=== PATIENT | male | born 1945 | race Caucasian/White ===

== ENCOUNTER 2020-01-04 10:19 | Outpatient (CLI) | payer MEDICARE, SELFPAY ==
--- NOTE | ~2020-01-04 | XR_ITS ---
EXAMINATION: XR lumbar spine 2-3V EXAM DATE: 01/04/2020 10:38 INDICATION: Fall one month ago. Low back pain. TECHNIQUE: Lumber spine frontal, lateral, lateral L5-S1 projections for interpretation. There is no prior study for comparison. FINDINGS: There is moderate disc disease at L4-5 with 2-3 mm retrolisthesis. Mild to moderate disc d isease L3-4. Small endplate osteophytes at these 2 levels. There is moderate lumbar facet arthropathy . No spondylolysis. No endplate erosive change. There is moderate aortoiliac arteriosclerotic disease . Paraspinal soft tissue otherwise unremarkable. Vertebral body heights are maintained. There are no acute fractures identified. IMPRESSION: Moderate lumbar spondylosis. Reviewed, dictated and finalized at location B.
== END 2020-01-04 10:20 | disposition home or self-care (01) ==
PROVIDERS: PCP Emergency Medicine; Visit Provider Emergency Medicine
DX: G89.29 Other chronic pain (principal); M54.9 Dorsalgia, unspecified; M47.896 Other spondylosis, lumbar region
CPT/HCPCS: 72100

== ENCOUNTER 2020-02-02 12:29 | Outpatient (CLI) | payer MEDICARE, SELFPAY ==
--- NOTE | ~2020-02-02 | CT_ITS ---
EXAMINATION: CT lung screening DATE: 02/02/2020 13:19 INDICATION: Personal history of tobacco dependence, current smoker with 260 pack year history TECHNIQUE: Computed tomography (CT) of the chest was performed without intravenous contrast. The dose -length product (DLP) was 195.96 mGy-cm. 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 COMPARISON: None FINDINGS: There is moderate emphysema. No suspicious pulmonary nodules are identified. Mild dependent atelectasis is noted. There is no pleural effusion or pneumothorax. There are changes of prior cardi ac surgery. Mild bilateral gynecomastia is noted. No pathologically enlarged thoracic lymph nodes are identified. The heart size is normal. There is mild thoracic spondylosis. IMPRESSION: 1. Lung-RADS category 1: Negative. Continue annual screening with noncontrast low-dose chest CT in 12 months. Reviewed, dictated and finalized at location A. IMPRESSION: 1. Lung-RADS category 1: Negative. Continue annual screening with noncontrast l ow-dose chest CT in 12 months.
== END 2020-02-02 12:30 | disposition home or self-care (01) ==
PROVIDERS: PCP Emergency Medicine; Visit Provider Internal Medicine Critical Care Medicine
DX: Z12.2 Encounter for screening for malignant neoplasm of respiratory organs (principal); Z87.891 Personal history of nicotine dependence
CPT/HCPCS: G0297

== ENCOUNTER 2020-05-14 08:42 | Outpatient (CLI) | payer MEDICARE, SELFPAY ==
--- NOTE | ~2020-05-14 | CT_ITS ---
EXAMINATION: CT soft tissue neck chest wo EXAM DATE: 05/14/2020 09:14 INDICATION: Shortness of breath, cough. Emphysema. Generalized swelling of neck. Skin cancer. TECHNIQUE: Spiral CT of the neck and chest was performed without contrast. Axial, coronal and sagit cheng images of the neck were reviewed. Axial, coronal and sagittal images of the chest were reviewed. Coronal maximum intensity pixel images of chest reviewed. The dose-length product (DLP) for this e xamination was 1150.36 mGy-cm. The exposure was tailored according to patient size (auto mA exposure control), and iterative reconstruction (ASIR) was used as additional dose reduction technique. Rivera rison is made to prior examination from chest CT 02/02/2020. FINDINGS: NECK: Bilateral internal jugular chain region surgical clips probably endarterectomies but correlate with prior history. The thyroid gland is unremarkable. The submandibular and parotid glands are sy mmetric. There is no cervical lymphadenopathy. There are no masses identified. The airway is un remarkable. Parapharyngeal and pre-glottic fat planes are preserved. Limited evaluation of cervic al vessels on this noncontrast study. Patient has had bilateral ocular lens surgery. There is sma ll to moderate-sized left maxillary sinus retention cyst. There is cervical spondylosis. Sternotomy wires. CHEST: There is mild to moderate emphysema. Some linear right middle lobe scarring unchanged. There are no pleural or pericardial effusions. Tracheobronchial tree is patent. There is no mediastinal , hilar or axillary lymphadenopathy. There is no pneumothorax. Heart normal in size. There are sternotomy wires, and cardiac/coronary surgical changes. Correlate with prior history. Upper abdomen is unremarkable. There is thoracic spondylosis without osteoblastic or osteolytic lesions identifi ed. IMPRESSION: 1. Surgical changes. 2. Left maxillary sinus retention cyst. 3. Mild to moderate emphysema. 4. Linear right middle lobe scarring. Reviewed, dictated and finalized at location B. DENTIAL TECH
== END 2020-05-14 08:43 | disposition home or self-care (01) ==
PROVIDERS: PCP Emergency Medicine; Visit Provider Emergency Medicine
DX: M79.89 Other specified soft tissue disorders (principal); J32.0 Chronic maxillary sinusitis; J43.9 Emphysema, unspecified
CPT/HCPCS: 70490; 71250

== ENCOUNTER 2021-04-04 09:17 | Outpatient (CLI) | payer MEDICARE, SELFPAY ==
[2021-04-04 10:44] LABS: Alanine Aminotransferase 27 U/L (4-50); Albumin Level 4.8 g/dL (3.5-5.1); Alkaline Phosphatase 44 U/L (38-126); Anion Gap 10 mmol/L (8-16); Aspartate Amino Transferase 30 U/L (17-59); Bilirubin,Total 0.6 mg/dL (0.2-1.3); Blood Urea Nitrogen 19 mg/dL (9-20); Calcium 9.8 mg/dL (8.4-10.2); Carbon Dioxide 28 mmol/L (22-30); Chloride 105 mmol/L (98-107); Cholesterol 184 mg/dL (0-200); Creatine Kinase 98 U/L (55-170); Estimated Glomerular Filt Rate > 60; Glucose 147 mg/dL (65-110); HDL Direct 47 mg/dL; Potassium 4.8 mmol/L (3.4-5.0); Sodium 143 mmol/L (137-145); Triglycerides 262 mg/dL (<150)
[2021-04-04 10:55] LABS: LDL Cholesterol Direct 104 mg/dL
== END 2021-04-04 09:18 | disposition home or self-care (01) ==
PROVIDERS: PCP Emergency Medicine; Referring Provider Emergency Medicine
DX: E78.5 Hyperlipidemia, unspecified (principal); E11.9 Type 2 diabetes mellitus without complications
CPT/HCPCS: 36415; 80053; 80061; 82550; 83036

== ENCOUNTER 2021-07-31 09:34 | Outpatient (CLI) | payer MEDICARE, SELFPAY ==
[2021-07-31 10:15] LABS: Hemoglobin A1C 8.4 % (<5.7)
[2021-07-31 10:19] LABS: Alanine Aminotransferase 27 U/L (4-50); Albumin Level 4.3 g/dL (3.5-5.1); Alkaline Phosphatase 41 U/L (38-126); Anion Gap 6 mmol/L (8-16); Aspartate Amino Transferase 28 U/L (17-59); Bilirubin,Total 0.6 mg/dL (0.2-1.3); Blood Urea Nitrogen 18 mg/dL (9-20); Calcium 9.5 mg/dL (8.4-10.2); Carbon Dioxide 29 mmol/L (22-30); Chloride 106 mmol/L (98-107); Cholesterol 163 mg/dL (0-200); Estimated Glomerular Filt Rate > 60; Glucose 143 mg/dL (65-110); HDL Direct 44 mg/dL; Potassium 4.3 mmol/L (3.4-5.0); Sodium 141 mmol/L (137-145); Triglycerides 225 mg/dL (<150)
[2021-07-31 10:30] LABS: LDL Cholesterol Direct 82 mg/dL
[2021-07-31 11:10] LABS: Creatinine Urine 137.7 mg/dL
[2021-07-31 11:15] LABS: MALB Creatinine Ratio 47.7 mg/g (0-30); Microalbumin Urine Random 65.7 mg/L (0-16.7)
== END 2021-07-31 09:35 | disposition home or self-care (01) ==
LOC: ANHLAB 09:39
PROVIDERS: PCP Emergency Medicine; Visit Provider Emergency Medicine
DX: E11.9 Type 2 diabetes mellitus without complications (principal); E78.5 Hyperlipidemia, unspecified
CPT/HCPCS: 36415; 80053; 80061; 82043; 83036

== ENCOUNTER 2021-11-07 07:10 | Outpatient (CLI) | payer MEDICARE, SELFPAY ==
[2021-11-07 07:48] LABS: Albumin Level 4.1 g/dL (3.5-5.1); Anion Gap 7 mmol/L (8-16); Blood Urea Nitrogen 31 mg/dL (9-20); Calcium 8.8 mg/dL (8.4-10.2); Carbon Dioxide 27 mmol/L (22-30); Chloride 106 mmol/L (98-107); Estimated Glomerular Filt Rate 54; Glucose 162 mg/dL (65-110); Phosphorus 3.6 mg/dL (2.5-4.5); Sodium 140 mmol/L (137-145)
[2021-11-07 08:04] LABS: Creatinine Urine 131.1 mg/dL
[2021-11-07 08:07] LABS: Microalbumin Urine Random 52.4 mg/L (0-16.7)
[2021-11-07 08:18] LABS: Creatinine Urine 130.8 mg/dL; Total Protein Urine Random 9 mg/dL; Ur Ttl Prot Creatinine Ratio 0.07 mg/mg (0-0.20)
[2021-11-07 08:28] LABS: Alanine Aminotransferase 21 U/L (4-50); Albumin Level 4.2 g/dL (3.5-5.1); Alkaline Phosphatase 37 U/L (38-126); Anion Gap 6 mmol/L (8-16); Aspartate Amino Transferase 26 U/L (17-59); Bilirubin,Total 0.4 mg/dL (0.2-1.3); Blood Urea Nitrogen 31 mg/dL (9-20); Calcium 8.8 mg/dL (8.4-10.2); Carbon Dioxide 28 mmol/L (22-30); Chloride 106 mmol/L (98-107); Cholesterol 167 mg/dL (0-200); Estimated Glomerular Filt Rate 49; Glucose 164 mg/dL (65-110); HDL Direct 38 mg/dL; Sodium 140 mmol/L (137-145); Triglycerides 250 mg/dL (<150)
[2021-11-07 08:43] LABS: LDL Cholesterol Direct 83 mg/dL
[2021-11-07 08:58] LABS: Hemoglobin A1C 7.7 % (<5.7)
[2021-11-07 09:01] LABS: Prostate Specific Antigen 1.5 ng/mL (< OR = 4.0)
== END 2021-11-07 07:11 | disposition home or self-care (01) ==
PROVIDERS: PCP Emergency Medicine; Visit Provider Emergency Medicine
DX: E11.9 Type 2 diabetes mellitus without complications (principal); E78.5 Hyperlipidemia, unspecified; Z12.5 Encounter for screening for malignant neoplasm of prostate; I12.9 Hypertensive chronic kidney disease with stage 1 through stage 4 chronic kidney disease, or unspecified chronic kidney disease; N18.2 Chronic kidney disease, stage 2 (mild)
CPT/HCPCS: 36415; 80053; 80061; 80069; 82043; 82570; 83036; 84153; 84156; G0103

== ENCOUNTER 2021-12-15 11:43 | Outpatient (CLI) | payer MEDICARE, SELFPAY ==
--- NOTE | ~2021-12-15 | CT_ITS ---
EXAMINATION: CT cervical spine wo con DATE: 12/15/2021 12:14 INDICATION: Neck pain. Head injury. TECHNIQUE: Computed tomography (CT) of the cervical spine was performed without intravenous contrast. Automated exposure control and iterative reconstruction technique were employed. The dose-length pro duct was 488.85 mGy-cm. COMPARISON: None FINDINGS: There is mild emphysema. There are surgical clips in the neck bilaterally. There is 4 degre es dextrocurvature of cervical spine. There is 2 mm anterolisthesis of C7 on T1. Vertebral body heigh ts are normal. There is mildly decreased disc height at C4-C5, severely decreased disc height at C5-C 6 and C6-C7, and mildly decreased disc height at C7-T1. Osseous central spinal canal is developmental ly small from C3 to C7. The following disc levels are specifically discussed: C2-C3: There is mild right and severe left uncovertebral joint osteoarthritis. There is severe bilate ral facet joint osteoarthritis. There is moderate left neural foraminal stenosis. There is no central canal stenosis. C3-C4: There is mild bilateral uncovertebral joint osteoarthritis. There is severe bilateral facet fermin int osteoarthritis. There is mild bilateral neural foraminal stenosis. There is no central canal sten osis. C4-C5: There is severe bilateral uncovertebral joint osteoarthritis. There is severe right and modera te left facet joint osteoarthritis. There is mild bilateral neural foraminal stenosis. There is mild central canal stenosis. C5-C6: There is severe right and mild left uncovertebral joint osteoarthritis. There is mild bilatera l facet joint osteoarthritis. There is mild bilateral neural foraminal stenosis. There is mild centra l canal stenosis. C6-C7: There is severe bilateral uncovertebral joint osteoarthritis. There is moderate bilateral face t joint osteoarthritis. There is moderate bilateral neural foraminal stenosis. There is moderate cent ral canal stenosis. C7-T1: There is no uncovertebral joint osteoarthritis. There is severe bilateral facet joint osteoart hritis. There is moderate bilateral neural foraminal stenosis. There is no central canal stenosis. IMPRESSION: 1. No fracture. 2. Severe cervical spondylosis. Reviewed, dictated and finalized at location A.
--- NOTE | ~2021-12-15 | CT_ITS ---
EXAMINATION: CT brain wo con DATE: 12/15/2021 12:14 INDICATION: Head injury. TECHNIQUE: Computed tomography (CT) of the head was performed without intravenous contrast. The mA wa s adjusted according to patient size. Iterative reconstruction technique was employed. The dose-lengt h product was 605.33 mGy-cm. COMPARISON: None FINDINGS: There is a 15 mm calcified extra-axial mass overlying right frontoparietal region. There is no acute ischemic infarct or intracranial hemorrhage. There are scattered areas of low attenuation i n the cerebral white matter, which is within normal limits for the patient's age. The ventricles are normal in size. There is mild mucosal thickening in the paranasal sinuses. There are likely changes o f ocular lens replacement surgeries. The mastoid air cells are normal. IMPRESSION: 1. 15 mm calcified extra-axial mass overlying right frontoparietal region, consistent with a meningio ma. Reviewed, dictated and finalized at location A. IMPRESSION: 1. 15 mm calcified extra-axial mass overlying right frontoparietal region, cons istent with a meningioma.
== END 2021-12-15 11:44 | disposition home or self-care (01) ==
PROVIDERS: PCP Emergency Medicine; Visit Provider Emergency Medicine
DX: S09.90XA Unspecified injury of head, initial encounter (principal); X58.XXXA Exposure to other specified factors, initial encounter; M47.892 Other spondylosis, cervical region
CPT/HCPCS: 70450; 72125

== ENCOUNTER 2021-12-31 08:04 | Outpatient (CLI) | payer MEDICARE, SELFPAY ==
--- NOTE | ~2021-12-31 | MR_ITS ---
EXAMINATION: MR brain/brain stem wo con DATE: 12/31/2021 08:45 INDICATION: Extra-axial brain tumor. TECHNIQUE: Magnetic resonance imaging (MRI) of the brain and brainstem was performed without intraven ous contrast. COMPARISON: Head CT 12/15/21 FINDINGS: There are diffuse scattered foci of old microhemorrhage in the brain. There are scattered a reas of nonspecific increased T2-weighted signal intensity in the cerebral white matter and sharonda, whi ch is within normal limits for the patient's age. There is a 15 mm calcified extra-axial mass overlyi ng right frontoparietal region. The ventricles are normal in size. There is a mucous retention cyst i n left maxillary sinus. The mastoid air cells are normal. IMPRESSION: 1. 15 mm calcified extra-axial mass overlying right frontoparietal region, consistent with a meningio ma. 2. Foci of old microhemorrhage in the brain, which may be seen with chronic hypertensive encephalopat hy or amyloid angiopathy. Reviewed, dictated and finalized at location A. IMPRESSION: 1. 15 mm calcified extra-axial mass overlying right frontoparietal region, cons istent with a meningioma. 2. Foci of old microhemorrhage in the brain, which may be seen with chronic hyp ertensive encephalopathy or amyloid angiopathy.
== END 2021-12-31 08:05 | disposition home or self-care (01) ==
PROVIDERS: PCP Emergency Medicine; Visit Provider Emergency Medicine
DX: D49.6 Neoplasm of unspecified behavior of brain (principal); R93.0 Abnormal findings on diagnostic imaging of skull and head, not elsewhere classified
CPT/HCPCS: 70551

== ENCOUNTER 2022-04-07 06:50 | Outpatient (CLI) | payer MEDICARE, SELFPAY ==
--- NOTE | ~2022-04-07 | MR_ITS ---
EXAMINATION: MR abdomen wo/w con INDICATION: Indeterminate liver lesion identified on outside hospital CT from October 2021, history of alcohol and tobacco use TECHNIQUE: Coronal SSFSE ARC, WATER:coronal LAVA-FLEX, Coronal 2D FIESTA FatSat, Axial SSFSE BH ARC, Axial 3D DualEcho BH, Axial SSFSE-IR, Axial DWI b=500, Axial 2D FIESTA FatSat, pre and dynamic postco ntrast Axial LAVA ARC, postcontrast Coronal In and Opposed phase LAVA FLEX COMPARISON: None available CONTRAST: Multihance, 20 cc FINDINGS: There is an approximately 5.9 x 5.0 cm mass in liver segment V/ (previously measuring 4.3 x 4.1 cm based on description an oncologist note). The mass demonstrates heterogeneous T2 signal int ensity with some isointense areas and other hyperintense regions. The T2 isointense regions are mildl y hypointense on T1-weighted images. The dilated T2 hyperintense areas are moderately T1 hypointense. There is progressive, heterogeneous enhancement of the mass on postcontrast imaging. There is mild a ssociated capsular retraction. No additional liver mass is identified. The spleen, gallbladder, and a drenal glands are normal. There is a 4 mm round cystic lesion in the body of the pancreas without com munication with the main pancreatic duct. A similar appearing 3 mm lesion is seen in the head of the pancreas. There are no pathologically enlarged abdominal lymph nodes. The kidneys are unremarkable. T here are no dilated loops of bowel. IMPRESSION: 1. Mass of the right hepatic lobe with interval enlargement (based on prior report) which may reflect primary malignancy such as hepatocellular carcinoma or cholangiocarcinoma or metastatic disease. Bio psy is recommended. Reviewed, dictated and finalized at location A. IMPRESSION: 1. Mass of the right hepatic lobe with interval enlargement (based on prior rep ort) which may reflect primary malignancy such as hepatocellular carcinoma or c holangiocarcinoma or metastatic disease. Biopsy is recommended.
[2022-04-07 10:06] LABS: Alanine Aminotransferase 35 U/L (6-50); Albumin Level 4.4 g/dL (3.5-5.1); Alkaline Phosphatase 43 U/L (38-126); Anion Gap 10 mmol/L (8-16); Aspartate Amino Transferase 35 U/L (17-59); Bilirubin,Total 0.6 mg/dL (0.2-1.3); Blood Urea Nitrogen 24 mg/dL (9-20); Calcium 9.6 mg/dL (8.4-10.2); Carbon Dioxide 26 mmol/L (22-30); Chloride 103 mmol/L (98-107); Cholesterol 156 mg/dL (0-200); Estimated Glomerular Filt Rate 46; Glucose 140 mg/dL (65-110); HDL Direct 45 mg/dL; Potassium 4.4 mmol/L (3.4-5.0); Sodium 139 mmol/L (137-145); Triglycerides 149 mg/dL (<150)
[2022-04-07 10:14] LABS: Hemoglobin A1C 7.5 % (<5.7)
[2022-04-07 10:17] LABS: LDL Cholesterol Direct 95 mg/dL
[2022-04-07 10:45] LABS: Microalbumin Urine Random 13.2 mg/L (0-16.7)
[2022-04-07 10:47] LABS: Creatinine Urine 13.6 mg/dL; MALB Creatinine Ratio 97.1 mg/g (0-30)
== END 2022-04-07 06:51 | disposition home or self-care (01) ==
PROVIDERS: PCP Emergency Medicine; Visit Provider Internal Medicine Hematology & Oncology
DX: E78.5 Hyperlipidemia, unspecified (principal); E11.9 Type 2 diabetes mellitus without complications; K76.9 Liver disease, unspecified
CPT/HCPCS: 36415; 74183; 80053; 80061; 82043; 82105; 83036; 85025; A9577

== ENCOUNTER 2022-04-07 08:26 | Outpatient (CLI) | payer MEDICARE, SELFPAY ==
[2022-04-07 09:54] LABS: Basophils Percent Auto 0.2 % (0.2-1.2); Eosinophils Absolute Auto 0.1 K/mm3 (0-0.3); Eosinophils Percent Auto 1.2 % (0-4.4); Hematocrit 46.1 % (42.0-52.0); Hemoglobin 14.9 g/dL (14.0-18.0); Immature Granulocyte Absolute 0.07 K/mm3 (0.00-0.031); Immature Granulocyte Percent A 0.8 % (0-0.5); Lymphocytes Absolute Auto 1.45 K/mm3 (0.9-3.2); Lymphocytes Percent Auto 16.4 % (18.3-44.2); Mean Corpuscular HGB Conc 32.3 g/dl (32-36); Mean Corpuscular Hemoglobin 32.5 pg (26-34); Mean Corpuscular Volume 100.7 fl (80-100); Mean Platelet Volume 10.9 fl (7.4-10.4); Monocytes Absolute Auto 0.9 K/mm3 (0.1-0.6); Monocytes Percent Auto 9.8 % (2.6-8.5); Neutrophils Absolute Auto 6.3 K/mm3 (1.3-6.7); Neutrophils Percent Auto 71.6 % (45.5-73.1); Platelet Count Result 207 k/mm3 (150-375); Red Blood Count 4.58 M/mm3 (4.6-6.20); Red Cell Distribution Width 13.2 % (11.5-14.5); White Blood Count 8.9 K/mm3 (4.5-10.0)
[2022-04-07 10:07] LABS: Alanine Aminotransferase 35 U/L (6-50); Albumin Level 4.4 g/dL (3.5-5.1); Alkaline Phosphatase 42 U/L (38-126); Anion Gap 11 mmol/L (8-16); Aspartate Amino Transferase 36 U/L (17-59); Bilirubin,Total 0.6 mg/dL (0.2-1.3); Blood Urea Nitrogen 24 mg/dL (9-20); Calcium 9.4 mg/dL (8.4-10.2); Carbon Dioxide 25 mmol/L (22-30); Chloride 103 mmol/L (98-107); Estimated Glomerular Filt Rate 49; Glucose 140 mg/dL (65-110); Potassium 4.4 mmol/L (3.4-5.0); Sodium 139 mmol/L (137-145)
[2022-04-12 17:59] LABS: Alpha Fetoprotein Tumor Marker 1394.5 ng/mL (<6.1)
== END 2022-04-07 08:27 | disposition home or self-care (01) ==
PROVIDERS: PCP Emergency Medicine; Visit Provider Internal Medicine Hematology & Oncology
DX: K76.9 Liver disease, unspecified (principal)
CPT/HCPCS: 36415; 80053; 82105; 85025

== ENCOUNTER 2022-04-27 03:09 | Outpatient (CLI) | payer MEDICARE, SELFPAY ==
--- NOTE | 2022-04-16 11:38 | PC.NURSE ---
Pre Radiology instructions Report to the Outpatient Waiting Room, entrance under the green pavilion located off [facility], at time __729 on date . Procedure Time: . YOU MAY BE MONITORED AT HOSPITAL FOR UP TO 4 HOURS AFTER YOUR PROCEDURE. One visitor will be allowed to accompany the patient into the hospital. The visitor will be instructed to remain with patient at all times or leave the building due to restrictions. We will allow the visitor to come back to the postoperative area when patient is ready. NO children visitors allowed at this time. You and your visitor will be asked to self-screen and do not enter if you have any COVID symptoms. A mask is required within the hospital. Patients are to have no food or drink 6 hours prior to procedure time Driving will be restricted after the procedure, you must have a person to drive you home. Labs will be drawn in preop area and once reviewed, you will be taken to radiology area for procedure. When the procedure is completed, you will be taken to outpatient where you will be monitored for several hours. You may have one visitor in this area. Other than holding anti-coagulants, patient may take other medication(s) as scheduled. Prior to your appointment date patients are instructed to hold anti-coagulants after discussing with ordering provider to stop. If unable to discontinue anti-coagulants please notify radiologist. No aspirin or warfarin (Coumadin) for 7 days prior to the procedure. No clopidogrel (Plavix), ticagrelor (Brilinta), prasugrel (Effient) or dabigatran (Pradaxa) for 5 days prior to the procedure. No rivaroxaban (Xarelto), apixaban (Eliquis), dipyridamole (Aggrenox or Persantine) or cilostazol (Pletal) for 2 days prior to the procedure. Medications to discontinue per physician: _PLAVIX__ Date to take last dose: ___04/21/22____ Please leave all valuables, including medications, at home the day of procedure. The hospital will not accept responsibility for valuables. Wear comfortable, loose fitting clothing. Follow any additional instructions given to you from ordering provider. Telephone instructions given to ___PT and asked if any additional questions and then verbalized understanding. Patient advised to call scheduling provider office or registration scheduling [phone] if any additional questions.
[2022-04-16 11:40] VITALS: BMI 27.6
[2022-04-27] VITALS (12 sets, daily range): BP systolic 120–148; BP diastolic 50–71; PULSE 54–84; RESP 16–18; TEMP 36.1; O2SAT 92–96
--- NOTE | ~2022-04-27 | US_ITS ---
EXAMINATION: US biopsy liver DATE: 04/27/2022 09:52 INDICATION: Liver lesion TECHNIQUE: The procedure including the risks and benefits was discussed with the patient. Risks discu ssed included bleeding and infection. The patient understood the risks and agreed to proceed. The sk in overlying the liver was prepped and draped in usual sterile fashion. Anesthetic was administered with 1% lidocaine subcutaneously. An 18 gauge core biopsy needle was advanced under continuous ultra sound observation to the lesion of interest. 3 core biopsy specimens were obtained. The needle was removed and the entry site was cleaned and dressed. Post procedure ultrasound demonstrated no hemorr silviano. FINDINGS: Ultrasound images demonstrate a 6.1 x 5.3 x 4.7 cm heterogeneous the hypoechoic mass in the right hepatic lobe. Subsequent images demonstrate biopsy needle advanced into the mass. IMPRESSION: 1. Successful Ultrasound-guided biopsy of a 6.1 cm right hepatic lobe mass. Reviewed, dictated and finalized at location A.
[2022-04-27] MEDS: SODIUM CHLORIDE 0.9% IV 1,000 ML 30 ML IV CONT (08:00)
[2022-04-27 08:03] LABS: Glucose Point of Care 119 mg/dl (65-105)
--- NOTE | 2022-04-27 08:03 | SUR.PREOP ---
Notified US staff that patient is ready and blood is in the lab.
[2022-04-27 08:07] LABS: INR 1.1; Prothrombin Time 13.7 Seconds (11.1-14.7)
[2022-04-27 10:20] LABS: Glucose Point of Care 95 mg/dl (65-105)
== END 2022-04-27 13:58 | disposition home or self-care (01) ==
PROVIDERS: Radiology Diagnostic Radiology; PCP Emergency Medicine; Referring Provider Internal Medicine Hematology & Oncology; Visit Provider Radiology Diagnostic Radiology
PROC: BF45ZZZ Ultrasonography of Liver (ICD-10-PCS; CPT 47000; principal; 2022-04-27 09:30)
DX: C22.8 Malignant neoplasm of liver, primary, unspecified as to type (principal)
CPT/HCPCS: 36415; 47000; 76942; 82948; 85610; 88307; 88312; 88342; J7030

== ENCOUNTER 2022-05-14 11:35 | Outpatient (CLI) | payer MEDICARE, SELFPAY ==
[2022-05-14 12:40] LABS: INR 1.1; Prothrombin Time 13.3 Seconds (11.1-14.7)
[2022-05-14 12:42] LABS: Alanine Aminotransferase 25 U/L (6-50); Albumin Level 4.8 g/dL (3.5-5.1); Alkaline Phosphatase 43 U/L (38-126); Anion Gap 13 mmol/L (8-16); Aspartate Amino Transferase 31 U/L (17-59); Bilirubin,Total 0.7 mg/dL (0.2-1.3); Blood Urea Nitrogen 33 mg/dL (9-20); Calcium 9.6 mg/dL (8.4-10.2); Carbon Dioxide 25 mmol/L (22-30); Chloride 103 mmol/L (98-107); Estimated Glomerular Filt Rate 42; Glucose 121 mg/dL (65-110); Sodium 141 mmol/L (137-145)
[2022-05-14 13:48] LABS: Carcinoembryonic Antigen 1.7 ng/mL (0.0-3.0)
== END 2022-05-14 11:36 | disposition home or self-care (01) ==
LOC: ANHLAB 11:51
DX: C22.0 Liver cell carcinoma (principal); R16.0 Hepatomegaly, not elsewhere classified; R97.8 Other abnormal tumor markers
CPT/HCPCS: 36415; 80053; 82378; 85610

== ENCOUNTER 2022-10-14 07:55 | Outpatient (CLI) | payer MEDICARE, SELFPAY ==
[2022-10-14 08:31] LABS: Alanine Aminotransferase 25 U/L (6-50); Alkaline Phosphatase 69 U/L (38-126); Anion Gap 6 mmol/L (8-16); Aspartate Amino Transferase 29 U/L (17-59); Bilirubin,Total 0.8 mg/dL (0.2-1.3); Blood Urea Nitrogen 27 mg/dL (9-20); Carbon Dioxide 27 mmol/L (22-30); Chloride 106 mmol/L (98-107); Cholesterol 168 mg/dL (0-200); Estimated Glomerular Filt Rate 49; Glucose 234 mg/dL (65-110); HDL Direct 45 mg/dL; Potassium 3.4 mmol/L (3.4-5.0); Sodium 139 mmol/L (137-145); Triglycerides 230 mg/dL (<150)
[2022-10-14 08:42] LABS: LDL Cholesterol Direct 83 mg/dL
[2022-10-14 09:00] LABS: Hemoglobin A1C 6.6 % (<5.7)
[2022-10-14 09:26] LABS: Creatinine Urine 246.6 mg/dL
[2022-10-14 09:42] LABS: MALB Creatinine Ratio 114.9 mg/g (0-30); Microalbumin Urine Random 283.4 mg/L (0-16.7)
== END 2022-10-14 07:56 | disposition home or self-care (01) ==
PROVIDERS: PCP Emergency Medicine; Visit Provider Emergency Medicine
DX: E11.9 Type 2 diabetes mellitus without complications (principal); I10 Essential (primary) hypertension
CPT/HCPCS: 36415; 80053; 80061; 82043; 83036

== ENCOUNTER 2022-11-17 07:37 | Outpatient (CLI) | payer MEDICARE, SELFPAY ==
--- NOTE | ~2022-11-17 | US_ITS ---
US abdomen limited INDICATION: Right liver lobe mass. PROCEDURE: Realtime right upper abdominal ultrasound. COMPARISON: Ultrasound dated 04/27/2022 and MRI dated 04/07/2022 FINDINGS: The pancreas is not well visualized due to bowel gas. In the right hepatic lobe there is a n irregular shaped abdominally hypoechoic mass in a subcapsular location measuring 3.2 x 2.6 x 3 cm c ompared with 6.1 x 5.3 x 4.7 cm on previous ultrasound dated 04/27/2022. There is normal directional flow in the portal vein. The gallbladder is normal without stones, gallbladder wall thickening or pericholecystic fluid. Comm on bile duct measures 5 mm. No sonographic Fung's sign. Patient described a palpable lump at the bottom of the right rib cage. No discrete sonographic abnorm ality is identified in this area. IMPRESSION: 1: Decreased size of right hepatic lobe mass now measuring 3.2 x 2.6 x 3 cm, consistent with interval response to therapy. Reviewed, dictated and finalized at location L. IMPRESSION: 1: Decreased size of right hepatic lobe mass now measuring 3.2 x 2.6 x 3 cm, co nsistent with interval response to therapy.
== END 2022-11-17 07:38 | disposition home or self-care (01) ==
PROVIDERS: PCP Emergency Medicine
DX: R16.0 Hepatomegaly, not elsewhere classified (principal)
CPT/HCPCS: 76705

== ENCOUNTER 2023-02-22 14:41 | Outpatient (CLI) | payer MEDICARE, SELFPAY ==
--- NOTE | ~2023-02-22 | CT_ITS ---
EXAMINATION: CTA chest PE protocol DATE: 02/22/2023 15:13 INDICATION: Hemoptysis. TECHNIQUE: Computed tomography angiography (CTA) of the chest was performed with 100 mL Omnipaque-350 intravenous contrast timed to evaluate the pulmonary arteries. Coronal maximum intensity projection 3D-reconstructions were created by the technologist. Automated exposure control and iterative reconst ruction technique were employed. The dose-length product was 562.53 mGy-cm. COMPARISON: Chest CT 05/14/2020 FINDINGS: There is moderate emphysema. There is mild atelectasis bilaterally. Calcified left lung nod ules and calcified left hilar lymph nodes are consistent with old granulomatous disease. No pleural e ffusion. The heart size is normal. No pericardial effusion. There are coronary artery calcifications. There is no pulmonary embolus. Aortic atherosclerosis is noted. There is bilateral gynecomastia. Med valeria sternotomy wires are noted. There is severe cervical spondylosis. IMPRESSION: 1. No pulmonary embolus. 2. Moderate emphysema. Reviewed, dictated and finalized at location A.
[2023-02-22 15:07] LABS: Estimated Glomerular Filt Rate 33
== END 2023-02-22 14:42 | disposition home or self-care (01) ==
PROVIDERS: PCP Emergency Medicine; Visit Provider Physician Assistant
DX: R04.2 Hemoptysis (principal); J43.9 Emphysema, unspecified
CPT/HCPCS: 71275; Q9967

== ENCOUNTER 2023-04-20 10:08 | Outpatient (CLI) | payer MEDICARE, SELFPAY ==
[2023-04-20 11:02] LABS: Hemoglobin A1C 6.7 % (<5.7)
[2023-04-20 11:11] LABS: Alanine Aminotransferase 20 U/L (6-50); Albumin Level 4.1 g/dL (3.5-5.1); Alkaline Phosphatase 68 U/L (38-126); Anion Gap 6 mmol/L (8-16); Aspartate Amino Transferase 31 U/L (17-59); Bilirubin,Total 1.1 mg/dL (0.2-1.3); Blood Urea Nitrogen 23 mg/dL (9-20); Calcium 9.2 mg/dL (8.4-10.2); Carbon Dioxide 33 mmol/L (22-30); Chloride 101 mmol/L (98-107); Cholesterol 148 mg/dL (0-200); Estimated Glomerular Filt Rate 49; Glucose 149 mg/dL (65-110); HDL Direct 46 mg/dL; Potassium 3.8 mmol/L (3.4-5.0); Sodium 140 mmol/L (137-145); Triglycerides 126 mg/dL (<150)
[2023-04-20 11:16] LABS: Creatinine Urine 93.8 mg/dL
[2023-04-20 11:20] LABS: MALB Creatinine Ratio 188.1 mg/g (0-30); Microalbumin Urine Random 176.4 mg/L (0-16.7)
[2023-04-20 11:23] LABS: LDL Cholesterol Direct 74 mg/dL
== END 2023-04-20 10:09 | disposition home or self-care (01) ==
PROVIDERS: PCP Emergency Medicine; Referring Provider Specialist; Visit Provider Emergency Medicine
DX: E11.9 Type 2 diabetes mellitus without complications (principal); I10 Essential (primary) hypertension
CPT/HCPCS: 36415; 80053; 80061; 82043; 83036

== ENCOUNTER 2023-05-07 06:48 | Outpatient (CLI) | payer MEDICARE, SELFPAY ==
--- NOTE | 2023-05-25 20:15 | WPDSLEEPSTUD ---
Sleep Study Date of Study: 05/07/23 Ordering Provider: KING Jung Interpreting Physician: Lena Smith DO Sleep Study Type: Split Polysomnogram Height: 1.83 m Weight: 87.09 kg Body Mass Index: 26.0 Neck Circumference (inches): 16 [place]: 5 Reason for Sleep Study Daytime hypersomnia Sleep History The patient is a 78-year-old male with aortic stenosis, hypertension, COPD, CKD, heart failure, coronary artery disease, dyslipidemia, peripheral vascular disease with multiple stents, hepatocellular carcinoma, current tobacco use and history of sleep apnea that had a sleep study ordered by his canoe inspector for evaluation of sleep apnea. The patient frequently awakens from sleep short of breath. He denies awakening at night with heartburn, belching or cough. He frequently snores but it is never loud enough that others complain. He rarely has trouble sleeping when he has a cold. He denies waking up gasping for air throughout the night. He rarely has breathing problems at night observed by himself or others. He denies sweating excessively at night. He denies having heart palpitations or irregular heartbeats during the night. He occasionally falls asleep during the day but never while driving. He denies sleep paralysis, cataplexy and hypnagogic / hypnopompic hallucinations. He denies having trouble at school or work due to sleepiness. He denies feeling afraid of going to sleep. He rarely has nightmares. He rarely remembers his dreams. He denies having thoughts racing through his mind. He occasionally feels sad, depressed and anxious. He frequently has muscular tension. He denies noticing parts of his body jerk. He denies kicking during the night. He frequently has crawling and aching feelings in his legs but denies having leg pain during the night. He denies grinding his teeth during sleep and denies awakening with morning jaw pain. He denies being bothered by pain during the day and denies being awakened by pain during the night. He denies waking up feeling stiff in the morning. He rarely wakes up with sore or achy muscles. He occasionally wakes up with pain in the neck, spine or other joints. He goes to bed between 10 pm- 2 am on weekdays. He does not have a set bedtime on the weekends. He can fall asleep relatively quickly. He wakes up 3 times throughout the night to urinate and smoke. It takes him 30-60 minutes to fall back asleep. He wakes up between 2-5 a.m. on weekdays. He does not have a set wake up time the weekends. He typically gets 4-5 hours of sleep per night. He does not stay in bed very long after waking up in the morning. He currently lives with his . He denies consuming any caffeinated beverages within 2 hours of bedtime. He denies engaging in physical exercise before bedtime. He will watch television before falling asleep. He will take naps in afternoon or the evening and they are refreshing. He has 1 pot of coffee per day. He currently smokes 2 packs of cigarettes per day. He has 10 alcoholic beverages per week. He denies recreational drug use. [facility] Past Medical History Medical History Abnormal laboratory test result Aortic stenosis, moderate Arterial occlusive disease Benign essential hypertension Body mass index [BMI] 28.0-28.9, adult (12/28/18) Body mass index [BMI] 29.0-29.9, adult (12/03/16) Body mass index [BMI] 30.0-30.9, adult (01/25/18) Body mass index [BMI] 31.0-31.9, adult (09/23/15) Chronic bronchitis with productive mucopurulent cough CKD stage G3b/A1, GFR 30-44 and albumin creatinine ratio <30 mg/g Dyspnea on exertion Femoral-popliteal bypass graft occlusion, left Heart disease, unspecified Heart failure, unspecified HTN (hypertension) Hypersomnia Hypoxemia Osteoarthrosis Other specified soft tissue disorders Pain and swelling of lower extremity Peripheral vascular disease Shortness of Breath Tobacco a
[2023-05-25 20:21] VITALS: BMI 26.0
== END 2023-05-08 07:21 | disposition home or self-care (01) ==
PROVIDERS: PCP Emergency Medicine; Visit Provider Physician Assistant
DX: G47.30 Sleep apnea, unspecified (principal); G47.33 Obstructive sleep apnea (adult) (pediatric)
CPT/HCPCS: 95811

== ENCOUNTER 2023-05-18 14:12 | Outpatient (CLI) | payer MEDICARE, SELFPAY ==
--- NOTE | 2023-05-18 16:58 | P.PCNSIX_ITS ---
Six Minute Walk Procedure Procedure Performed Pulmonary Stress Test (6 min walk) Six Minute Walk Six Minute Walk: This is a 6 minute walk test. The test was performed and interpreted in accordance with the 2014 ERS/ATS task force guidelines. Of note, the patient stopped the test at 5 minutes and 30 seconds due to leg pain. Findings: The patient's resting room air oxygen saturation measured by pulse oximetry was 90% and heart rate was 66 bpm. Patient ambulated for 274 meters an d oxygen saturation remained 89 to 93%. Heart rate at the end of the study was 86 bpm. The patient did not qualify for supplemental oxygen at rest or with ambulation. There are no prior studies for comparison.
--- NOTE | 2023-05-18 17:01 | P.PCNPFT_ITS ---
PFT Procedure Performed PFT Procedure Performed Spirometry with Pre/Post Bronchodilator Plethysmography (Lung Vol) Diffusing Cap (DLCO) Flow Vol Loop PFT Interpretation This is a pulmonary function test with pre and post-bronchodilator spirometry, plethysmography and diffusing capacity. The test was performed and results interpreted in accordance with the 2019 and 2005 ATS/ERS Task Force guidelines respectively using the Global Lung Function Initiative-2012 reference equations. Patient demonstrated good effort and cooperation. Reproducibility criteria were met. The quality of the pre bronchodilator spirometry maneuver was Grade A and post bronchodilator spirometry maneuver was Grade A. Findings: Spirometry: There is decreased maximal expiratory airflow at all lung volumes with concave expiratory flow tracing. The contour the inspiratory flow tracing is normal. The pre bronchodilator FVC is 4.85 L, 117% predicted. The pre bronchodilator FEV1 is 2.90 L, 94% predicted. The pre bronchodilator FEV1: FVC ratio 60%. The post bronchodilator FVC is 4.70 L, representing a 3% decrease. The post bronchodilator FEV1 is 2.69 L, representing a 7% decrease. The post bronchodilator FEV1: FVC ratio is 57%. Plethysmography: The total lung capacity is 8.50 L, 118% predicted. The functional residual capacity is 5.71 L, 147% predicted. The residual volume is 3.44 L, 131% predicted. Diffusing capacity: The diffusing capacity unadjusted for hemoglobin and carboxyhemoglobin is 14.4, 57% predicted. The diffusing capacity adjusted for alveolar volume is 2.46, 67% predicted. Impression: There is a mild obstructive abnormality with a normal FEV1 and without significant improvement after inhaling a single dose of albuterol. The increase in residual volume is consistent with air trapping from an obstructive abnormality. Hyperinflation is present as demonstrated by the increase in f unctional residual capacity and is consistent with an obstructive abnormality. The diffusing capacity unadjusted for hemoglobin and carboxyhemoglobin is moderately decreased and remains mildly decreased when adjusted when adjusted for alveolar volume. There are no prior studies for comparison
== END 2023-05-18 14:13 | disposition home or self-care (01) ==
LOC: ANHPFT 14:13
PROVIDERS: PCP Emergency Medicine; Visit Provider Physician Assistant
DX: J44.9 Chronic obstructive pulmonary disease, unspecified (principal); R94.2 Abnormal results of pulmonary function studies
CPT/HCPCS: 94060; 94618; 94726; 94729

== ENCOUNTER 2023-10-21 07:53 | Outpatient (CLI) | payer MEDICARE, SELFPAY ==
[2023-10-21 09:29] LABS: Alanine Aminotransferase 18 U/L (6-50); Albumin Level 4.1 g/dL (3.5-5.1); Alkaline Phosphatase 76 U/L (38-126); Anion Gap 6 mmol/L (4-12); Aspartate Amino Transferase 25 U/L (17-59); Bilirubin,Total 0.4 mg/dL (0.2-1.3); Blood Urea Nitrogen 21 mg/dL (9-20); Calcium 9.4 mg/dL (8.4-10.2); Carbon Dioxide 26 mmol/L (22-30); Chloride 108 mmol/L (98-107); Cholesterol 172 mg/dL (0-200); Estimated Glomerular Filt Rate 54; Glucose 161 mg/dL (65-110); HDL Direct 55 mg/dL; Potassium 3.7 mmol/L (3.4-5.0); Sodium 140 mmol/L (137-145); Triglycerides 150 mg/dL (<150)
[2023-10-21 09:42] LABS: LDL Cholesterol Direct 89 mg/dL
[2023-10-21 09:56] LABS: Vitamin D 25 Hydroxy 20.8 ng/mL
[2023-10-21 10:06] LABS: Creatinine Urine 92.6 mg/dL
[2023-10-21 10:18] LABS: Hemoglobin A1C 7.9 % (<5.7)
[2023-10-21 10:35] LABS: MALB Creatinine Ratio 219.8 mg/g (0-30); Microalbumin Urine Random 203.5 mg/L (0-16.7)
== END 2023-10-21 07:54 | disposition home or self-care (01) ==
LOC: ANHLAB 07:57
PROVIDERS: PCP Emergency Medicine; Visit Provider Emergency Medicine
DX: I10 Essential (primary) hypertension (principal); E55.9 Vitamin D deficiency, unspecified; E78.5 Hyperlipidemia, unspecified; E11.9 Type 2 diabetes mellitus without complications
CPT/HCPCS: 36415; 80053; 80061; 82043; 82306; 83036

== ENCOUNTER 2024-04-22 08:54 | Outpatient (CLI) | payer MEDICARE, SELFPAY ==
[2024-04-22 10:16] LABS: LDL Cholesterol Direct 44 mg/dL
[2024-04-22 10:19] LABS: Vitamin D 25 Hydroxy 37.3 ng/mL
[2024-04-22 10:22] LABS: Anion Gap 7 mmol/L (4-12); Blood Urea Nitrogen 31 mg/dL (9-20); Calcium 9.1 mg/dL (8.4-10.2); Carbon Dioxide 27 mmol/L (22-30); Chloride 106 mmol/L (98-107); Estimated Glomerular Filt Rate 37; Glucose 109 mg/dL (65-110); Phosphorus 3.8 mg/dL (2.5-4.5); Potassium 3.5 mmol/L (3.4-5.0); Prostate Specific Antigen 1.2 ng/mL (< OR = 4.0); Sodium 140 mmol/L (137-145)
[2024-04-22 10:23] LABS: Alanine Aminotransferase 21 U/L (6-50); Alkaline Phosphatase 64 U/L (38-126); Anion Gap 6 mmol/L (4-12); Aspartate Amino Transferase 34 U/L (17-59); Bilirubin,Total 0.9 mg/dL (0.2-1.3); Blood Urea Nitrogen 31 mg/dL (9-20); Calcium 9.2 mg/dL (8.4-10.2); Carbon Dioxide 27 mmol/L (22-30); Chloride 107 mmol/L (98-107); Cholesterol 137 mg/dL (0-200); Estimated Glomerular Filt Rate 37; Glucose 110 mg/dL (65-110); HDL Direct 62 mg/dL; Potassium 3.4 mmol/L (3.4-5.0); Sodium 140 mmol/L (137-145); Triglycerides 117 mg/dL (<150)
[2024-04-22 10:29] LABS: Creatinine Urine 142.5 mg/dL
[2024-04-22 10:32] LABS: Hemoglobin A1C 6.3 % (<5.7)
[2024-04-22 10:43] LABS: Parathyroid Intact 51.9 pg/mL (14.5-75.2)
[2024-04-22 11:07] LABS: MALB Creatinine Ratio 362.4 mg/g (0-30); Microalbumin Urine Random 516.4 mg/L (0-16.7)
[2024-04-22 19:05] LABS: Creatinine Urine 140.2 mg/dL; Total Protein Urine Random 107 mg/dL; Ur Ttl Prot Creatinine Ratio 0.76 mg/mg (0-0.20)
== END 2024-04-22 08:55 | disposition home or self-care (01) ==
PROVIDERS: PCP Emergency Medicine; Visit Provider Internal Medicine Nephrology
DX: E78.5 Hyperlipidemia, unspecified (principal); N17.9 Acute kidney failure, unspecified; N18.31 Chronic kidney disease, stage 3a; E11.22 Type 2 diabetes mellitus with diabetic chronic kidney disease; I12.9 Hypertensive chronic kidney disease with stage 1 through stage 4 chronic kidney disease, or unspecified chronic kidney disease; Z12.5 Encounter for screening for malignant neoplasm of prostate; E55.9 Vitamin D deficiency, unspecified
CPT/HCPCS: 36415; 80053; 80061; 80069; 82043; 82306; 82570; 83036; 83970; 84153; 84156; G0103

== ENCOUNTER 2024-06-29 11:33 | Outpatient (CLI) | payer MEDICARE, SELFPAY ==
[2024-06-29 13:15] LABS: Anion Gap 0 mmol/L (4-12); Blood Urea Nitrogen 25 mg/dL (9-20); Calcium 9.1 mg/dL (8.4-10.2); Carbon Dioxide 31 mmol/L (22-30); Chloride 108 mmol/L (98-107); Estimated Glomerular Filt Rate 39; Glucose 85 mg/dL (65-110); Phosphorus 3.6 mg/dL (2.5-4.5); Potassium 3.2 mmol/L (3.4-5.0); Sodium 139 mmol/L (137-145)
[2024-06-29 13:57] LABS: Creatinine Urine 70.9 mg/dL; Total Protein Urine Random 186 mg/dL; Ur Ttl Prot Creatinine Ratio 2.62 mg/mg (0-0.20)
== END 2024-06-29 11:34 | disposition home or self-care (01) ==
LOC: ANHLAB 11:37
PROVIDERS: PCP Emergency Medicine; Visit Provider Internal Medicine Nephrology
DX: E11.22 Type 2 diabetes mellitus with diabetic chronic kidney disease (principal); I12.9 Hypertensive chronic kidney disease with stage 1 through stage 4 chronic kidney disease, or unspecified chronic kidney disease; N18.31 Chronic kidney disease, stage 3a
CPT/HCPCS: 36415; 80069; 82570; 84156

== ENCOUNTER 2024-10-21 07:37 | Outpatient (CLI) | payer MEDICARE, SELFPAY ==
--- OUTSIDE RECORDS SUMMARY | 2024-10-21 07:39 | XMS_ITS | Encounter Summary ---
Author Organization [facility] Address [facility] [place] [address] Care Team Providers Care Magazine Repairer Name Role Phone Nargis Ivy MD Primary Care Provider Unavailable José Miguel Mccrary MD Primary Care Provider [phone] Anjel Marshall MD Unavailable [phone] Encounter Details Date Type Department Care Team (Late st Contact Info) Description 06/18/2016 Abstract [facility] AT [address] [phone] Keila Wells MA Social History Tobacco Use Types Packs/Day Years Used Date Smoking Tobacco: Heavy Smoker Cigarettes 1.5 60 Smokeless Tobacco: Never Alcohol Use Standard Drinks/Week Comments Yes 0 (1 standard drink = 0.6 oz pur e alcohol) Sex and Gender Information Value Date Recorded Sex Assigned at Male 08/04/2024 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 [address] [phone] documented as of this encounter Procedures Procedure Name Priority Date/Time Associated Diagnosis Comments CBC (OUTSIDE LAB) Routine 04/27/2016 BASIC METABOLIC PANEL Routine 04/27/2016 documented in this encounter Results * BASIC METABOLIC PANEL (04/27/2016) SODIUM S/P/B 140 POTASSIUM S/P/B 4.4 CO2 26 CHLORIDE S/P/B 102 GLUCOSE 148 CALCIUM S/P/B 9.1 BUN 18 CREATININE S/P/B 1.1 EGFR NON-AFR. AMER. 71 04/27/2016 us Doc [facility] Final Result * CBC (OUTSIDE LAB) (04/27/2016) WBC 8.2 HGB 15.1 HCT 45 PLT 244 04/27/2016 us Doc [facility] Abstract LAB-OUTSIDE/ABSTRACTED Edite d Result - Final documented in this encounter Visit Diagnoses Not on filedocumented in this encounter Care Teams Magazine Repairer Relationship Specialty Start Date End Date Nargis Ivy MD PCP - General 05/14/16 12/29/16 José Miguel Mccrary MD [address] [facility] [address] [place] [address] PCP - General 12/30/16 Anjel Marshall MD Three [facility]. [address] [place] [address] Townsend Cattle Sorter CARDIOVASCULAR DISEASE 12/11/15 documented as of this encounter
--- OUTSIDE RECORDS SUMMARY | 2024-10-21 07:39 | XMS_ITS ---
Author Organization [facility] Address [address] [place] [address] Care Team Providers Care Door Repairer Bus Name Role Phone José Miguel Mccrary MD Primary Care Provide r Anjel Marshall MD Unavailable [phone] Mason Potter MD Unavailable [phone] Jamarcus Barreto MD Unavailable [phone] Shabbir Casey MD Unavailable Active Problems Problem Noted Date Diagnosed Date Lung nodules 06/06/2024 Atherosclerotic PVD with intermittent claudicati on 05/25/2024 Acute renal failure, unspecified acute renal dl lure type 11/15/2023 Hepatocellular carcinoma 09/07/2022 Type 2 diabetes mellitus without complications 1 08/20/2021 Mass of right lobe of liver 03/26/2022 Abdominal aortic aneurysm (AAA) without rupture 05/02/2021 Assessment & Plan (11/05/2021 3:33 PM CDT): Patient denies any abdominal pain or back pain. CT a done on 10/29/2021 measures abdominal aortic aneurysm at 3.0 cm. Plan: To return in [address] a for monitoring of his AAA. Assessment & Plan (05/02/2021 10:20 AM CDT): Impression: Patient reports he has had a history of abdominal aortic aneurysm repair 5 or 6 years ago at an outside facility. He has not been seen since the procedure. Plan: Patient to follow-up in 6 months for re-evaluation with CTA of aorta with runoff. History of aortic valve replacement 11/14/2018 SBE (subacute bacterial endocarditis) prophylaxi s candidate 11/14/2018 Hyperlipidemia 11/10/2018 Assessment & Plan (05/08/2022 11:37 AM CDT): Impression: Chronic hyperlipidemia, controlled with Zetia and Tricor. Plan: Continue hyperlipidemia therapy as per primary care provider. Assessment & Plan (05/02/2021 10:26 AM CDT): Impression: Chronic hyperlipidemia, on ezetimibe and fenofibrate. Last lipid panel was done in 2019 which showed his cholesterol was elevated. Plan: Recommend continued monitor as per primary care provider. Continue medication therapy as per primary care provider. Atherosclerosis of nonbiolog ical bypass graft of left lower extremity with intermittent claudication 01/22/2017 Assessment & Plan (11/05/2021 3:38 PM CDT): Patient is status right SFA stent 2015 and a left fem to tib bypass stenting. Dopplers and ABIs today show graft is open. No complaints at this time of claudication pain. Plan: follow-up in 6 months with Dopplers for routine monitoring. Assessment & Plan (11/22/2019 9:45 AM CDT): Bypass graft is patent with normal perfusion of the left foot. Patient asymptomatic continue risk factor modification follow-up 6 Aortic stenosis 12/09/2016 Diabetes mellitus 12/09/2016 Assessment & Plan (11/05/2021 3:32 PM CDT): Patient diabetic which is controlled with metformin and insulin. Plan: Continue medications as per PCP. Assessment & Plan (01/28/2021 5:41 PM CDT): Diabetes control. Continue metformin and diet. Assessment & Plan (11/22/2019 9:46 AM CDT): Patient states glucose levels are stable. Continue metformin and regimen per primary care physician for Assessment & Plan (05/18/2019 9:27 AM ROUTE DELIVERY CLERK): Stable glucose control with use medication. Plan: Further management as PCP. Tobacco abuse 12/09/2016 Assessment & Plan (05/08/2022 11:38 AM CDT): Impression: Patient is a current everyday smoker, smoking approximately 2 packs daily. Plan: Discussed with the patient greater than 3 minutes about the importance of smoking cessation and its health benefits to the cardiovascular health. Patient is currently not interested in quitting at this time. Assessment & Plan (11/05/2021 3:52 PM CDT): Discussed with patient the need to quit smoking which patient states that he has been smoking this long and he believes he does not have that many years left to live and does not want to quit. Assessment & Plan (05/02/2021 10:21 AM CDT): Impression: Patient continues to smoke 2 packs a day. Plan: Discussed with the patient greater than 3 minute about the importance of smoking cessation as it relates to health benefits as well as it relates to his arterial occlusive disease and graft. Patient has no desire to quit at this time. Assessment & Plan (05/18/2019 9:27 AM ROUTE DELIVERY CLERK): Educated the patient on the importance of smoking cessation as it relates to health benefits. Plan: Further management as per primary care provider Atherosclerosis of chickaloon ar monserrat of both lower extremities with intermittent claudication 09/18/2016 Assessment & Plan (08/10/2024 9:02 AM ROUTE DELIVERY CLERK): No symptoms of claudication or rest pain. Current duplex to the right lower extremity for new baseline status post angiogram with intervention shows a patent right SFA and popliteal stent. Continue Plavix and statin therapy. Follow up in 6 months for routine surveillance with lower extremity arterial duplex and ABIs. We will also refer to [employer] for pneumatic compression pumps to help with his edema. He has had issues with edema to both lower extremities left worse than the right with discomfort and pain associated from the fluid accumulation in his being re- evaluated today after he has been following a trial of daily use compression, elevation and regular exercise. He continues to have issues with edema to both lower extremities left worse than the right. He was trialed on an E 0651 device and did not receive satisfactory outcomes. Due to the patient's significant symptoms and unique characteristics of his discomfort and pain from his edema he will need the advanced E 0652 with manual programability and appropriate garments to improve the overall chronic swelling management. Measurements of the left lower extremity 29.5 cm at the left ankle 13.5 cm of left calf. The right ankle is 25 cm in the right calf is 32.5 cm. Assessment & Plan (05/26/2024 9:47 AM ROUTE DELIVERY CLERK): Follow up exercise study does reveal a significant drop to the right lower extremity at [address] minute[address] Discussed results with Dr. Potter in the patient as well. We will have the patient scheduled for an angiogram of the right lower extremity. Discussed procedure with the patient along with its potential risks. Answered all questions to his satisfaction. He is agreeable and wishes to proceed. Assessment & Plan (05/12/2024 12:42 PM CDT): Multiple interventions bilaterally. Duplex shows a patent left fem-pop and right common iliac and SFA stents. Continues to have limiting claudication symptoms to both lower extremities. Current duplex shows bypasses and stents are patent with normal ABIs will order a exercise test for continued issues with limiting claudication. Follow-up in the next 1-2 weeks Assessment & Plan (05/07/2023 2:19 PM CDT): Non progressive non limiting claudication to bilateral lower extremities. Lower extremities are warm well perfused. Recent duplex shows a patent right SFA stent and patent left fem-pop bypass graft. Plan: Due to his circumstances with trying to take care of his and transportation, Follow-up in 1 year with a lower extremity arterial duplex. Assessment & Plan (05/08/2022 11:33 AM CDT): Impression: Stable non disabling claudication to bilateral lower extremities. Left femoral tibial bypass graft and stent placement to the right lower extremity are patent seen on arterial duplex. Plan: Continue ongoing risk factor modifications. Patient to follow-up in 1 year for re-evaluation with repeat lower extremity arterial duplex. Assessment & Plan (05/02/2021 10:18 AM CDT): Impression: Patient is status post right SFA stent in 2016 and left femoral tibial bypass graft with insight to saphenous vein in 2017. Patient has stable non limiting claudication to bilateral lower extremities. Bypass graft to left lower extremity is patent as well as stent to right SFA as seen on arterial duplex. Plan: Patient to continue ongoing risk factor modifications. Patient to follow- up in 6 months for re-evaluation with arterial duplex. Assessment & Plan (01/28/2021 5:41 PM CDT): Patient has undergone staged bilateral lower extremity endovascular interventions. His claudication symptoms have resolved completely. He is pleased with the result and has no complaints. Continue anti-platelet therapy and follow-up in 3 months for duplex. Assessment & Plan (06/17/2020 3:22 PM ROUTE DELIVERY CLERK): Impression: Stable nondisabling claudication both lower extremities. Lower extremity arterial duplex surveillance revealed stable lower extremity arterial occlusive disease with no progressive stenosis. Plan: Recommend ongoing risk factor modifications and follow-up in 6 months for re-evaluation and repeat lower extremity arterial duplex surveillance. Assessment & Plan (11/22/2019 9:45 AM CDT): Right SFA stent is patent with normal perfusion to the right foot. Patient asymptomatic Continue risk factor modification follow-up 6 months Assessment & Plan (05/18/2019 9:26 AM ROUTE DELIVERY CLERK): Patient continues to do well status post left femoral tibial bypass graft in 2017, and right SFA stenting. Plan: Follow-up in 6 months for re-evaluation with bilateral lower extremity arterial duplex Assessment & Plan (11/14/2018 3:58 PM CDT): Impression: Patient continues do well status post left femoral to posterior tib bypass and PIPE FITTER SOFT COPPER stenting of his right SFA. He denies any worsening claudication. No surgical intervention currently needed. Plan: Highly recommended smoking cessation. Patient follow-up in 6 months for re-evaluation and repeat lower extremity arterial duplex surveillance. Chronic laryngitis 08/03/2016 Laryngopharyngeal reflux 08/03/2016 Benign essential HTN 05/15/2016 Assessment & Plan (05/08/2022 11:35 AM CDT): Impression: Chronic stable hypertension, controlled medications. Blood pressure stable. Plan: Continue blood pressure management as per primary care provider. Assessment & Plan (05/02/2021 10:22 AM CDT): Impression: Chronic stable hypertension. Patient's blood pressure is elevated this office visit. Patient reports compliance with antihypertensive medication. Plan: Recommend patient to monitor blood pressures at home and notify primary care provider for elevated blood pressure for further management. Assessment & Plan (01/28/2021 5:41 PM CDT): Hypertension controlled. Continue medical therapy Edema 05/15/2016 Preoperative clearance 05/15/2016 PVD (peripheral vascular disease) 05/15/2016 Assessment & Plan (06/29/2024 12:00 PM ROUTE DELIVERY CLERK): Status post balloon angioplasty to the right popliteal and right SFA arteries. Continues to do well having some reperfusion edema otherwise most symptoms are resolving. Plan: Follow-up in 1 month with a lower extremity arterial duplex continue aspirin Plavix and statin therapy Bilateral carotid artery stenosis 04/30/2016 Assessment & Plan (05/12/2024 12:40 PM CDT): Bilateral patent ICAs status post endarterectomies. Continue aspirin, Plavix, and statin therapy. Follow-up for annual surveillance with a carotid duplex Assessment & Plan (05/07/2023 2:20 PM CDT): Bilateral carotid arteries are patent with less than 50% stenosis normal velocities. Continues to be asymptomatic. Plan: Follow-up in 1 year with a carotid duplex. Assessment & Plan (05/08/2022 11:35 AM CDT): Impression: Patient is status post bilateral carotid endarterectomy. He remains asymptomatic. Bilateral carotid arteries are patent as seen on carotid duplex. Plan: Continue ongoing risk factor modifications. Patient to follow-up in 1 year for re-evaluation with repeat carotid duplex. Assessment & Plan (06/17/2020 3:23 PM ROUTE DELIVERY CLERK): Impression: Patient recovering status post bilateral carotid endarterectomy is. He has had no neurological deficits in the interim and his carotid duplex surveillance revealed stable occlusive disease with no progressive stenosis. Plan: Recommend ongoing risk factor modifications and follow-up in 6 months for re-evaluation and repeat carotid duplex surveillance. Assessment & Plan (05/18/2019 9:26 AM ROUTE DELIVERY CLERK): Patient doing well status post bilateral carotid artery endarterectomy in the past. Continue continues to be asymptomatic. Plan: Follow-up in 1 year for re-evaluation with bilateral carotid artery duplex Assessment & Plan (11/14/2018 3:59 PM CDT): Impression: Patient continues do well status post bilateral carotid endarterectomies. He remains asymptomatic. Plan: Highly recommended smoking cessation. Patient follow-up in 6 months for re-evaluation and repeat carotid duplex surveillance. Atherosclerosis with claudication of extremity 0 04/07/2016 Current Treatment and Therapy Plans No current plan information found. Past Treatment and Therapy Plans No past plan information found. Lifetime Dose Tracking * Chemical Lifetime Dose Automatic Entry Manual Entr y Air kerma at the reference point (Ka,r) 1,844 mGy 0 mGy 1,844 mGy DLP 6,390 mGycm 6,390 mGycm 0 mGycm
--- OUTSIDE RECORDS SUMMARY | 2024-10-21 07:39 | XMS_ITS | Encounter Summary ---
Author Organization [facility] Address [facility] [place] [address] Care Team Providers Care Horse Farm Manager Name Role Phone José Miguel Mccrary MD Primary Care Provider [phone] Anjel Marshall MD Unavailable [phone] Encounter Details Date Type Department Care Team (Late Contact Info) Description 06/11/2017 Abstract [facility], [address] [address] Keila Wells MA Social History Tobacco Use Types Packs/Day Years Used Date Smoking Tobacco: Heavy Smoker Cigarettes 1.5 60 Smokeless Tobacco: Never Alcohol Use Standard Drinks/Week Comments Yes 0 (1 standard drink = 0.6 oz pur e alcohol) Sex and Gender Information Value Date Recorded Sex Assigned at Male 08/04/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 [address] [phone] documented as of this encounter Procedures Procedure Name Priority Date/Time Associated Diagnosis Comments LIPID PANEL Routine 09/17/2017 CK (CPK) Routine 09/17/2017 ALT/SGPT Routine 09/17/2017 BASIC METABOLIC PANEL Routine 11/20/2016 CBC (OUTSIDE LAB) Routine 11/19/2016 documented in this encounter Results * ALT/SGPT (09/17/2017) ALT 13 09/17/2017 us Doc [facility] Edited Resul t - Final * CK (CPK) (09/17/2017) CPK 96 09/17/2017 us Doc [facility] LABOR[facility] Edited Resul t - Final * LIPID PANEL (09/17/2017) CHOLESTEROL 215 HDL 44 TRIGLYCERIDES 314 NON HDL CHOLESTEROL 171 LDL (CALCULATED) 126 09/17/2017 us Doc [facility] LABORATORY Edited Resul t - Final * BASIC METABOLIC PANEL (11/20/2016) SODIUM S/P/B 139 POTASSIUM S/P/B 4.3 CO2 29 CHLORIDE S/P/B 99 GLUCOSE 180 mg/dL CALCIUM S/P/B 9.0 BUN 15 CREATININE S/P/B 0.9 0.7 - 1.3 EGFR NON-AFR. AMER. 89 <=90 11/20/2016 us Doc [facility] LABORAT[facility] Final Result * CBC (OUTSIDE LAB) (11/19/2016) WBC 10.5 HGB 12.8 HCT 38.6 PLT 165 11/19/2016 us Doc [facility] Abstract LAB-OUTSIDE/ABSTRACTED Final Result documented in this encounter Visit Diagnoses Not on filedocumented in this encounter Care Teams Horse Farm Manager Relationship Specialty Start Date End Date José Miguel Mccrary MD [address] [place] [address] PCP - General 12/30/16 Anjel Marshall MD Three [facility]. [facility] [address] [place] [address] [place] Final Cigar And Box Examiner CARDIOVASCULAR DISEASE 12/11/15 documented as of this encounter
--- OUTSIDE RECORDS SUMMARY | 2024-10-21 07:39 | XMS_ITS | Clinical Summary ---
Author Organization [facility] Office Center Address [address] [place] [address] Care Team Providers Care Senior Qa Automation Engineer Name Role Phone José Miguel Mccrary MD Primary Care Provide r Anjel Marshall MD Unavailable [phone] Mason Potter MD Unavailable [phone] Jamarcus Barreto MD Unavailable [phone] Shbabir Casey MD Unavailable Allergies Active Allergy Reactions Criticality Noted Date Comments Lisinopril Swelling Medium 09/02/2022 Tongue swelling Penicillins Other (See comments) Low 05/07/2016 Pt states medication is ineffective unable to use Medications multivitamin tablet Take 1 tablet by mouth daily Active ketoconazole (NIZORAL) 2 % cream by intratympanic route daily Active fenofibrate nanocrystallized (TRICOR) 145 mg tablet Take 1 tablet (145 mg total) by mouth daily 2 03/13/20 19 Active glimepiride (AMARYL) 4 mg tablet Take 1 tablet (4 mg total) by mouth daily before breakfast 11/17/19 21 Active atorvastatin (LIPITOR) 80 mg tablet Take 1 tablet (80 mg total) by mouth daily 11/19/19 21 Active ezetimibe (ZETIA) 10 mg tablet Take 1 tablet (10 mg total) by mouth daily 03/10/20 21 Active albuterol HFA (PROVENTIL HFA,VENTOLIN HFA,PROAIR HFA) 90 mcg/actuation inhaler INHALE 1 TO 2 PUFFS BY MOUTH EVERY 4 TO 6 HOURS NEEDED FOR SHORTNESS OF BREATH FOR WHEEZING 04/20/20 23 Active tamsulosin (FLOMAX) 0.4 mg extended release capsuleIndications: Urolithiasis Take 1 capsule (0.4 mg total) by mouth daily with dinner 30 capsule 11/17/19 24 Active finasteride (PROSCAR) 5 mg tablet Take 1 tablet (5 mg total) by mouth daily 30 tablet 11/17/19 24 Active lisinopriL (PRINIVIL,ZESTRIL) 10 mg tablet 10/26/19 24 Active clopidogreL (PLAVIX) 75 mg tablet Take 1 tablet by mouth once daily 90 tablet 3 05/29/20 24 Active amLODIPine (NORVASC) 10 mg tablet Take 1 tablet (10 mg total) by mouth daily Active clobetasoL (TEMOVATE) 0.05 % cream APPLY CREAM TOPICALLY TWICE DAILY NEEDED. LIMIT USE TO 2 CONSECUTIVE WEEKS PER MONTH 06/21/20 24 Active Active Problems Problem Noted Date Diagnosed Date [...] fenofibrate. Last lipid panel was done in 2018 which showed his cholesterol was elevated. Plan: [...] for Assessment & Plan (05/18/2019 9:27 AM MEN'S GOLF COACH): Stable glucose control with use medication. Plan: [...] time. Assessment & Plan (05/18/2019 9:27 AM MEN'S GOLF COACH): Educated the patient on the importance of smoking cessation as it relates to health benefits. Plan: Further management as per primary care provider Atherosclerosis of [place] ar monserrat of both lower extremities with intermittent claudication 09/18/2016 Assessment & Plan (08/10/2024 9:02 AM MEN'S GOLF COACH): No symptoms of claudication or rest pain. Current duplex to the right lower extremity for new baseline status post angiogram with intervention shows a patent right SFA and popliteal stent. Continue Plavix and statin therapy. Follow up in 6 months for routine surveillance with lower extremity arterial duplex and ABIs. We will also refer to [facility] for pneumatic compression pumps to help with [...] cm. Assessment & Plan (05/26/2024 9:47 AM MEN'S GOLF COACH): Follow up exercise study does reveal a [...] duplex. Assessment & Plan (06/17/2020 3:22 PM MEN'S GOLF COACH): Impression: Stable nondisabling claudication both lower extremities. [...] months Assessment & Plan (05/18/2019 9:26 AM MEN'S GOLF COACH): Patient continues to do well status post left femoral tibial bypass graft in 2016, and right SFA stenting. Plan: Follow-up in 6 months for re-evaluation with bilateral lower extremity arterial duplex Assessment & Plan (11/14/2018 3:58 PM CDT): Impression: Patient continues do well status post left femoral to posterior tib bypass and BALL POINTS INSPECTOR stenting of his right SFA. He denies [...] 05/15/2016 Assessment & Plan (06/29/2024 12:00 PM MEN'S GOLF COACH): Status post balloon angioplasty to the right [...] duplex. Assessment & Plan (06/17/2020 3:23 PM MEN'S GOLF COACH): Impression: Patient recovering status post bilateral carotid endarterectomy is. He has had no neurological deficits in the interim and his carotid duplex surveillance revealed stable occlusive disease with no progressive stenosis. Plan: Recommend ongoing risk factor modifications and follow-up in 6 months for re-evaluation and repeat carotid duplex surveillance. Assessment & Plan (05/18/2019 9:26 AM MEN'S GOLF COACH): Patient doing well status post bilateral carotid [...] Atherosclerosis with claudication of extremity 0 04/07/2016 Encounters Date Type Department Care Team Description 08/22/2024 1:00 PM MEN'S GOLF COACH Office Visit [facility] Floor [address] [place] [address] Ryanne Copeland MD Hepatocellular carcinoma (HCC) (Primary Dx); Declined smoking cessation 08/22/2024 12:00 PM MEN'S GOLF COACH Lab [facility] Lab [facility] Floor [address] [place] [address] Hepatocellular carcinoma (HCC) 08/22/2024 11:45 AM MEN'S GOLF COACH Lab [facility] [address] [facility] Floor [address] [place] [address] Hepatocellular carcinoma (HCC) 08/17/2024 8:29 AM MEN'S GOLF COACH - 08/17/2024 11:59 PM MEN'S GOLF COACH Hospital Encounter [facility] [address] [place] [id number] Ryanne Copeland MD Hepatocellular carcinoma (HCC) Discharge Disposition: Discharge to home or self care 08/15/2024 Telephone [facility] Floor [address] [place] [address] Sangeetha Dan RN 08/10/2024 Documentation [facility] [address] [place] [address] [place] [phone] Ana Rojo MA 08/02/2024 10:15 AM MEN'S GOLF COACH Office Visit [facility] [address] [place] [address] [address] [place] [address] Madie Canales NP Type 2 diabetes mellitus without complication, unspecified whether predatory animal exterminator insulin use (HCC) (Primary Dx); PVD (peripheral vascular disease); Mixed hyperlipidemia; Benign essential HTN; Atherosclerosis of [place] artery of both lower extremities with intermittent claudication 08/02/2024 9:01 AM MEN'S GOLF COACH - 08/02/2024 11:59 PM MEN'S GOLF COACH [facility] [address] [place] [address] PVD (peripheral vascular disease) Discharge Disposition: Discharge to home or self care 08/02/2024 9:01 AM MEN'S GOLF COACH - 08/02/2024 11:59 PM MEN'S GOLF COACH Hospital [facility] [address] [place] [phone] PVD (peripheral vascular disease) Discharge Disposition: Discharge to home or self care 08/02/2024 Orders Only [facility] Vein Surgery [address] [place] [address] [place] [phone] Mason Potter MD Aftercare following surgery of the circulatory system (Primary Dx) from Last 3 Months Immunizations Immunization Administration Dates Next Due Influenza LAIV (Nasal) 05/06/2020 Influenza, Quadrivalent, Hig h Dose, Preservative Free, Intrr 05/06/2020 Influenza, Quadrivalent, Split, Intramuscular Influenza, Trivalent, High D ose, Split, Preservative Free, Intramuscular 05/31/2019,05/18/2018 Pfizer SARS-CoV-2 Monovalent Vaccination (12+ Yrs) PURPLE 10/02/2020,09/05/2020 Pneumococcal Conjugate PCV 13 05/18/2018 Pneumococcal Polysaccharide PPV23 05/31/2019 Surgical History Surgery Date Site/Laterality Comments CARDIAC CATHETERIZATION 2019 SKIN CANCER EXCISION x 3 on face, last procedure 11/2020 SINUS SURGERY at age 56 TONSILLECTOMY age 56 w/sinus surgery CAROTID ENDARTERECTOMY 08/17/2016 Right VASCULAR SURGERY left leg procedures x 2, right leg x 1 w/stent COLONOSCOPY about 2016 CARDIAC VALVE REPLACEMENT aortic valve replacement 2019 EYE SURGERY cataracts removed bilat. early 2021 ILIAC ARTERY STENT 01/09/2021 Right RT TOMY STENT, LT EIA STENT CAROTID ENDARTERECTOMY 06/25/2016 Left ANGIOPLASTY 06/12/2024 Right Aortogram, selective LT angiogram. BA RT POP, BA RT SFA. Medical History Medical History Date Comments Hypertension Hypertension Peripheral vascular disease [place] pheral vascular disease Obesity Type 2 diabetes mellitus (HCC) Poor historian pt unsure of med ical history, current physicians; states he has a lung and kidney Dr, doesn't know names Wears glasses reading glasses History of gout History of skin cancer x 3 episo ron to face Sleep apnea no CPAP Carotid artery stenosis bilatera l SEE SURGERY Depression no longer takes meds TONTO APACHE (hard of hearing) TONTO APACHE GERD (gastroesophageal reflux disease) MANAGED WITH MEDS Aortic stenosis aortic valve rep lacement Chronic obstructive pulmonar y disease (HCC) COPD, CAN'T USE INHALERS- CA USES HEADACHE Wound of buttock TO LEFT SIDE, U SING SILVADENE CREAM Chronic back pain from a fall 20 19 Atherosclerosis Chronic laryngitis Teeth missing SOB (shortness of breath) on exertion Family History Medical History Relation Name Comments Prostate cancer Father Other Mother Pacemaker; Relation Name Status Comments Father Mother Alive Social History Tobacco Use Types Packs/Day Years Used Date Smoking Tobacco: Every Day Cigarettes 2 70.3 Started: 1953 Passive Smoke Exposure: Current Smokeless Tobacco: Never Tobacco Cessation:Ready to Q uit: Not Asked; Counseling Given: Not Answered Comments:Pt reports he started about age 10, smokes 2 packs per day Alcohol Use Standard Drinks/Week Comments Yes 0 (1 standard drink = 0.6 oz pur e alcohol) AUDIT-C Answer Date Recorded Q1: How often do you have a drink containing alcohol? 4 or more times a week 06/22/2024 Q2: How many drinks containi ng alcohol do you have on a typical day when you are drinking? 3 or 4 Q3: How often do you have si x or more drinks on one occasion? Never 06/22/2024 Hunger Vital Sign Answer Date Recorded Within the past 12 months, y ou worried that your food would run out before you got the money to buy more. Never true 06/22/20 24 Within the past 12 months, t he food you bought just didn't last and you didn't have money to get more. Never true 06/22/2024 Personal Safety Answer Date Recorded Have you ever been in or are you currently in a harmful physical or emotional relationship or is someone making you feel afraid or unsafe? Denies 06/22/2024 Sex and Gender Information Value Date Recorded Sex Assigned at Not on file 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:22 AM MEN'S GOLF COACH Gender Identity Not on file Sexual Orientation Not on file Obstetrics History Last Filed Vital Signs Vital Sign Reading Time Taken Comments Blood Pressure 154/67 08/22/2024 12:26 PM MEN'S GOLF COACH Pulse 95 08/22/2024 12:26 PM MEN'S GOLF COACH Temperature 36.2 C (97.2 F) 08/22/2024 12:26 PM MEN'S GOLF COACH Respiratory Rate 18 08/22/2024 12:26 PM MEN'S GOLF COACH Oxygen Saturation 97% 08/22/2024 12:26 PM MEN'S GOLF COACH Inhaled Oxygen Concentration - - Weight 86.6 kg (191 lb) 08/22/2024 12:26 PM MEN'S GOLF COACH Height 176.4 cm (5' 9.45 ) 08/22/2024 12:[address] Body Mass Index 27.84 08/22/2024 12:26 PM MEN'S GOLF COACH Plan of Treatment Health Maintenance Due Date Last Done Comments Albumin Creatinine Ratio, Urine 1946 Depression Screening 1945 Hepatitis C Screening 1946 Dilated Eye Exam 1946 Foot Exam 1946 DTaP/Tdap/Td Vaccine (1 - Tdap) 1957 Hepatitis B Screening 1964 Lung Cancer Screening 1996 Zoster Vaccine (1 of 2) 1996 Well Visit 65+ 2011 Lipid Panel 04/07/2023 04/07/2022, 07/13, 04/04/2021, Additional history exists Covid-19 Vaccine (3 - 2023-2 5 season) 2024 10/02/2020, 09/05/2020 Hemoglobin A1C 05/18/2024 11/16/2023, 05/0 03/2017, 06/16/2016 Influenza Vaccine (Season Ended) 2025 05/06/2020, 05/06/2020, 05/31/2019, Additional history exists Fall Risk Assessment 06/22/2025 06/22/2024 eGFR 08/22/2025 08/22/2024, 08/2023, 05/30/2024, Additional history exists Pneumococcal vaccine 65+ Completed 05/31/2019, 01/2018 Abdominal Aortic Aneurysm (A AA) Screen Completed 08/17/2024, 05/11/2024, 02/29/2024, Additional history exists Medical Devices Implanted Type Area Program Services Planner Device Identifier Shelf Expiration Date Model / Serial / Lot [employer] Zakiya [id number] Ml 6mm 80mm 130cm Drug Elute Delivery System Stent Vascular - [id number] Implanted:Qty: 1 on 01/01/2021 by [facility] [employer] Zakiya 07/30/2022 [id number] / / [id number] Bard Peripheral Vascular [id number] Safe Performaxx 8mm 6fr 60mm 80cm Delivery System - [id number] Implanted:Qty: 1 on 01/01/2021 by Mason Potter MD at [facility] [employer] [id number] 02/08/2023 [id number] / / [id number] [employer] [id number] Lifestream 8mm 26mm 80cm Balloon Expandable Low Profile Cover - [id number] Implanted:Qty: 1 on 01/09/2021 by Mason Potter MD at [facility] [employer] 03/11/2023 [id number] / / [id number] [employer] V[employer] [id number] Perclose 6fr Suture Mediate Knot Push Vascular Device Closure - [id number] Implanted:Qty: 1 on 01/09/2021 by Mason [facility] MD at [facility] [employer] 10/09/2022 [id number] / / [id number] Bard [employer]ipheral [employer] [id number] E-[id number] Safe Performaxx 8mm 6fr 80mm 80cm Delivery System - [id number] Implanted:Qty: 1 on 01/09/2021 by Mason Potter MD at [facility] [employer] 04/29/2021 [id number] / / [id number] [employer] V[employer] System Closure Repair Femoral Artery Suture Mediated Perclose Prostyle 80042-22 - [id number] Implanted:Qty: 1 on 06/12/2024 by Mason Potter MD at [facility] [employer] 02/08/2026 [id number] / / [id number] Procedures Procedure Name Priority Date/Time Associated Diagnosis Comments EGFR Routine 08/22/2024 11:48 AM MEN'S GOLF COACH Hepatocellular carcinoma (HCC) DIFFERENTIAL AUTO Routine 08/22/2024 11: 48 AM MEN'S GOLF COACH Hepatocellular carcinoma (HCC) CBC WITH AUTO DIFFERENTIAL Routine 08/22/2024 11:48 AM MEN'S GOLF COACH Hepatocellular carcinoma (HCC) COMPREHENSIVE METABOLIC PANEL Routine 08/22/2024 11:48 AM MEN'S GOLF COACH Hepatocellular carcinoma (HCC) [id number], TUMOR MARKER Routine 08/22/2024 11:48 AM MEN'S GOLF COACH Hepatocellular carcinoma (HCC) CT CHEST ABDOMEN PELVIS W CONTRAST Schedule Routine, Read Routine (OP Routine) 08/17/2024 9:41 AM MEN'S GOLF COACH Hepatocellular carcinoma (HCC) POCT CREATININE - DEVICE Routine 08/17/2024 8:57 AM MEN'S GOLF COACH US SHAHLA Schedule Routine, Read Routine (OP Routine) 08/02/2024 10:26 AM MEN'S GOLF COACH PVD (peripheral vascular disease) US ARTERIAL DUPLEX LOWER EXTREMITY RIGHT LIMITED Schedule Routine, Read Routine (OP Routine) 08/02/2024 10:24 AM MEN'S GOLF COACH PVD (peripheral vascular disease) HEMOGLOBIN A1C STAT 11/16/2023 3:24 AM CDT from Last 3 Months or Most Recently Relevant to Health Maintenance Results * (ABNORMAL) eGFR (08/22/2024 11:48 AM MEN'S GOLF COACH) eGFR 36(L) >=60 mL/min/1. 73 m2 Comment: Interpretive Data Reference Interval Normal >/= 90 mL/min/1.73m2 Mildly decreased* 60 - 89 mL/min/1.73m2 Mildly to moderately decreased 45 - 59 mL/min/1.73m2 Moderately to severely decreased 30 - 44 mL/min/1.73m2 Severely decreased 15 - 29 mL/min/1.73m2 Kidney Failure < 15 mL/min/1.73m2 *Relative to young adult level Estimated glomerular filtration rate is determined by the 2020 CKD-EPI equation recommended by the National Kidney Foundation (A Unifying Approach to GFR Estimation: Recommendations of the NKF-ASK Task Force on Reassessing the Inclusion of Race in Diagnosing Kidney Disease, JASN 2020). The CKD-EPI equation should not be used for patients with unstable renal function and has not been validated in children and those over 70. Current interpretive data was last reviewed 2021. Blood 08/22/2024 11:4 8 AM MEN'S GOLF COACH 08/22/2024 11:52 AM MEN'S GOLF COACH [facility] Remigio Copeland MD LAB BLOOD ORDERABLES Neha ruiz Result [facility] [place] [address] * Differential, auto (08/22/2024 11:48 AM MEN'S GOLF COACH) Neutrophil abs 5.6 1.5 - 6.5 K/cumm Comment:Testing performed by : [facility], [address] [place] [address] Lymphocyte abs 1.0 0.8 - 3.3 K/cumm [facility] Comment:Testing performed by : [facility], [address] [place], [place] [phone] Monocyte abs 0.8 0.2 - 0.8 K/cumm [facility] Comment:Testing performed by : [facility], [address] [place], [place] [phone] Eosinophil abs 0.4 0.0 - 0.5 K/cumm [facility] Comment:Testing performed by : [facility], [address] [place], [place] [phone] Basophil abs 0.1 0.0 - 0.1 K/cumm [facility] Comment:Testing performed by : [facility], [address] [place] [phone] Neutrophil pct 71.5 % [facility] Comment: Interpretive Data Percent cell count reference ranges are not reported, since discordance with absolute values may lead to misinterpretation of CBC data. Current Interpretive Data was last revised on 2017. Testing performed by: [facility], [address] [place] [phone] Lymphocyte pct 12.9 % [facility] Comment: Interpretive Data Percent cell count reference ranges are not reported, since discordance with absolute values may lead to misinterpretation of CBC data. Current Interpretive Data was last revised on 2017. Testing performed by: [facility], [address] [place] [phone] Monocyte pct 9.6 % [facility] Comment: Interpretive Data Percent cell count reference ranges are not reported, since discordance with absolute values may lead to misinterpretation of CBC data. Current Interpretive Data was last revised on 2017. Testing performed by: [facility], [address] [place] [phone] Eosinophil pct 5.2 % [facility] Comment: Interpretive Data Percent cell count reference ranges are not reported, since discordance with absolute values may lead to misinterpretation of CBC data. Current Interpretive Data was last revised on 2017. Testing performed by: [facility], [address] [place] [phone] Basophil pct 0.8 % [facility] Comment: Interpretive Data Percent cell count reference ranges are not reported, since discordance with absolute values may lead to misinterpretation of CBC data. Current Interpretive Data was last revised on 2017. Testing performed by: [facility], [address] [place] [phone] Blood 08/22/2024 11:4 8 AM MEN'S GOLF COACH 08/22/2024 11:50 AM MEN'S GOLF COACH Ryanne Copeland MD LAB BLOOD ORDERABLES Neha ruiz Result [facility] [place] [address] * (ABNORMAL) CBC with auto differential (08/22/2024 11:48 AM MEN'S GOLF COACH) WBC 7.8 3.8 - 9.9 K/cumm Comment:Testing performed by : [facility], [address] [place] [address] Hgb 13.4 13.0 - 17.5 g/dL [facility] Comment:Testing performed by : [facility], [address] [place] [address] Hct 40.0 38.9 - 50.3 % [facility] Comment:Testing performed by : [facility], [address] [place] [address] Plt 230 150 - 400 K/cumm [facility] Comment:Testing performed by : [facility], [address] [place] [address] MPV 8.2 6.8 - 10.4 fL [facility] Comment:Testing performed by : [facility], [address] [place] [address] RBC 4.12(L) 4.30 - 5.80 M/cumm [facility] Comment:Testing performed by : [facility], [address] [place] [address] MCV 97.2(H) 81.3 - 96.4 fL [facility] Comment:Testing performed by : [facility], [address] [place] [address] MCH 32.5 27.1 - 33.3 pg [facility] Comment:Testing performed by : [facility], [address] [place] [address] MCHC 33.4 32.3 - 35.7 g/dL [facility] Comment:Testing performed by : [facility], [address] [place] [address] RDW CV 15.6(H) 11.1 - 14.9 % [facility] Comment:Testing performed by : [facility], [facility] [place] [address] NRBC abs 0.00 0.00 - 0.01 K/cumm [facility] Comment:Testing performed by : [facility], [facility] [place] [address] Blood 08/22/2024 11:4 8 AM MEN'S GOLF COACH 08/22/2024 11:50 AM MEN'S GOLF COACH Ryanne Copeland MD LAB BLOOD ORDERABLES Neha l Result [facility] [place] [address] * [id number], Tumor Marker (08/22/2024 11:48 AM MEN'S GOLF COACH) alpha Fetoprotein 2.3 <=8.3 ng/mL Comment: Interpretive Data The Jessica AFP assay procedure was used. Results from different manufacturers or methods may not be comparable. Serial testing should be performed using the same method. 0-1 month. AFP concentrations may reach or exceed 100,000 ng/mL after depending on gestational age and weight. 1-3 months 50 1000 ng/ml 3-6 months 10 500 ng/ml 6-12 months 3.0 100 ng/ml >1 year 0.0 8.3 ng/ml References Alexis Y. et al. J. Ped Surg 1978;13:155-156 Josias Altman et al. Clin Chem Lab Med 2018;57:783-797 Madhav Grace et al. Clin Chem 2014;1028-5465. Current interpretive data was last revised 2022. Blood 08/22/2024 11:4 8 AM MEN'S GOLF COACH 08/22/2024 12:08 PM MEN'S GOLF COACH us Ryanne Copeland MD LAB BLOOD ORDERABLES Neha l Result [facility] [place] [address] * (ABNORMAL) Comprehensive metabolic panel (08/22/2024 11:48 AM MEN'S GOLF COACH) Sodium 141 135 - 145 mmol/L Potassium, pl 3.9 3.3 - 4.9 mmol/L [facility] Chloride 103 97 - 110 mmol/L [facility] CO2 33(H) 22 - 32 mmol/L [facility] Anion gap 5 2 - 15 mmol/L [facility] BUN 25 6 - 25 mg/dL [facility] Creatinine 1.88(H) 0.80 - 1.30 mg/dL [facility] Glucose 221(H) 70 - 199 mg/dL [facility] Comment: Interpretive Data Fasting glucose >/= 126 mg/dl is diagnostic for diabetes. Fasting is defined as no caloric intake for at least 8 hours. Fasting glucose between 100 mg/dl to 125 mg/dl is diagnostic of prediabetes. In a patient with classic symptoms of hyperglycemia or hyperglycemic crisis, a random glucose >/= 200 mg/dl is diagnostic for diabetes. In the absence of unequivocal hyperglycemia, results should be confirmed by repeat testing. The classification and Diagnosis of Diabetes Diabetes Care 202; 46: S19-S40. Current interpretive data was last revised 2022. Calcium 9.8 8.5 - 10.3 mg/dL [facility] Bilirubin, total 0.5 0.1 - 1.2 mg/dL [facility] Protein, pl 7.0 6.5 - 8.5 g/dL [facility] Albumin 4.1 3.5 - 5.0 g/dL [facility] Alk phos 66 40 - 130 Units/L [facility] ALT 14 7 - 55 Units/L [facility] AST 26 10 - 50 Units/L [facility] Blood 08/22/2024 11:4 8 AM MEN'S GOLF COACH 08/22/2024 11:52 AM MEN'S GOLF COACH us [facility] M Th Dinorah DO LAB BLOOD ORDERABLES Neha l Result [facility] [place] [address] * CT Chest Abdomen Pelvis W Contrast (08/17/2024 9:41 AM MEN'S GOLF COACH) Anatomical Region Laterality Modality Body N/A Computed Tomogra phy 08/17/2024 10:0 6 AM MEN'S GOLF COACH Impressions 08/17/2024 10:22 AM MEN'S GOLF COACH 1. Resolution of the previously noted pulmonary nodule in the anterior basal segment of the right lower lobe and interval development of multiple new nodules within the right lung, the largest of which measures up to 1.8 cm. These are favored to be inflammatory in etiology; however, follow-up of these nodules in 3 months is recommended. 2. Unchanged posttreatment changes in hepatic segments 5/6. No evidence of metastatic disease in abdomen or pelvis. Dictated by: Anjel Michael M.D. The radiology attending physician has personally reviewed this study, and had reviewed and/or edited this written report and agrees with it. Electronically signed by: Adalberto Santo M.D. Narrative 08/17/2024 10:22 AM MEN'S GOLF COACH EXAMINATION: Computed tomography of the chest, abdomen and pelvis with intravenous contrast HISTORY: 79-year-old male with history of hepatocellular carcinoma TECHNIQUE: Transaxial computed tomographic images of the chest, abdomen and pelvis were obtained with intravenous contrast according to the standard protocol after the uneventful administration of 69 mL Opti-Ray 350 intravenous contrast. COMPARISON: 06/05/2024, 02/29/2024 FINDINGS: Chest: No supraclavicular, axillary, mediastinal, or hilar lymphadenopathy. Mild bilateral gynecomastia. Unchanged mild cardiomegaly. Postsurgical changes of median sternotomy and aortic valve replacement. Coronary artery calcifications. Main pulmonary artery and thoracic aorta are normal in caliber. Atherosclerotic calcifications of the thoracic aorta. Interval resolution of nodularity seen in the anterior basal segment of the right lower lobe. Development of a new discoid nodule in the left lateral basal segment of the right lower lobe (series 3 image 106) measuring up to 1.8 cm and a 3 mm nodule in the right upper lobe (series 3 image 68). Mild bibasilar atelectasis. No pulmonary edema, pleural effusion, or pneumothorax. Centrilobular predominant emphysema. Living within the lung bases. Abdomen/Pelvis: Unchanged hyperattenuating area in liver segment 5/6 consistent with post treatment changes. No new hepatic lesions. No intra or extrahepatic bile duct dilatation. The portal, superior mesenteric, and splenic veins are patent. The gallbladder, adrenal glands, spleen, and pancreas are normal. The kidneys enhance symmetrically without hydronephrosis. Nonobstructing right kidney nephrolithiasis is unchanged. Urinary bladder is decompressed mildly thin-walled. Mild prostatomegaly. No intraperitoneal free fluid or air. The bowel is normal in caliber without focal wall thickening or evidence of obstruction. Diverticulosis without diverticulitis. Extensive atherosclerotic calcifications of the abdominal aorta and its branch vessels. Bilateral external iliac stents. Partially visualized distal common femoral artery bypass grafting. No pelvic or abdominal lymphadenopathy. No suspicious osseous lesion. Procedure Note Adalberto Santo MD - 08/17/2024 EXAMINATION: Computed tomography of the chest, abdomen and pelvis with intravenous contrast HISTORY: 79-year-old male with history of hepatocellular carcinoma TECHNIQUE: Transaxial computed tomographic images of the chest, abdomen and pelvis were obtained with intravenous contrast according to the standard protocol after the uneventful administration of 69 mL Opti-Ray 350 intravenous contrast. COMPARISON: 06/05/2024, 02/29/2024 FINDINGS: Chest: No supraclavicular, axillary, mediastinal, or hilar lymphadenopathy. Mild bilateral gynecomastia. Unchanged mild cardiomegaly. Postsurgical changes of median sternotomy and aortic valve replacement. Coronary artery calcifications. Main pulmonary artery and thoracic aorta are normal in caliber. Atherosclerotic calcifications of the thoracic aorta. Interval resolution of nodularity seen in the anterior basal segment of the right lower lobe. Development of a new discoid nodule in the left lateral basal segment of the right lower lobe (series 3 image 106) measuring up to 1.8 cm and a 3 mm nodule in the right upper lobe (series 3 image 68). Mild bibasilar atelectasis. No pulmonary edema, pleural effusion, or pneumothorax. Centrilobular predominant emphysema. Living within the lung bases. Abdomen/Pelvis: Unchanged hyperattenuating area in liver segment 5/6 consistent with post treatment changes. No new hepatic lesions. No intra or extrahepatic bile duct dilatation. The portal, superior mesenteric, and splenic veins are patent. The gallbladder, adrenal glands, spleen, and pancreas are normal. The kidneys enhance symmetrically without hydronephrosis. Nonobstructing right kidney nephrolithiasis is unchanged. Urinary bladder is decompressed mildly thin-walled. Mild prostatomegaly. No intraperitoneal free fluid or air. The bowel is normal in caliber without focal wall thickening or evidence of obstruction. Diverticulosis without diverticulitis. Extensive atherosclerotic calcifications of the abdominal aorta and its branch vessels. Bilateral external iliac stents. Partially visualized distal common femoral artery bypass grafting. No pelvic or abdominal lymphadenopathy. No suspicious osseous lesion. IMPRESSION: 1. Resolution of the previously noted pulmonary nodule in the anterior basal segment of the right lower lobe and interval development of multiple new nodules within the right lung, the largest of which measures up to 1.8 cm. These are favored to be inflammatory in etiology; however, follow-up of these nodules in 3 months is recommended. 2. Unchanged posttreatment changes in hepatic segments 5/6. No evidence of metastatic disease in abdomen or pelvis. Dictated by: Anjel Michael M.D. The radiology attending physician has personally reviewed this study, and had reviewed and/or edited this written report and agrees with it. Electronically signed by: Adalberto Santo M.D. [facility] MD IMG CT PROCEDURES Final R esult * (ABNORMAL) POCT creatinine (08/17/2024 8:57 AM MEN'S GOLF COACH) Creatinine POC 2.0(H) 0.8 - 1.3 mg/dL Blood 08/17/2024 8:57 AM MEN'S GOLF COACH 08/17/2024 8:57 AM MEN'S GOLF COACH us Self Referral LAB POCT ORDERABLES - DEVICE Fin al Result [facility] [place] [address] * US SHAHLA (08/02/2024 10:26 AM MEN'S GOLF COACH) Anatomical Region Laterality Modality Vascular N/A Ultrasound 08/02/2024 Narrative 08/04/2024 11:09 AM MEN'S GOLF COACH Jobyal Job ID: [id number] [employer] Document ID: [id number] Dictated date/time: [id number] LOWER EXTREMITY ARTERIAL DOPPLER STUDY REASON FOR EXAM Peripheral vascular disease. COMMENTS ON THE RIGHT Brachial pressure 191. PT/DP pressure 177/178. SHAHLA 0.93. Digital pressure 180. Waveforms triphasic. COMMENTS ON THE LEFT PT/DP pressure 199/206. SHAHLA is 1. Digital pressure 208. Waveforms triphasic. OVERALL IMPRESSION Normal ABIs and waveforms bilateral lower extremities. Job ID/Internal Job ID: [id number] Mason Potter MD [facility] US PROCEDURES Final Re sult * US Arterial Duplex Lower Extremity Right Limited (08/02/2024 10:24 AM MEN'S GOLF COACH) Anatomical Region Laterality Modality Vascular Right Ultrasound 08/02/2024 Narrative 08/04/2024 11:09 AM MEN'S GOLF COACH Jobyal Job ID: [id number] [employer] Document ID: [id number] Dictated date/time: [id number] RIGHT LOWER EXTREMITY ARTERIAL DUPLEX REASON FOR EXAM SFA stent. COMMENTS ON THE RIGHT Right common femoral and profunda femoral arteries are patent, velocities of 125 and 104 cm/sec. Right superficial femoral and popliteal artery stents are patent, velocities of 124, 118 an 76 cm/sec. OVERALL IMPRESSION Patent right superficial femoral artery and popliteal artery stents. Job ID/Internal Job ID: [id number] Mason Potter MD [facility] US PROCEDURES Final Re sult * (ABNORMAL) Hemoglobin A1c (11/16/2023 3:24 AM CDT) Hgb A1C 8.5(H) 4.0 - 5.6 % Estimated Average Glucose 197 mg/dL [facility] Comment: The ADA recommends reporting an estimated Average Glucose (eAG) with all Hemoglobin A1c results using the equation derived from a study of 507 normal and diabetic adults. Minority populations were underrepresented and children were not included. (Diabetes Care 2020; 43(S1): S66-S76). The eAG is not equivalent to a fasting glucose. Blood 11/16/2023 3:24 AM CDT 11/16/2023 4:26 AM CDT us Heike Farnsworth MD LAB BLOOD ORDERABLES Final Result Performing Organization Address City/State/[facility] Co de Phone Number [facility] [place] [address] from Last 3 Months or Most Recently Relevant to Health Maintenance Insurance [facility] AETNA MEDICARE [facility] T MEDICARE [facility] MEDICARE [facility] Advance Directives For more information, please contact: [phone] Documents on File Type Date Recorded Patient Polystyrene Molding Machine Tender Expl anation ADVANCE DIRECTIVE 11/10/2016 12:00 AM POWER OF FAMILY NURSE FINANCIAL/MEDICAL * Full Code (Latest Code Status on File) Date Activated Date Inactivated Comments 11/16/2023 1:57 AM 11/17/2023 8:00 PM Care Teams Senior Qa Automation Engineer Relationship Specialty Start Date End Date José Miguel Mccrary MD [address] [place] [address] PCP - General Internal Medicine 12/31/20 Anjel Marshall MD [address] [place] [address] Castables Worker Cardiology 12/31/20 Mason Potter MD [address] [facility] [place] [address] [place] [address] Surgeon Vascular Surgery 01/01/21 Jamarcus Barreto MD [address] [place] [phone] Referring Physician Hematology 08/20/22 [place] [address] [facility] [address] [place] [address] Referring Physician Surgery 08/20/22
--- OUTSIDE RECORDS SUMMARY | 2024-10-21 07:39 | XMS_ITS | Encounter Summary ---
Author Organization [facility] Address [address] [facility] [place] [address] Care Team Providers Care Turnstile Collector Name Role Phone José Miguel Mccrary MD Primary Care Provider [phone] Encounter Details Date Type Department Care Team (Late st Contact Info) Description 12/10/2022 Lab Requisition [facility] - DermPath Lab [address] [place] [phone] Kaity Burks MD [address] [place] [address] [place] [phone] Neoplasm of uncertain behavior of skin Social History Tobacco Use Types Packs/Day Years Used Date Smoking Tobacco: Never Assessed Sex and Gender Information Value Date Recorded Sex Assigned at Not on file 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 Gender Identity Not on file Sexual Orientation Not on file documented as of this encounter Plan of Treatment Not on file documented as of this encounter Procedures Procedure Name Priority Date/Time Associated Diagnosis Comments DERMATOPATHOLOGY Routine 12/10/2022 12:0 0 AM CDT Neoplasm of uncertain behavior of skin [ICD-10-CM] documented in this encounter Results * DERMATOPATHOLOGY (12/10/2022 12:00 AM CDT) Case Report Dermatopathology Report Case: [id number] Authorizing Provider: Kaity Burks MD Collected: 12/10/2022 12:00 AM Ordering Location: [facility] DermPath Lab Received: 12/14/2022 06:35 AM Pathologist: Stacey Palma MD Specimen: Skin, right helix 12:01 PM T DERMATOPATHOLOGY LABORATORY Final Diagnosis Specimen A. SKIN, right helix: SQUAMOUS CELL CARCINOMA, ACANTHOLYTIC TYPE (C44.222) 3 12:01 PM T DERMATOPATHOLOGY LABORATORY Clinical History Squamous Cell Carcinoma in Situ vs. Actinic Keratosis 3 12:01 PM T DERMATOPATHOLOGY LABORATORY Gross Description Specimen A: Received is one formalin filled container labeled with the patient's name and designated right helix. The specimen consists of a shave biopsy measuring [id number]. Jar 0. 3 12:01 PM T DERMATOPATHOLOGY LABORATORY Microscopic Description Specimen A. SKIN, right helix: Sections show skin with irregularly shaped nests of keratinocytes with evidence of cornification. In some nests, there is loss of cohesion between the neoplastic cells, as well as individual dyskeratotic cells that lack intercellular bridges. 12:01 PM T DERMATOPATHOLOGY LABORATORY Disclaimer An external and internal positive and negative controls are appropriate for the histochemical, immunohistochemical and immunofluorescence stain(s) in this case (if any), except where stated explicitly. The performance characteristics of the stain(s) cited in this report were developed and its performance characteristic determined by the Dermatopathology Laboratory at [facility], directed by Dr. Helene Aguirre. These tests need not be, and therefore are not, approved by the [place] Food and Drug Administration. The tests are used for clinical purposes. Billing Codes Specimen Charges Stain Charges 85025 1 3 12:01 PM CDT DERMATOPATHOLOGY LABORATORY Embedded Images 12:01 PM CDT DERMATOPATHOLOGY LABORATORY Pathology/Cytolog y TISSUE SPECIMEN FROM SKIN / Unknown 12/10/2022 12/14/2022 6:35 AM CDT us Kaity Burks MD LAB - PATHOLOGY/CYTOLOGY ORDERAB LES Final Result DERMATOPATHOLOGY LABORATORY [facility] - Department of Dermatology [address], [address] [phone] documented in this encounter Visit Diagnoses Diagnosis Neoplasm of uncertain behavior of skin documented in this encounter Care Teams Turnstile Collector Relationship Specialty Start Date End Date José Miguel Mccrary MD [address] [address] PCP - General 07/20/19 documented as of this encounter
--- OUTSIDE RECORDS SUMMARY | 2024-10-21 07:39 | XMS_ITS | Encounter Summary ---
Author Organization [facility] Address Counts include 234 beds at the [facility] [place] [address] Care Team Providers Care Pediatric Dentist Name Role Phone José Miguel Mccrary MD Primary Care Provider [phone] Anjel Marshall MD Unavailable [phone] Encounter Details Date Type Department Care Team (Late st Contact Info) Description 08/01/2020 Abstract [facility] [address] Keila Wells MA Social History Tobacco Use Types Packs/Day Years Used Date Smoking Tobacco: Heavy Smoker Cigarettes 2 60 Smokeless Tobacco: Never Alcohol Use Standard Drinks/Week Comments Yes 0 (1 standard drink = 0.6 oz pur e alcohol) 3x weekly Sex and Gender Information Value Date Recorded Sex Assigned at Male 08/04/2024 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 Answer Date of Assessment Author Status No 10/05/2018 4:33 PM CDT Activ e * Do you have serious difficulty walking or climbing stairs? Answer Date of Assessment Author Status No 10/05/2018 4:33 PM CDT Rahel Jimenez R N Active * Do you have difficulty dressing or bathing? Answer Date of Assessment Author Status No 10/05/2018 4:33 PM CDT [place], Marietta Burgos Active * Because of a physical, mental, or emotional condition, do you have difficulty doing errands alone such as visiting a doctor's office or shopping? Answer Date of Assessment Author Status No 10/05/2018 4:33 PM CDT Margarita JimenezMarietta Cr Active documented as of this encounter Mental Status * Because of a physical, mental, or emotional condition, do you have serious difficulty concentrating, remembering, or making decisions? Answer Entry Date Author Status No 10/05/2018 4:33 PM CDT Margarita JimenezMarietta Cr Active documented in this encounter Plan of Treatment Upcoming Encounters Date Type Department Care Team (Late st Contact Info) Description 02/06/2025 9:45 AM CDT Office Visit [facility], [address] [phone] Anjel Marshall MD [facility]. [facility] [address] [place], [place] [phone] documented as of this encounter Procedures Procedure Name Priority Date/Time Associated Diagnosis Comments COMPREHENSIVE METABOLIC PANEL Routine 04/07/2022 LIPID PANEL Routine 04/07/2022 HEMOGLOBIN, GLYCOSYLATED Routine 04/07/2022 COMPREHENSIVE METABOLIC PANEL Routine 07/31/2021 LIPID PANEL Routine 07/31/2021 HEMOGLOBIN, GLYCOSYLATED Routine 07/31/2021 COMPREHENSIVE METABOLIC PANEL Routine 04/04/2021 LIPID PANEL Routine 04/04/2021 HEMOGLOBIN, GLYCOSYLATED Routine 04/04/2021 AST/SGOT Routine 02/27/2021 LIPID PANEL Routine 02/27/2021 HEMOGLOBIN, GLYCOSYLATED Routine 02/27/2021 CK (CPK) Routine 02/27/2021 LIPID PANEL Routine 07/31/2020 CK (CPK) Routine 07/31/2020 ALT/SGPT Routine 07/31/2020 documented in this encounter Results * HEMOGLOBIN, GLYCOSYLATED (04/07/2022) HGB A1C 7.5 % 04/07/2022 us Default History Genericprovider LABORATORY Final Result * LIPID PANEL (04/07/2022) Pathologist [facility] CHOLESTEROL 156 HDL 45 TRIGLYCERIDES 149 LDL (CALCULATED) 95 04/07/2022 us Default History Genericprovider LABORATORY Final Result * (ABNORMAL) COMPREHENSIVE METABOLIC PANEL (04/07/2022) Pathologist [facility] SODIUM S/P/B 139 POTASSIUM S/P/B 4.4 CO2 26 CHLORIDE S/P/B 103 GLUCOSE 140 mg/dL CALCIUM S/P/B 9.6 BUN 24 CREATININE S/P/B 1.50(A) 0.7 - 1.3 EGFR NON-AFR. AMER. 46 <=90 ALKALINE PHOSPHATASE S/P/B 43 ALT 35 AST 35 BILIRUBIN TOTAL S/P/B 0.6 ALBUMIN S/P/B 4.4 3.5 - 5.0 TOTAL PROTEIN S/P/B 7.0 04/07/2022 us Default History Genericprovider LABORATORY Final Result * HEMOGLOBIN, GLYCOSYLATED (07/31/2021) HGB A1C 8.4 % 07/31/2021 us Doc [facility] LABORATORY Final Result * LIPID PANEL (07/31/2021) CHOLESTEROL 163 HDL 44 TRIGLYCERIDES 225 DIRECT LDL 82 07/31/2021 us Doc [facility] LABORATORY Final Result * COMPREHENSIVE METABOLIC PANEL (07/31/2021) SODIUM S/P/B 141 POTASSIUM S/P/B 4.3 CO2 29 CHLORIDE S/P/B 106 GLUCOSE 143 mg/dL CALCIUM S/P/B 9.5 BUN 18 CREATININE S/P/B 1.10 0.7 - 1.3 EGFR NON-AFR. AMER. >60 <=90 ALKALINE PHOSPHATASE S/P/B 41 ALT 27 AST 28 BILIRUBIN TOTAL S/P/B 0.6 ALBUMIN S/P/B 4.3 3.5 - 5.0 TOTAL PROTEIN S/P/B 7.0 07/31/2021 us Doc [facility] LABORATORY Final Result * HEMOGLOBIN, GLYCOSYLATED (04/04/2021) HGB A1C 8.0 % 04/04/2021 us Doc [facility] LABORATORY Final Result * LIPID PANEL (04/04/2021) CHOLESTEROL 184 HDL 47 TRIGLYCERIDES 262 LDL (CALCULATED) 104 04/04/2021 us Doc [facility] LABORATORY Final Result * COMPREHENSIVE METABOLIC PANEL (04/04/2021) SODIUM S/P/B 143 POTASSIUM S/P/B 4.8 CO2 28 CHLORIDE S/P/B 105 GLUCOSE 147 mg/dL CALCIUM S/P/B 9.8 BUN 19 CREATININE S/P/B 1.10 0.7 - 1.3 EGFR NON-AFR. AMER. >60 <=90 ALKALINE PHOSPHATASE S/P/B 44 ALT 27 AST 30 BILIRUBIN TOTAL S/P/B 0.6 ALBUMIN S/P/B 4.8 3.5 - 5.0 TOTAL PROTEIN S/P/B 8.0 04/04/2021 us Doc [facility] LABORATORY Final Result * AST/SGOT (02/27/2021) AST 17 02/27/2021 us Doc [facility] LABORATORY Final Result * CK (CPK) (02/27/2021) CPK 86 02/27/2021 us Doc [facility] LABORATORY Final Result * HEMOGLOBIN, GLYCOSYLATED (02/27/2021) HGB A1C 7.8 % 02/27/2021 us Doc [facility] LABORATORY Final Result * LIPID PANEL (02/27/2021) CHOLESTEROL 201 HDL 42 TRIGLYCERIDES 283 NON HDL CHOLESTEROL 159 LDL (CALCULATED) 119 02/27/2021 us Doc [facility] LABORATORY Final Result * ALT/SGPT (07/31/2020) ALT 24 9 - 46 07/31/2020 us Doc [facility] LABOR[facility] Edited Resul t - Final * CK (CPK) (07/31/2020) CPK 81 44 - 196 07/31/2020 us Doc [facility] LABORATORY Edited Resul t - Final * LIPID PANEL (07/31/2020) CHOLESTEROL 185 HDL 36 TRIGLYCERIDES 272 NON HDL CHOLESTEROL 149 LDL (CALCULATED) 110 07/31/2020 us Doc [facility] LABORATORY Edited Resul t - Final documented in this encounter Visit Diagnoses Not on filedocumented in this encounter Care Teams Pediatric Dentist Relationship Specialty Start Date End Date José Miguel Mccrary MD [address] [facility] [address] [place] [address] PCP - General 12/30/16 Anjel Marshall MD [facility]. [facility] [address] [place] [address] [employer] Intern CARDIOVASCULAR DISEASE 12/11/15 documented as of this encounter
--- OUTSIDE RECORDS SUMMARY | 2024-10-21 07:39 | XMS_ITS | Clinical Summary ---
Author Organization [facility] Address [address] [place] [address] Care Team Providers Care Animal Health Technician Name Role Phone José Miguel Mccrary MD Primary Care Provider Source Comments [facility],non-owned Affiliates and Associated Physician Practices is amultiple site organization consisting of ambulatory clinics and hospital sitesin [place], [place], [place] and [place]. This disclosure is being madepursuant to the Care Everywhere program and may not contain all information available regarding this patient. 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 Gender Identity Not on file Sexual Orientation Not on file Plan of Treatment Health Maintenance Due Date Last Done Comments HEPATITIS C SCREENING 05/16/1963 DTAP/TDAP/TD VACCINES (1 - Tdap) 1965 PNEUMOCOCCAL VACCINE 50+ (1 of 1 - PCV) 1996 ZOSTER VACCINE (1 of 2) 1996 Respiratory Syncytial Virus (RSV) Vaccine Pt: or over 60 yrs (1 - 1-dose 75+ series) 2021 COVID-19 VACCINE (3 - season) 2024 10/02/2020, 09/05/2020 DEPRESSION SCREENING 07/12/2024 MEDICARE AWV CALENDAR YEAR 2024 INFLUENZA VACCINE (Season Ended) 2025 05/06/2020, 05/31/2019, 04/11/2019, Additional history exists HEPATITIS B VACCINE Aged Out No longe r eligible based on patient's age to complete this topic HIB VACCINE Aged Out No longer eligi ble based on patient's age to complete this topic HPV VACCINE Aged Out No longer eligi ble based on patient's age to complete this topic MENINGOCOCCAL (Group B) VACCINE SHARED DECISION-MAKING Aged Out No longer eligible based on patient's age to complete this topic MENINGOCOCCAL GROUPS A/C/Y/W VACCINE Aged Out No longer eligible based on patient's age to complete this topic Insurance AETNA AETNA MEDICARE ADV Care Teams Animal Health Technician Relationship Specialty Start [place] [address] [place] [address] Pocket Concierge [address] [address] PCP - General 07/20/19
--- OUTSIDE RECORDS SUMMARY | 2024-10-21 07:39 | XMS_ITS | Encounter Summary ---
Author Organization [facility] Address Formerly [facility], later [facility] [place] [address] Care Team Providers Care General Technician Name Role Phone José Miguel Mccrary MD Primary Care Provider [phone] Anjel Marshall MD Unavailable [phone] Encounter Details Date Type Department Care Team (Late st Contact Info) Description 10/12/2018 Hosp Visit [facility] [place] [address] Liliana Naranjo RN Social History Tobacco Use Types Packs/Day Years Used Date Smoking Tobacco: Heavy Smoker Cigarettes 2 60 Smokeless Tobacco: Never Alcohol Use Standard Drinks/Week Comments Yes 0 (1 standard drink = 0.6 oz pur e alcohol) 3x weekly Sex and Gender Information Value Date Recorded Sex Assigned at Male 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 Answer Date of Assessment Author Status No 10/05/2018 4:33 PM CDT Barbara Marietta Burgos Active documented as of this encounter Mental Status * Because of a physical, mental, or emotional condition, do you have serious difficulty concentrating, remembering, or making decisions? Answer Entry Date Author Status No 10/05/2018 4:33 PM CDT Barbara Marietta Burgos Active documented in this encounter Plan of Treatment Upcoming Encounters Date Type Department Care Team (Late st Contact Info) Description 02/06/2025 9:45 AM CDT Office Visit [facility], [address] [phone] Anjel Marshall MD [facility]. [address] [address] documented as of this encounter Visit Diagnoses Not on filedocumented in this encounter Care Teams General Technician Relationship Specialty Start Date End Date José Miguel Mccrary MD [address] [facility] 2 [place] [address] PCP - General 12/30/[address] [facility]. [facility] [address] [place], [place] [address] [place] Clinical Quality Analyst CARDIOVASCULAR DISEASE 12/11/15 documented as of this encounter
--- OUTSIDE RECORDS SUMMARY | 2024-10-21 07:39 | XMS_ITS | Encounter Summary ---
Author Organization [facility] Address [address] [facility] [place] [address] Care Team Providers Care Fur Designer Name Role Phone José Miguel Mccrary MD Primary Care Provider [phone] Encounter Details Date Type Department Care Team (Late st Contact Info) Description 06/11/2023 Lab Requisition [facility] - Derm[facility] Lab [address] [facility] [place] [id number] Kaity Burks MD [address] [place] [address] [place] [phone] Neoplasm of uncertain behavior of skin Social History Tobacco Use Types Packs/Day Years Used Date Smoking Tobacco: Never Assessed Sex and Gender Information Value Date Recorded Sex Assigned at Not on file Legal Sex Male 6:49 AM 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 PATTERNMAKER Gender Identity Not on file Sexual Orientation Not on file documented as of this encounter Plan of Treatment Not on file documented as of this encounter Procedures Procedure Name Priority Date/Time Associated Diagnosis Comments DERMATOPATHOLOGY Routine 06/11/2023 12:0 0 AM ENVELOPE PATTERNMAKER Neoplasm of uncertain behavior of skin documented in this encounter Results * DERMATOPATHOLOGY (06/11/2023 12:00 AM ENVELOPE PATTERNMAKER) Case Report Dermatopathology Report Case: [id number] Authorizing Provider: Kaity Burks MD Collected: 06/11/2023 12:00 AM Ordering Location: [facility] Received: 06/14/2023 06:37 AM Pathologist: Alfredo Aguirre MD Specimen: Skin, right helix 3 4:45 PM [facility] DERMATOPATHOLOGY LABORATORY Final Diagnosis Specimen A. SKIN, right helix: DERMAL SCAR - RESIDUAL TUMOR IS NOT IDENTIFIED (L90.5) 3 4:45 PM [facility] DERMATOPATHOLOGY LABORATORY Clinical History Squamous Cell Carcinoma s Scar, ? Residual SCC ? 3 4:45 PM [facility] DERMATOPATHOLOGY LABORATORY Gross Description Specimen A: Received is one formalin filled container labeled with the patient's name and designated right helix. The specimen consists of a shave biopsy measuring 9x8x2 mm. Jar 0. 3 4:45 PM [facility] DERMATOPATHOLOGY LABORATORY Microscopic Description Specimen A. SKIN, right helix: There are fibroblasts and collagen bundles oriented parallel to the skin surface. There are elongated blood vessels, some of which are oriented perpendicular to the skin surface. No residual tumor is identified and is confirmed with BerEp4. 3 4:45 PM [facility] DERMATOPATHOLOGY LABORATORY Disclaimer An external and internal positive and negative controls are appropriate for the histochemical, immunohistochemical and immunofluorescence stain(s) in this case (if any), except where stated explicitly. The performance characteristics of the stain(s) cited in this report were developed and its performance characteristic determined by the Dermatopathology Laboratory at [facility], directed by Dr. Helene Aguirre. These tests need not be, and therefore are not, approved by the [place] Food and Drug Administration. The tests are used for clinical purposes. Billing Codes Specimen Charges Stain Charges 07052 1 76272 1 3 4:45 PM [facility] DERMATOPATHOLOGY LABORATORY Embedded Images 3 4:45 PM [facility] DERMATOPATHOLOGY LABORATORY Pathology/Cytolog y TISSUE SPECIMEN FROM SKIN / Unknown 06/11/2023 06/14/2023 6:37 AM [facility] us Kaity Burks MD LAB - PATHOLOGY/CYTOLOGY ORDERAB LES Final Result DERMATOPATHOLOGY LABORATORY [facility] - Department of Dermatology [address], [address] [phone] documented in this encounter Visit Diagnoses Diagnosis Neoplasm of uncertain behavior of skin documented in this encounter Care Teams Fur Designer Relationship Specialty Start Date End Date José Miguel Mccrary MD [facility] [address] [address] PCP - General 07/20/19 documented as of this encounter
--- OUTSIDE RECORDS SUMMARY | 2024-10-21 07:39 | XMS_ITS | Encounter Summary ---
Author Organization [facility] Address [facility] [place] [address] Care Team Providers Care Clinical Research Assistant Name Role Phone José Miguel Mccrary MD Primary Care Provider [phone] Anjel Marshall MD Unavailable [phone] Encounter Details Date Type Department Care Team (Late Contact Info) Description 08/03/2018 Hospital Orders Only [facility] Broadcast Supervisor [place], [place] [phone] Anjel Marshall MD Three [facility]. [address] [phone] Social History Tobacco Use Types Packs/Day Years Used Date Smoking Tobacco: Heavy Smoker Cigarettes 1.5 60 Smokeless Tobacco: Never Alcohol Use Standard Drinks/Week Comments Yes 0 (1 standard drink = 0.6 oz pur e alcohol) Sex and Gender Information Value Date Recorded Sex Assigned at Male 08/04/2024 9:44 AM OPERATIONS RECRUITER 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1:37 AM CDT Gender [...] CDT Office Visit [facility] [address] [place], [place] [phone] Anjel Marshall MD Three [facility]. [facility] [address] [place], [place] [phone] documented as of this encounter Visit Diagnoses Not on filedocumented in this encounter Care Teams Clinical Research Assistant Relationship Specialty Start Date End Date José Miguel Mccrary MD [address] [facility] 2 [place] [address] PCP - General 12/30/16 Anjel Marshall MD Three [facility]. [facility] [address] [place] [address] [place] Aml Analyst CARDIOVASCULAR DISEASE 12/11/15 documented as of this encounter
--- OUTSIDE RECORDS SUMMARY | 2024-10-21 07:40 | XMS_ITS | Encounter Summary ---
Author Organization [facility] Facility Care Team Providers Care Ethnic Studies Professor Name Role Phone José Miguel Mccrary MD Primary Care Provide r José Miguel Mccrary MD Primary Care Provide r Anjel Marshall MD Unavailable [phone] Mason Potter MD Unavailable [phone] Jamarcus Barreto MD Unavailable [phone] Shabbir Casey MD Unavailable [phone] Encounter Details Date Type Department Care Team (Latest Contact Info) Description 08/05/2016 Orders Only [facility] ProviderDaniel MD [address] [place] [address] Social History Tobacco Use Types Packs/Day Years Used Date Smoking Tobacco: Never Assessed Comments:Smoking History Pac ks/day: 1 Packs Alcohol Use Standard Drinks/Week Comments Yes 0 (1 standard drink = 0.6 oz pur e alcohol) Sex and Gender Information Value Date Recorded Sex Assigned at Not on file 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:22 AM 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 Historical Provider Final Res ult documented in this encounter Visit Diagnoses Not on filedocumented in this encounter Care Teams Ethnic Studies Professor Relationship Specialty Start Date End Date José Miguel Mccrary MD [address] [place] [address] PCP - General 09/29/13 12/30/20 José Miguel Mccrary MD [address] [place] [address] PCP - General Internal Medicine 12/31/20 Anjel Marshall MD [address] [place] [address] Tobacco Buyer Cardiology 12/31/20 Mason Potter MD [address] [facility] [address] [address] Surgeon Vascular Surgery 01/01/21 Jamarcus Barreto MD [address] [phone] Referring Physician Hematology 08/20/22 [place] [address] [facility] [address] [place] [phone] Referring Physician Surgery 08/20/22 documented as of this encounter
--- OUTSIDE RECORDS SUMMARY | 2024-10-21 07:40 | XMS_ITS | Encounter Summary ---
Author Organization [facility] Facility Care Team Providers Care Hydraulic Operator Name Role Phone José Miguel Mccrary MD Primary Care Provide r José Miguel Mccrary MD Primary Care Provide r Anjel Marshall MD Unavailable [phone] Mason Potter MD Unavailable [phone] Jamarcus Barreto MD Unavailable [phone] Shabbir Casey MD Unavailable [phone] Encounter Details Date Type Department Care Team (Latest Contact Info) Description 04/28/2016 Orders Only [facility] ProviderDaniel MD [address] [place] [address] Social History Tobacco Use Types Packs/Day Years Used Date Smoking Tobacco: Never Assessed Comments:Smoking History Pac ks/day: 1 Packs Alcohol Use Standard Drinks/Week Comments Yes 0 (1 standard drink = 0.6 oz pur e alcohol) Sex and Gender Information Value Date Recorded Sex Assigned at Not on file 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:22 AM MANAGER BIOLOGICS Gender Identity Not on file Sexual Orientation Not on file documented as of this encounter Plan of Treatment Not on file documented as of this encounter Procedures Procedure Name Priority Date/Time Associated Diagnosis Comments PROCEDURE - RESULT 04/28/2016 12 :00 AM CDT documented in this encounter Results * PROCEDURE - RESULT (04/28/2016 12:00 AM CDT) Narrative 04/28/2016 12:00 AM CDT Ordered by an unspecified provider. Historical Provider Final Res ult documented in this encounter Visit Diagnoses Not on filedocumented in this encounter Care Teams Hydraulic Operator Relationship Specialty Start Date End Date José Miguel Mccrary MD [address] [place] [address] PCP - General 09/29/13 12/30/20 José Miguel Mccrary MD [address] [place] [address] PCP - General Internal Medicine 12/31/20 Anjel Marshall MD [address] [place] [address] Shotgun Shell Loading Machine Operator Cardiology 12/31/20 Mason Potter MD [address] [facility] [place] [address] [place] [address] Surgeon Vascular Surgery 01/01/21 Jamarcus Barreto MD [address] [phone] Referring Physician Hematology 08/20/22 [place] [address] [facility] [address] [place] [address] Referring Physician Surgery 08/20/22 documented as of this encounter
--- OUTSIDE RECORDS SUMMARY | 2024-10-21 07:40 | XMS_ITS | Encounter Summary ---
Author Organization [facility] Facility Care Team Providers Care Rn Plasma Center Name Role Phone José Miguel Mccrary MD Primary Care Provide r José Miguel Mccrary MD Primary Care Provide r Anjel Marshall MD Unavailable [phone] Mason Potter MD Unavailable [phone] Jamarcus Barreto MD Unavailable [phone] Shabbir Casey MD Unavailable [phone] Encounter Details Date Type Department Care Team (Latest Contact Info) Description 05/18/2016 Orders Only [facility] ProviderDaniel MD [address] [place] [address] Social History Tobacco Use Types Packs/Day Years Used Date Smoking Tobacco: Never Assessed Comments:Smoking History Pac ks/day: 1 Packs Alcohol Use Standard Drinks/Week Comments Yes 0 (1 standard drink = 0.6 oz pur e alcohol) Sex and Gender Information Value Date Recorded Sex Assigned at Not on file 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:22 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 ROOM ATTENDANT Gender Identity Not on file Sexual Orientation [...] on filedocumented in this encounter Care Teams Rn Plasma Center Relationship Specialty Start Date End Date José Miguel Mccrary MD [address] [place] [address] PCP - General 09/29/13 12/30/20 José Miguel Mccrary MD [address] [place] [address] PCP - General Internal Medicine 12/31/20 Anjel Marshall MD [address] [place] [address] Journeyman Operator Assistant Cardiology 12/31/20 Mason Potter MD [address] [facility] [address] [place] [address] Surgeon Vascular Surgery 01/01/21 Jamarcus Barreto MD [address] [phone] Referring Physician Hematology 08/20/22 [place] [address] [facility] [address] [place] [address] Referring Physician Surgery 08/20/22 documented as of this encounter
--- OUTSIDE RECORDS SUMMARY | 2024-10-21 07:40 | XMS_ITS | Encounter Summary ---
Author Organization [facility] Facility Care Team Providers Care Motor And Chassis Inspector Name Role Phone José Miguel Mccrary MD Primary Care Provide r José Miguel Mccrary MD Primary Care Provide r Anjel Marshall MD Unavailable [phone] Mason Potter MD Unavailable [phone] Jamarcus Barreto MD Unavailable [phone] Shabbir Casey MD Unavailable [phone] Encounter Details Date Type Department Care Team (Latest Contact Info) Description 04/27/2016 Orders Only [facility] ProviderDaniel MD [address] [place] [address] Social History Tobacco Use Types Packs/Day Years Used Date Smoking Tobacco: Never Assessed Comments:Smoking History Pac ks/day: 1 Packs Alcohol Use Standard Drinks/Week Comments Yes 0 (1 standard drink = 0.6 oz pur e alcohol) Sex and Gender Information Value Date Recorded Sex Assigned at Not on file 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 Historical Provider Final Res ult documented in this encounter Visit Diagnoses Not on filedocumented in this encounter Care Teams Motor And Chassis Inspector Relationship Specialty Start Date End Date José Miguel Mccrary MD [address] [place] [address] PCP - General 09/29/13 12/30/20 José Miguel Mccrary MD [address] [place] [address] PCP - General Internal Medicine 12/31/20 Anjel Marshall MD [address] [place] [address] What Job Titles Mean Cardiology 12/31/20 Mason Potter MD [address] [facility] [place] [address] [place] [address] Surgeon Vascular Surgery 01/01/21 Jamarcus Barreto MD [address] [phone] Referring Physician Hematology 08/20/22 [place] [address] [facility] [address] [place] [address] Referring Physician Surgery 08/20/22 documented as of this encounter
--- OUTSIDE RECORDS SUMMARY | 2024-10-21 07:40 | XMS_ITS | Encounter Summary ---
Author Organization [facility] Facility Care Team Providers Care Black Top Raker Name Role Phone José Miguel Mccrary MD Primary Care Provide r José Miguel Mccrary MD Primary Care Provide r Anjel Marshall MD Unavailable [phone] Mason Potter MD Unavailable [phone] Jamarcus Barreto MD Unavailable [phone] Shabbir Casey MD Unavailable [phone] Encounter Details Date Type Department Care Team (Latest Contact Info) Description 11/06/2016 Orders Only [facility] ProviderDaniel MD [address] [place] [address] Social History Tobacco Use Types Packs/Day Years Used Date Smoking Tobacco: Never Assessed Comments:Smoking History Pac ks/day: 1 Packs Alcohol Use Standard Drinks/Week Comments Yes 0 (1 standard drink = 0.6 oz pur e alcohol) Sex and Gender Information Value Date Recorded Sex Assigned at Not on file 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 Historical Provider Final Res ult documented in this encounter Visit Diagnoses Not on filedocumented in this encounter Care Teams Black Top Raker Relationship Specialty Start Date End Date José Miguel Mccrary MD [address] [place] [address] PCP - General 09/29/13 12/30/20 José Miguel Mccrary MD [address] [place] [address] PCP - General Internal Medicine 12/31/20 Anjel Marshall MD [address] [place] [address] [place] Department Supervisor Cardiology 12/31/20 Mason Potter MD [address] [facility] [place] [address] [place] [address] Surgeon Vascular Surgery 01/01/21 Jamarcus Barreto MD [address] [phone] Referring Physician Hematology 08/20/22 [place] [address] [facility] [address] [place] [address] Referring Physician Surgery 08/20/22 documented as of this encounter
--- OUTSIDE RECORDS SUMMARY | 2024-10-21 07:40 | XMS_ITS | Encounter Summary ---
Author Organization [facility] Facility Care Team Providers Care Board Handler Name Role Phone José Miguel Mccrary MD Primary Care Provide r José Miguel Mccrary MD Primary Care Provide r Anjel Marshall MD Unavailable [phone] Mason Potter MD Unavailable [phone] Jamarcus Barreto MD Unavailable [phone] Shabbir Casey MD Unavailable [phone] Encounter Details Date Type Department Care Team (Latest Contact Info) Description 08/17/2016 Orders Only [facility] ProviderDaniel MD [address] [place] [address] Social History Tobacco Use Types Packs/Day Years Used Date Smoking Tobacco: Never Assessed Comments:Smoking History Pac ks/day: 1 Packs Alcohol Use Standard Drinks/Week Comments Yes 0 (1 standard drink = 0.6 oz pur e alcohol) Sex and Gender Information Value Date Recorded Sex Assigned at Not on file 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:22 AM COURTESY CLERK Gender Identity Not on file Sexual Orientation Not on file documented as of this encounter Plan of Treatment Not on file documented as of this encounter Procedures Procedure Name Priority Date/Time Associated Diagnosis Comments SCAN - PATHOLOGY 08/20/2016 12:0 0 AM COURTESY CLERK documented in this encounter Results * SCAN - PATHOLOGY (08/20/2016 12:00 AM COURTESY CLERK) Narrative 08/20/2016 12:00 AM COURTESY CLERK Ordered by an unspecified provider. Historical Provider Final Res ult documented in this encounter Visit Diagnoses Not on filedocumented in this encounter Care Teams Board Handler Relationship Specialty Start Date End Date José Miguel Mccrary MD [address] [place] [address] PCP - General 09/29/13 12/30/20 José Miguel Mccrary MD [address] [place] [address] PCP - General Internal Medicine 12/31/20 Anjel Marshall MD [address] [place] [address] College President Cardiology 12/31/20 Mason Potter MD [address] [facility] [place] [address] [place] [address] Surgeon Vascular Surgery 01/01/21 Jamarcus Barreto MD [address] [address] Referring Physician Hematology 08/20/22 [place] [address] [facility] [address] [place] [address] Referring Physician Surgery 08/20/22 documented as of this encounter
--- OUTSIDE RECORDS SUMMARY | 2024-10-21 07:40 | XMS_ITS | Encounter Summary ---
Author Organization [facility] Facility Care Team Providers Care Skill Training Program Coordinator Name Role Phone José Miguel Mccrary MD Primary Care Provide r José Miguel Mccrary MD Primary Care Provide r Anjel Marshall MD Unavailable [phone] Mason Potter MD Unavailable [phone] Jamarcus Barreto MD Unavailable [phone] Shabbir Casey MD Unavailable [phone] Encounter Details Date Type Department Care Team (Latest Contact Info) Description 06/25/2016 Orders Only [facility] CLINCONV ProviderDaniel MD [address] [place] [address] Social History Tobacco Use Types Packs/Day Years Used Date Smoking Tobacco: Never Assessed Comments:Smoking History Pac ks/day: 1 Packs Alcohol Use Standard Drinks/Week Comments Yes 0 (1 standard drink = 0.6 oz pur e alcohol) Sex and Gender Information Value Date Recorded Sex Assigned at Not on file 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:22 AM WASHTUB WORKER Gender Identity Not on file Sexual Orientation Not on file documented as of this encounter Plan of Treatment Not on file documented as of this encounter Procedures Procedure Name Priority Date/Time Associated Diagnosis Comments PROCEDURE - RESULT 06/09/2016 12 :00 AM WASHTUB WORKER documented in this encounter Results * PROCEDURE - RESULT (06/09/2016 12:00 AM WASHTUB WORKER) Narrative 06/09/2016 12:00 AM WASHTUB WORKER Ordered by an unspecified provider. Historical Provider Final Res ult documented in this encounter Visit Diagnoses Not on filedocumented in this encounter Care Teams Skill Training Program Coordinator Relationship Specialty Start Date End Date José Miguel Mccrary MD [address] [place] [address] PCP - General 09/29/13 12/30/20 José Miguel Mccrary MD [address] [place] [address] PCP - General Internal Medicine 12/31/20 Anjel Marshall MD [address] [place] [address] Green Building Design Specialist Cardiology 12/31/20 Mason Potter MD [address] [facility] [address] [address] Surgeon Vascular Surgery 01/01/21 Jamarcus Barreto MD [address] [address] Referring Physician Hematology 08/20/22 [place] [address] [facility] [address] [place] [phone] Referring Physician Surgery 08/20/22 documented as of this encounter
--- OUTSIDE RECORDS SUMMARY | 2024-10-21 07:40 | XMS_ITS | Encounter Summary ---
Author Organization [facility] Facility Care Team Providers Care Business Operations Specialist Name Role Phone José Miguel Mccrary MD Primary Care Provide r José Miguel Mccrary MD Primary Care Provide r Anjel Marshall MD Unavailable [phone] Mason Potter MD Unavailable [phone] Jamarcus Barreto MD Unavailable [phone] Shabbir Casey MD Unavailable [phone] Encounter Details Date Type Department Care Team (Latest Contact Info) Description 04/29/2016 Orders Only [facility] CLINCONV ProviderDaniel MD [address] [place] [address] Social History Tobacco Use Types Packs/Day Years Used Date Smoking Tobacco: Never Assessed Comments:Smoking History Pac ks/day: 1 Packs Alcohol Use Standard Drinks/Week Comments Yes 0 (1 standard drink = 0.6 oz pur e alcohol) Sex and Gender Information Value Date Recorded Sex Assigned at Not on file 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 Historical Provider Final Res ult documented in this encounter Visit Diagnoses Not on filedocumented in this encounter Care Teams Business Operations Specialist Relationship Specialty Start Date End Date José Miguel Mccrary MD [address] [place] [address] PCP - General 09/29/13 12/30/20 José Miguel Mccrary MD [address] [place] [address] PCP - General Internal Medicine 12/31/20 Anjel Marshall MD [address] [place] [address] Steam Frame Operator Cardiology 12/31/20 Mason Potter MD [address] [facility] [place] [id number] [place] [address] Surgeon Vascular Surgery 01/01/21 Jamarcus Barreto MD [address] [address] Referring Physician Hematology 08/20/22 [place] [address] [facility] [address] [place] [address] Referring Physician Surgery 08/20/22 documented as of this encounter
--- OUTSIDE RECORDS SUMMARY | 2024-10-21 07:40 | XMS_ITS | Encounter Summary ---
Author Organization [facility] Facility Care Team Providers Care Furniture Servicer Name Role Phone José Miguel Mccrary MD Primary Care Provide r José Miguel Mccrary MD Primary Care Provide r Anjel Marshall MD Unavailable [phone] Mason Potter MD Unavailable [phone] Jamarcus Barreto MD Unavailable [phone] Shabbir Casey MD Unavailable [phone] Encounter Details Date Type Department Care Team (Latest Contact Info) Description 11/04/2016 Orders Only [facility] CLINCONV Provider, MD Daniel [address] [place] [address] Social History Tobacco Use Types Packs/Day Years Used Date Smoking Tobacco: Never Assessed Comments:Smoking History Pac ks/day: 1 Packs Alcohol Use Standard Drinks/Week Comments Yes 0 (1 standard drink = 0.6 oz pur e alcohol) Sex and Gender Information Value Date Recorded Sex Assigned at Not on file 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:22 AM DECONTAMINATION TECHNICIAN Gender Identity Not on file Sexual Orientation Not on file documented as of this encounter Plan of Treatment Not on file documented as of this encounter Procedures Procedure Name Priority Date/Time Associated Diagnosis Comments PROCEDURE - RESULT 11/04/2016 12 :00 AM CDT PROCEDURE - RESULT 11/04/2016 12 :00 AM CDT documented in this encounter Results * PROCEDURE - RESULT (11/04/2016 12:00 AM CDT) Narrative 11/04/2016 12:00 AM CDT Ordered by an unspecified provider. us Historical Provider Final Res ult * PROCEDURE - RESULT (11/04/2016 12:00 AM CDT) Narrative 11/04/2016 12:00 AM CDT Ordered by an unspecified provider. Historical Provider Final Res ult documented in this encounter Visit Diagnoses Not on filedocumented in this encounter Care Teams Furniture Servicer Relationship Specialty Start Date End Date José Miguel Mccrary MD [address] [place] [address] PCP - General 09/29/13 12/30/20 José Miguel Mccrary MD [address] [facility] [place] [address] PCP - General Internal Medicine 12/31/20 Anjel Marshall MD [address] [place] [address] Ore Storage Drier Cardiology 12/31/20 Mason Potter MD [address] [facility] [address] [place] [address] Surgeon Vascular Surgery 01/01/21 Jamarcus Barreto MD [address] [place] [address] Referring Physician Hematology 08/20/22 [place] [address] [facility] [address] [place] [address] Referring Physician Surgery 08/20/22 documented as of this encounter
--- OUTSIDE RECORDS SUMMARY | 2024-10-21 07:40 | XMS_ITS | Clinical Summary ---
Author Organization [facility] Address [address] [place] [address] Care Team Providers Care Grounds Manager Name Role Phone José Miguel Mccrary MD Primary Care Provider [phone] Anjel Marshall MD Unavailable [phone] Allergies Active Allergy Reactions Criticality Noted Date Comments Fenofibrate Myalgias 11/07/2018 Aches and pains all over Lisinopril Swelling 09/02/2022 Tongue swelling Penicillins Anaphylaxis High 05/07/2016 Medications glimepiride 4 MG tablet Take 1 tablet (4 mg total) by mouth every morning before breakfast. 05/15/20 16 Active glimepiride 2 MG tablet Take 1 tablet (2 mg total) by mouth nightly. 11/21/19 17 Active pantoprazole 40 MG tablet Take 1 tablet (40 mg total) by mouth daily. 11/22/19 17 Active Multiple Vitamins-Alexand[place] als (MULTIVITAMIN ADULT OR) Active potassium chloride CR 10 MEQ CR capsule Take 1 capsule (10 mEq total) by mouth daily. 60 capsule 10/10/19 19 Active Additional Information Patient not taking.Reported on 08/04/2024 fenofibrate 145 MG tablet Take 1 tablet (145 mg total) by mouth daily. 2 12/25/19 19 Active metFORMIN 1000 MG tablet Take 0.5 tablets (500 mg total) by mouth 2 (two) times daily with meals. 02/08/20 19 Active clopidogrel 75 MG tablet Take 1 tablet (75 mg total) by mouth daily. 90 tablet 3 02/12/20 21 Active oxyCODONE immediate release (ROXICODONE) 5 MG immediate release tablet Take 1 tablet (5 mg total) by mouth every 6 (six) hours as needed. 06/18/20 22 Active cephALEXin (KEFLEX) 500 MG capsule Take 4 capsules (2g total) 30 minutes prior to dental procedure. 4 capsule 10/05/19 24 Active furosemide (LASIX) 40 MG tablet take 1 & 1/2 (one & one-half) tablets by mouth once daily 135 tablet 1 11/09/19 24 Active Additional Information Patient not taking.Reported on 08/04/2024 albuterol sulfate HFA 108 (90 Base) MCG/ACT inhaler INHALE 1 TO 2 PUFFS BY MOUTH EVERY 4 TO 6 HOURS NEEDED FOR SHORTNESS OF BREATH FOR WHEEZING 06/23/20 24 Active amLODIPine (NORVASC) 10 MG tablet Take 1 tablet (10 mg total) by mouth daily. Active finasteride (PROSCAR) 5 MG tablet Take 1 tablet (5 mg total) by mouth daily. Active tamsulosin (FLOMAX) 0.4 MG Cap Take 1 capsule (0.4 mg total) by mouth daily. Active ezetimibe (ZETIA) 10 MG tablet Take 1 tablet by mouth once daily 90 tablet 08/17/19 25 Active atorvastatin (LIPITOR) 80 MG tablet TAKE 1 TABLET BY MOUTH NIGHTLY AT BEDTIME 90 tablet 1 10/17/19 25 Active atorvastatin (LIPITOR) 80 MG tablet Take 1 tablet (80 mg total) by mouth nightly at bedtime. 90 tablet 06/30/20 24 025 Discontinued Active Problems Problem Noted Date Diagnosed Date Chronic obstructive pulmonary disease (CMS/HCC H HS/HCC) 10/05/2023 Obstructive sleep apnea (adult) (pediatric) 09/10 Type 2 diabetes mellitus wit hout complications (CMS/HCC HHS/HCC) 06/19/2022 HCC (hepatocellular carcinoma) (CMS/HCC HHS/HCC) 05/11/2022 Mass of right lobe of liver 03/26/2022 Abdominal aortic aneurysm (AAA) without rupture 05/02/2021 Overview (08/27/2021): Last Assessment & Plan: Impression: Patient reports he has had a history of abdominal aortic aneurysm repair 5 or 6 years ago at an outside facility. He has not been seen since the procedure. Plan: Patient to follow-up in 6 months for re-evaluation with CTA of aorta with runoff. Last Assessment & Plan: Impression: Patient reports he has had a history of abdominal aortic aneurysm repair 5 or 6 years ago at an outside facility. He has not been seen since the procedure. Plan: Patient to follow-up in 6 months for re-evaluation with CTA of aorta with runoff. S/P AVR 11/14/2018 SBE (subacute bacterial endocarditis) prophylaxi s candidate 11/14/2018 Tobacco use 12/09/2016 Diabetes mellitus ([facility]) 12/09/2016 Aortic stenosis 12/09/2016 Intermittent claudication of both lower extremities due to atherosclerosis 09/18/2016 Overview (08/27/2021): Last Assessment & Plan: Patient has undergone staged bilateral lower extremity endovascular interventions. His claudication symptoms have resolved completely. He is pleased with the result and has no complaints. Continue anti-platelet therapy and follow-up in 3 months for duplex. Last Assessment & Plan: Impression: Patient is status post right SFA stent in 2015 and left femoral tibial bypass graft with insight to saphenous vein in 2016. Patient has stable non limiting claudication to bilateral lower extremities. Bypass graft to left lower extremity is patent as well as stent to right SFA as seen on arterial duplex. Plan: Patient to continue ongoing risk factor modifications. Patient to follow- up in 6 months for re-evaluation with arterial duplex. Edema 05/15/2016 PVD (peripheral vascular disease) 05/15/2016 Benign essential HTN 05/15/2016 Bilateral carotid artery stenosis 04/30/2016 Overview (03/03/2023): Last Assessment & Plan: Impression: Patient is status post bilateral carotid endarterectomy. He remains asymptomatic. Bilateral carotid arteries are patent as seen on carotid duplex. Plan: Continue ongoing risk factor modifications. Patient to follow-up in 1 year for re-evaluation with repeat carotid duplex. Essential hypertension Hyperlipidemia Resolved Problems Problem Noted Date Diagnosed Date Resolved Date Preoperative clearance 05/15/201603/22 Atherosclerosis with claudic ation of extremity 05/07/2016 Encounters Date Type Department Care Team Description 08/10/2024 Orders Only [facility], [facility] [address] [place] [address] Beatriz Herzog RN 08/09/2024 Telephone [facility], [place] [address] [place] [address] Beatriz Herzog, heel seat filler Reconciliation 08/04/2024 9:45 AM CONCRETE FINISHER APPRENTICE Office Visit [facility], [place] [address] [place] [address] Juanita Paulino, ASSISTANT SALES CENTER MANAGERShaistaC Follow Up (6 MO- AVS, PVD, HTN) 08/04/2024 Travel from Last 3 Months Family History Medical History Relation Comments Cancer Father Emphysema Father Heart Disease Father [place] Father Heart Disease Mother Family history is noncontributory Other Relation Status Comments Brother 1 (Age 64) Brother 2 Alive stent Daughter Alive Father (Age 79) heart attack, cancer, emphysema Mother (Age 83) during open he art surgery Other Sister Alive Son (Age 24) mva Social History Tobacco Use Types Packs/Day Years Used Date Smoking Tobacco: Heavy Smoker Cigarettes 2 60 Smokeless Tobacco: Never Tobacco Cessation:Ready to Q uit: Not Asked; Counseling Given: Not Answered Alcohol Use Standard Drinks/Week Comments Yes 0 (1 standard drink = 0.6 oz pur e alcohol) 3x weekly Sex and Gender Information Value Date Recorded Sex Assigned at Male 08/04/2024 9:44 AM CONCRETE FINISHER APPRENTICE 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1:37 AM CDT Gender Identity Not on file Sexual Orientation Not on file Occupation Industry Job Start Date Job End Date Not on file Not on file Not on file Not on file Last Filed Vital Signs Vital Sign Reading Time Taken Comments Blood Pressure 152/84 08/04/2024 9:49 AM CONCRETE FINISHER APPRENTICE Pulse 100 08/04/2024 9:49 AM CONCRETE FINISHER APPRENTICE Temperature 37 C (98.6 F) 10/09/2018 12:10 PM CDT Respiratory Rate 17 10/09/2018 12:10 PM CDT Oxygen Saturation 96% 08/04/2024 9:49 AM CONCRETE FINISHER APPRENTICE Inhaled Oxygen Concentration - - Weight 86.2 kg (190 lb) 08/04/2024 9:49 AM CONCRETE FINISHER APPRENTICE Height 182.9 cm (6') 08/04/2024 9:49 AM CONCRETE FINISHER APPRENTICE Body Mass Index 25.77 08/04/2024 9:49 AM CONCRETE FINISHER APPRENTICE Plan of Treatment Upcoming Encounters Date Type Department Care Team (Late st Contact Info) Description 02/06/2025 9:45 AM CDT Office Visit [facility], [address] [address] Anjel Marshall MD [facility]. [address] [id number] Health Maintenance Due Date Last Done Comments Kidney Health Evaluation 1945 Diabetes: Retinopathy Eye Exam 1964 Hepatitis C 1964 DTaP, Tdap and Td Vaccines (1 - Tdap) 1965 Zoster Vaccines (1 of 2) 1996 Annual Medicare Wellness Visit 2011 RSV Immunization or 60+ Years (1 - 1-dose 75+ series) 2021 Lipid Panel 04/07/2023 04/07/2022, 07/13, 04/04/2021, Additional history exists COVID-19 Vaccine ( season) 2024 10/02/2020, 09/05/2020 Hemoglobin A1C 05/18/2024 11/16/2023, 03/13, 07/31/2021, Additional history exists Pneumococcal Vaccine: 65+ Years Completed 05/31/2019, 05/18/2018 AAA SCREENING Completed 08/17/2024, 12/2024, 06/05/2024, Additional history exists Meningococcal B Vaccine Aged Out No l onger eligible based on patient's age to complete this topic Meningococcal Vaccine Aged Out No harsh sara eligible based on patient's age to complete this topic RSV Immunizations Under 20 Months Aged Out No longer eligible based on patient's age to complete this topic Medical Devices Implanted Type Area Credit Specialist Device Identifier Shelf Expiration Date Model / Serial / Lot Valve Aortic Mosaic Ultra 25mm - [id number] Implanted:Qty: 1 on 10/04/2018 by Daily, Rajeev Potts MD at [facility] Valve Implant N/A: Heart [employer] 05/11/2023 [id number] / [id number] / Suture Sternotomy Kit - [id number] Implanted:Qty: 1 on 10/04/2018 by Daily, Rajeev Potts MD at [facility] Wire N/A: [employer] 04/11/2023 [id number] / / [id number] Description:5 wires implante d Wire Sut 18in Myowr2 7;.5 [place]; Ccs-1 Mfil; Cnv - [id number] Implanted:Qty: 1 on 10/04/2018 by Daily, Rajeev Potts MD at [facility] Wire N/A: [employer] 05/12/2023 [id number] / / [id number] Description:2 Wire Implanted Bard Sauvage Filamentous Knitted Polyester Fabric Implanted:Qty: 1 on 10/04/2018 by Daily, Rajeev Potts MD at [facility] N/A: Aorta 03/08/2023 [id number] / / [id number] Procedures Procedure Name Priority Date/Time Associated Diagnosis Comments LIPID PANEL Routine 04/07/2022 HEMOGLOBIN, GLYCOSYLATED Routine 04/07/2022 CT CHEST WO CON Routine 09/26/2018 8:46 AM CDT Shortness of breath from Last 3 Months or Most Recently Relevant to Health Maintenance Results * LIPID PANEL (04/07/2022) Pathologist [facility] CHOLESTEROL 156 HDL 45 TRIGLYCERIDES 149 LDL (CALCULATED) 95 04/07/2022 us Default History Genericprovider LABORATORY Final Result * HEMOGLOBIN, GLYCOSYLATED (04/07/2022) HGB A1C 7.5 % 04/07/2022 us Default History Genericprovider LABORATORY Final Result from Last 3 Months or Most Recently Relevant to Health Maintenance Insurance AETNA AETNA Advance Directives Documents on File Type Date Recorded Patient Rn Radiation Expl anation Advance Directives and Living Will 10/05/2018 6:51 AM [facility] Fely echevarria 4-20-16 * Full Code (Latest Code Status on File) Date Activated Date Inactivated Comments 10/04/2018 11:23 AM 10/09/2018 5:58 PM * Full Code Date Activated Date Inactivated Comments 08/04/2018 11:21 AM 08/04/2018 5:17 PM Care Teams Grounds Manager Relationship Specialty Start Date End Date José Miguel Mccrary MD [address] [facility] [address] [place] [address] PCP - General 12/30/16 Anjel Marshall MD [facility]. [facility] [address] [place] [address] [place] Diver Helper CARDIOVASCULAR DISEASE 12/11/15
--- OUTSIDE RECORDS SUMMARY | 2024-10-21 07:40 | XMS_ITS | Continuity of Care Document ---
Author Organization [facility] Address [address] [address] Insurance Providers Payer Plan Claims Address Claims Phone Policy Number Group Number Relation Employer Guarantor Name Guarantor Guarantor Address Guarantor Phone [employer] [address], [place] [address] tel:[phone] [id number] Self Robin Buchanan 1945 [address] [place] [address] [employer] MEDIC ARE ADV [address], [place] [address] tel:[phone] Self Robin Buchanan 1945 [address] [place] [address] [employer] [address], [place] [address] [id number] Self Robin Buchanan 1945 [address] [place] [address] Problems Condition ICD9 code ICD10 code SNOMED code Start Date End Date S tatus Type 2 diabetes mellitus without complications E11.9 [facility] Essential (primary) hypertension I10 Working Nonrheumatic aortic (valve) stenosis I35.0 Working Liver cell carcinoma C22.0 [facility] Atherosclerosis of [place] arteries of extremities with intermittent claudication, bilateral legs I70.213 Working Occlusion and stenosis of bilateral carotid arteries I65.23 Working Other specified symptoms and signs involving the circulatory and respiratory systems R09.89 Worki ng Sleep apnea, unspecified G47.30 Working Chronic obstructive pulmonary disease, unspecified J44.9 Working Obstructive sleep apnea (adult) (pediatric) G47.33 Worki ng Hyperlipidemia, unspecified E78.5 Working Vitamin D deficiency, unspecified E55.9 Working Encounter for screening for malignant neoplasm of prostate Z12.5 Working Acute kidney failure, unspecified N17.9 Working Dehydration E86.0 Working Retention of urine, unspecified R33.9 Working Chronic kidney disease, unspecified N18.9 Working Hypertensive chronic kidney disease with stage 1 through stage 4 chronic kidney disease, or unspecified chronic kidney disease I12.9 Working Type 2 diabetes mellitus with diabetic chronic kidney disease E11.22 Working Results No Results Allergies, adverse reactions, alerts No known allergies and adverse reactions Medications No administered medications reported Vital Signs No vital signs reported Social History No smoking Hx information available
--- OUTSIDE RECORDS SUMMARY | 2024-10-21 07:40 | XMS_ITS | Encounter Summary ---
Author Organization [facility] Facility Care Team Providers Care Mill Hand Name Role Phone José Miguel Mccrary MD Primary Care Provide r José Miguel Mccrary MD Primary Care Provide r Anjel Marshall MD Unavailable [phone] Mason Potter MD Unavailable [phone] Jamarcus Barreto MD Unavailable [phone] Shabbir Casey MD Unavailable [phone] Encounter Details Date Type Department Care Team (Latest Contact Info) Description 05/15/2016 Orders Only [facility] ProviderDaniel MD [address] [place] [address] Social History Tobacco Use Types Packs/Day Years Used Date Smoking Tobacco: Never Assessed Comments:Smoking History Pac ks/day: 1 Packs Alcohol Use Standard Drinks/Week Comments Yes 0 (1 standard drink = 0.6 oz pur e alcohol) Sex and Gender Information Value Date Recorded Sex Assigned at Not on file 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:22 AM HOTEL YARDPERSON Gender Identity Not on file Sexual Orientation Not on file documented as of this encounter Plan of Treatment Not on file documented as of this encounter Procedures Procedure Name Priority Date/Time Associated Diagnosis Comments PROCEDURE - RESULT 05/29/2016 12 :00 AM HOTEL YARDPERSON documented in this encounter Results * PROCEDURE - RESULT (05/29/2016 12:00 AM HOTEL YARDPERSON) Narrative 05/29/2016 12:00 AM HOTEL YARDPERSON Ordered by an unspecified provider. Historical Provider Final Res ult documented in this encounter Visit Diagnoses Not on filedocumented in this encounter Care Teams Mill Hand Relationship Specialty Start Date End Date José Miguel Mccrary MD [address] [place] [address] PCP - General 09/29/13 12/30/20 José Miguel Mccrary MD [address] [place] [address] PCP - General Internal Medicine 12/31/20 Anjel Marshall MD [address] [place] [address] Gallery Or Museum Technician Cardiology 12/31/20 Mason Potter MD [address] [facility] [address] [address] Surgeon Vascular Surgery 01/01/21 Jamarcus Barreto MD [address] [phone] Referring Physician Hematology 08/20/22 [place] [address] [facility] [address] [place] [address] Referring Physician Surgery 08/20/22 documented as of this encounter
--- OUTSIDE RECORDS SUMMARY | 2024-10-21 07:40 | XMS_ITS | Clinical Summary ---
Author Organization [facility] [address] [facility] Address [address] [place] [address] Care Team Providers Care Senior Market Research Analyst Name Role Phone José Miguel Mccrary MD Primary Care Provider [phone] Allergies Active Allergy Reactions Criticality Noted Date Comments Penicillins Shortness of Breath/Wheezing,Nausea and Vomiting High 05/07/2016 it doesn't work for me Pt states medication is ineffective unable to use Medications atorvastatin (LIPITOR) 80 mg tablet Take 80 mg by mouth daily. 9 Active clopidogreL (PLAVIX) 75 mg Tablet Take 1 Tablet by mouth daily. 1 Active furosemide (LASIX) 40 mg tablet Take 40 mg by mouth daily. 2 Active glimepiride (AMARYL) 4 mg tablet Take 4 mg by mouth daily. 2 Active lisinopriL (PRINIVIL) 5 mg tablet Take 5 mg by mouth daily. 9 Active metFORMIN (GLUCOPHAGE) 1,000 mg tablet Take 500 mg by mouth 2 times daily. 9 Active pantoprazole (PROTONIX) 40 mg Tablet, Delayed Release (E.C.) Take 40 mg by mouth daily. 2 Active potassium chloride (MICRO-K EXTENCAPS) 10 mEq Extended Release capsule Take 10 mEq by mouth daily. 9 Active aspirin (ECOTRIN EC) 81 mg Tablet, Delayed Release (E.C.) Take 81 mg by mouth daily at bedtime. Active glimepiride (AMARYL) 2 mg tablet Take 2 mg by mouth daily at bedtime. Active metoprolol tartrate (LOPRESSOR) 50 mg tablet Take 50 mg by mouth 2 times daily with meals. 2 Active ezetimibe (ZETIA) 10 mg tablet Take 10 mg by mouth daily. 2 Active fenofibrate nanocrystallized (TRICOR) 145 mg tablet Take 145 mg by mouth daily. 2 Active oxyCODONE (ROXICODONE) 5 mg tabletIndications:HC C (hepatocellular carcinoma) (CMS/HCC) Take 1 Tablet (5 mg) by mouth every 4 hours as needed for Pain. Max Daily Amount: 30 mg 30 Tablet 06/19/2022 3:09 PM [employer] SAL[employer] 2 Active oxyCODONE (ROXICODONE) 5 mg tabletIndications:HC C (hepatocellular carcinoma) (CMS/HCC) Take 1 Tablet (5 mg) by mouth every 6 hours as needed for Pain. Max Daily Amount: 20 mg 20 Tablet 3 Active HYDROcodone-acetamin ophen (NORCO) 5-325 mg tabletIndications:HC C (hepatocellular carcinoma) (CMS/HCC) Take 1 Tablet by mouth every 4 hours as needed for Pain, Moderate. Max Daily Amount: 6 Tablets 90 Tablet 3 Active Active Problems Problem Noted Date Diagnosed Date Type 2 diabetes mellitus without complications 1 08/20/2021 HCC (hepatocellular carcinoma) 05/11/2022 Mass of right lobe of liver 03/26/2022 Social History Tobacco Use Types Packs/Day Years Used Date Smoking Tobacco: Every Day Cigarettes Smokeless Tobacco: Never Tobacco Cessation:Ready to Q uit: Not Asked; Counseling Given: Not Answered Alcohol Use Standard Drinks/Week Comments Yes 15 (1 standard drink = 0.6 oz pu re alcohol) Sex and Gender Information Value Date Recorded Sex Assigned at Not on file Legal Sex Male 2:38 PM CDT Gender Identity Not on file Sexual Orientation Not on file Last Filed Vital Signs Vital Sign Reading Time Taken Comments Blood Pressure 135/55 08/05/2022 1:30 PM [employer] Pulse 71 08/05/2022 1:30 PM [employer] Temperature 36.6 C (97.9 F) 08/05/2022 7:05 AM [employer] Respiratory Rate 20 08/05/2022 10:44 AM [employer] Oxygen Saturation 98% 08/05/2022 1:30 PM [employer] Inhaled Oxygen Concentration - - Weight 90.7 kg (200 lb) 08/05/2022 7:05 AM [employer] Height 180.3 cm (5' 11 ) 08/05/2022 7:05 AM [employer] Body Mass Index 27.89 08/05/2022 7:05 AM [employer] Plan of Treatment Health Maintenance Due Date Last Done Comments DIABETES ANNUAL FOOT EXAM 1964 DIABETES ANNUAL RETINAL EXAM 1964 DIABETES MICROALBUMIN ANNUAL SCREEN 1964 LDL CHOLESTEROL ANNUAL 1964 DTAP/TDAP/TD VACCINES (1 - Tdap) 1965 ZOSTER VACCINE (1 of 2) 1996 RSV VACCINE (60+ or ) (1 - 1-dose 75+ series) 2021 INFLUENZA VACCINE (#1) 2024 , 05/06/2020, 05/06/2020, Additional history exists COVID-19 Vaccine (3 - 2023-2 5 season) 2024 10/02/2020, 09/05/2020 DIABETES HBA1C Q 6 MONTHS 05/18/2024 11/16/2023 PNEUMOCOCCAL VACCINE 50+ YEARS Completed 05/31/2019 , 05/18/2018 Medical Devices Implanted Type Area Chargemaster Specialist Device Identifier Shelf Expiration Date Model / Serial / Lot Hemostat Surg Snow 2x4in 2081 - [id number] Implanted:Qty : 1 on 06/18/2022 by Shabbir Casey MD at [facility] Hemostatic N/A: Abdomen [employer]- [employer] 02/09/20242081 / / [id number] Insurance AETNA O MCR AETNA O [facility] RX AETNA Medicare Part D Advance Directives For more information, please contact: [phone] * Full Code (Latest Code Status on File) Date Activated Date Inactivated Comments 06/18/2022 11:01 AM 06/19/2022 5:49 PM Care Teams Senior Market Research Analyst Relationship Specialty Start Date End Date José Miguel Mccrary MD [address] [place] [id number] PCP - General Internal Medicine 01/05/22
--- OUTSIDE RECORDS SUMMARY | 2024-10-21 07:40 | XMS_ITS | Referral Summary ---
Author Organization [facility] Address [address] [place] [address] Care Team Providers Care Tray Checker Name Role Phone José Miguel Mccrary MD Primary Care Provide r Anjel Marshall MD Unavailable [phone] Mason Potter MD Unavailable [phone] Jamarcus Barreto MD Unavailable [phone] Shabbir Casey MD Unavailable [phone] Encounters Date Type Department Care Team Description 08/22/2024 11:45 AM SENIOR CONSTRUCTION ESTIMATOR Lab [facility] - Lab Collection [address] [place] [address] 5 [place] [address] Hepatocellular carcinoma (HCC) 08/22/2024 1:00 PM SENIOR CONSTRUCTION ESTIMATOR Office Visit [facility] [address] [place] [phone] Ryanne Copeland MD Hepatocellular carcinoma (HCC) (Primary Dx); Declined smoking cessation 08/22/2024 12:00 PM SENIOR CONSTRUCTION ESTIMATOR Lab [facility] [address] [place] [address] 5 [place] [address] Hepatocellular carcinoma (HCC) 08/17/2024 8:29 AM SENIOR CONSTRUCTION ESTIMATOR - 08/17/2024 11:59 PM SENIOR CONSTRUCTION ESTIMATOR Hospital Encounter [facility] [address] [place] [address] Ryanne Copeland MD Hepatocellular carcinoma (HCC) Discharge Disposition: Discharge to home or self care 08/15/2024 Telephone [facility] [address] [facility] [address] [place] [address] Sangeetha Dan RN 08/10/2024 Documentation [facility] Medical [facility] Vascular and Vein Surgery [address] [place] [address] [address] [place] [address] Ana Rojo MA 08/02/2024 Orders Only [facility] Medical [facility] Vascular and Vein Surgery [address] [place] [address] [address] [place] [address] Mason Potter MD Aftercare following surgery of the circulatory system (Primary Dx) 08/02/2024 10:15 AM SENIOR CONSTRUCTION ESTIMATOR Office Visit [facility] Medical [facility] Vascular and Vein Surgery [address] [place] [address] [address] [place] [address] Madie Canales NP Type 2 diabetes mellitus without complication, unspecified whether instrument processing tech insulin use (HCC) (Primary Dx); PVD (peripheral vascular disease); Mixed hyperlipidemia; Benign essential HTN; 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 08/02/2024 9:01 AM SENIOR CONSTRUCTION ESTIMATOR - 08/02/2024 11:59 PM SENIOR CONSTRUCTION ESTIMATOR Hospital Encounter [facility] [address] [place] [address] PVD (peripheral vascular disease) Discharge Disposition: Discharge to home or self care 08/02/2024 9:01 AM SENIOR CONSTRUCTION ESTIMATOR - 08/02/2024 11:59 PM SENIOR CONSTRUCTION ESTIMATOR Hospital Encounter [facility] [address] [place] [address] PVD (peripheral vascular disease) Discharge Disposition: Discharge to home or self care from Last 3 Months Allergies Active Allergy Reactions Criticality Noted Date [...] mg total) by mouth daily 2 03/13/20 Active glimepiride (AMARYL) 4 mg tablet Take [...] for Assessment & Plan (05/18/2019 9:27 AM SENIOR CONSTRUCTION ESTIMATOR): Stable glucose control with use medication. Plan: [...] time. Assessment & Plan (05/18/2019 9:27 AM SENIOR CONSTRUCTION ESTIMATOR): Educated the patient on the importance of smoking cessation as it relates to health benefits. Plan: Further management as per primary care provider Atherosclerosis of ouzinkie ar monserrat of both lower extremities with intermittent claudication 09/18/2016 Assessment & Plan (08/10/2024 9:02 AM SENIOR CONSTRUCTION ESTIMATOR): No symptoms of claudication or rest pain. Current duplex to the right lower extremity for new baseline status post angiogram with intervention shows a patent right SFA and popliteal stent. Continue Plavix and statin therapy. Follow up in 6 months for routine surveillance with lower extremity arterial duplex and ABIs. We will also refer to [facility] for pneumatic compression pumps to help with [...] cm. Assessment & Plan (05/26/2024 9:47 AM SENIOR CONSTRUCTION ESTIMATOR): Follow up exercise study does reveal a [...] duplex. Assessment & Plan (06/17/2020 3:22 PM SENIOR CONSTRUCTION ESTIMATOR): Impression: Stable nondisabling claudication both lower extremities. [...] months Assessment & Plan (05/18/2019 9:26 AM SENIOR CONSTRUCTION ESTIMATOR): Patient continues to do well status post left femoral tibial bypass graft in 2017, and right SFA stenting. 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 He denies [...] 05/15/2016 Assessment & Plan (06/29/2024 12:00 PM SENIOR CONSTRUCTION ESTIMATOR): Status post balloon angioplasty to the right [...] duplex. Assessment & Plan (06/17/2020 3:23 PM SENIOR CONSTRUCTION ESTIMATOR): Impression: Patient recovering status post bilateral carotid endarterectomy is. He has had no neurological deficits in the interim and his carotid duplex surveillance revealed stable occlusive disease with no progressive stenosis. Plan: Recommend ongoing risk factor modifications and follow-up in 6 months for re-evaluation and repeat carotid duplex surveillance. Assessment & Plan (05/18/2019 9:26 AM SENIOR CONSTRUCTION ESTIMATOR): Patient doing well status post bilateral carotid [...] Atherosclerosis with claudication of extremity 0 04/07/2016 Immunizations Immunization Administration Dates Next Due Influenza LAIV (Nasal) 05/06/2020 Influenza, Quadrivalent, Hig h Dose, Preservative Free, Intrr 05/06/2020 Influenza, Quadrivalent, Split, Intramuscular Influenza, Trivalent, High D ose, Split, Preservative Free, Intramuscular 05/31/2019,05/18/2018 Pfizer SARS-CoV-2 Monovalent Vaccination (12+ Yrs) PURPLE 10/02/2020,09/05/2020 Pneumococcal Conjugate PCV 13 05/18/2018 Pneumococcal Polysaccharide PPV23 05/31/2019 Social History Tobacco Use Types Packs/Day Years [...] on file 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:22 AM SENIOR CONSTRUCTION ESTIMATOR Gender Identity Not on file Sexual Orientation Not on file Last Filed Vital Signs Vital Sign Reading Time Taken Comments Blood Pressure 154/67 08/22/2024 12:26 PM SENIOR CONSTRUCTION ESTIMATOR Pulse 95 08/22/2024 12:26 PM SENIOR CONSTRUCTION ESTIMATOR Temperature 36.2 C (97.2 F) 08/22/2024 12:26 PM SENIOR CONSTRUCTION ESTIMATOR Respiratory Rate 18 08/22/2024 12:26 PM SENIOR CONSTRUCTION ESTIMATOR Oxygen Saturation 97% 08/22/2024 12:26 PM SENIOR CONSTRUCTION ESTIMATOR Inhaled Oxygen Concentration - - Weight 86.6 kg (191 lb) 08/22/2024 12:26 PM SENIOR CONSTRUCTION ESTIMATOR Height 176.4 cm (5' 9.45 ) 08/22/2024 12:[address] Body Mass Index 27.84 08/22/2024 12:26 PM SENIOR CONSTRUCTION ESTIMATOR Plan of Treatment Not on file Medical Devices Implanted Type Area Steerer Device Identifier Shelf Expiration Date Model / Serial / Lot SwipeClock [id number] Ml 6mm 80mm 130cm Drug Elute Delivery System Stent Vascular - [id number] Implanted:Qty: 1 on 01/01/2021 by Mason Potter MD at [facility] Jet Zakiya 07/30/2022 [id number] / / [id number] Bard Peripheral Vascular [id number] E-Luminexx Safe Performaxx 8mm 6fr 60mm 80cm Delivery System - [id number] Implanted:Qty: 1 on 01/01/2021 by Mason Potter MD at [facility] Peripheral Vascular [id number] 02/08/2023 [id number] / / [id number] Bard Peripheral Vascular [id number] Lifestream 8mm 26mm 80cm Balloon Expandable Low Profile Cover - [id number] Implanted:Qty: 1 on 01/09/2021 by Mason Potter MD at [facility] Peripheral Vascular 03/11/2023 [id number] / / [id number] Torres Vascular [id number] Perclose 6fr Suture Mediate Knot Push Vascular Device Closure - [id number] Implanted:Qty: 1 on 01/09/2021 by Mason Potter MD at [facility] Torres Vascular 10/09/2022 [id number] / / [id number] [place] Peripheral Vascular [id number] E-Luminexx Safe Performaxx 8mm 6fr 80mm 80cm Delivery System - [id number] Implanted:Qty: 1 on 01/09/2021 by Mason Potter MD at [facility] Peripheral Vascular 04/29/2021 [id number] / / [id number] Torres Vascular System Closure Repair Femoral Artery Suture Mediated Perclose Prostyle [id number] - [id number] Implanted:Qty: 1 on 06/12/2024 by Mason Potter MD at [facility] [employer] Vascular 02/08/2026 [id number] / / [id number] Procedures Procedure Name Priority Date/Time Associated Diagnosis Comments EGFR Routine 08/22/2024 11:48 AM SENIOR CONSTRUCTION ESTIMATOR Hepatocellular carcinoma (HCC) DIFFERENTIAL AUTO Routine 08/22/2024 11: 48 AM SENIOR CONSTRUCTION ESTIMATOR Hepatocellular carcinoma (HCC) CBC WITH AUTO DIFFERENTIAL Routine 08/22/2024 11:48 AM SENIOR CONSTRUCTION ESTIMATOR Hepatocellular carcinoma (HCC) COMPREHENSIVE METABOLIC PANEL Routine 08/22/2024 11:48 AM SENIOR CONSTRUCTION ESTIMATOR Hepatocellular carcinoma (HCC) [id number], TUMOR MARKER Routine 08/22/2024 11:48 AM SENIOR CONSTRUCTION ESTIMATOR Hepatocellular carcinoma (HCC) CT CHEST ABDOMEN PELVIS W CONTRAST Schedule Routine, Read Routine (OP Routine) 08/17/2024 9:41 AM SENIOR CONSTRUCTION ESTIMATOR Hepatocellular carcinoma (HCC) POCT CREATININE - DEVICE Routine 08/17/2024 8:57 AM SENIOR CONSTRUCTION ESTIMATOR US SHAHLA Schedule Routine, Read Routine (OP Routine) 08/02/2024 10:26 AM SENIOR CONSTRUCTION ESTIMATOR PVD (peripheral vascular disease) US ARTERIAL DUPLEX LOWER EXTREMITY RIGHT LIMITED Schedule Routine, Read Routine (OP Routine) 08/02/2024 10:24 AM SENIOR CONSTRUCTION ESTIMATOR PVD (peripheral vascular disease) HEMOGLOBIN A1C STAT 11/16/2023 3:24 AM CDT from Last 3 Months or Most Recently Relevant to Health Maintenance Results * (ABNORMAL) eGFR (08/22/2024 11:48 AM SENIOR CONSTRUCTION ESTIMATOR) eGFR 36(L) >=60 mL/min/1. 73 m2 Comment: [...] reviewed 2021. Blood 08/22/2024 11:4 8 AM SENIOR CONSTRUCTION ESTIMATOR 08/22/2024 11:52 AM SENIOR CONSTRUCTION ESTIMATOR [facility] LAB BLOOD ORDERABLES Neha ruiz Result [facility] [place] [address] * Differential, auto (08/22/2024 11:48 AM SENIOR CONSTRUCTION ESTIMATOR) Neutrophil abs 5.6 1.5 - 6.5 K/cumm Comment:Testing performed by : [facility], [address] [place] [phone] Lymphocyte abs 1.0 0.8 - 3.3 K/cumm [facility] Comment:Testing performed by : [facility], [address] [place] [phone] Monocyte abs 0.8 0.2 - 0.8 K/cumm [facility] Comment:Testing performed by : [facility], [address] [place] [phone] Eosinophil abs 0.4 0.0 - 0.5 K/cumm [facility] Comment:Testing performed by : [facility], [address] [place] [phone] Basophil abs 0.1 0.0 - 0.1 K/cumm [facility] Comment:Testing performed by : [facility], [address] [place] [phone] Neutrophil pct 71.5 % [facility] Comment: Interpretive Data Percent cell count reference ranges are not reported, since discordance with absolute values may lead to misinterpretation of CBC data. Current Interpretive Data was last revised on 2017. Testing performed by: [facility], [address] [place] [phone] Lymphocyte pct 12.9 % [facility] Comment: Interpretive Data Percent cell count reference ranges are not reported, since discordance with absolute values may lead to misinterpretation of CBC data. Current Interpretive Data was last revised on 2017. Testing performed by: [facility], [address] [place] [phone] Monocyte pct 9.6 % [facility]IMA [facility] Comment: Interpretive Data Percent cell count reference ranges are not reported, since discordance with absolute values may lead to misinterpretation of CBC data. Current Interpretive Data was last revised on 2017. Testing performed by: [facility], [address] [place] [phone] Eosinophil pct 5.2 % IBRAHIMA DAVIS Comment: Interpretive Data Percent cell count reference ranges are not reported, since discordance with absolute values may lead to misinterpretation of CBC data. Current Interpretive Data was last revised on 2017. Testing performed by: [facility], [address] [place] [phone] Basophil pct 0.8 % IBRAHIMA DAVIS Comment: Interpretive Data Percent cell count reference ranges are not reported, since discordance with absolute values may lead to misinterpretation of CBC data. Current Interpretive Data was last revised on 2017. Testing performed by: [facility], [address] [place] [phone] Blood 08/22/2024 11:4 8 AM SENIOR CONSTRUCTION ESTIMATOR 08/22/2024 11:50 AM SENIOR CONSTRUCTION ESTIMATOR Moh'Brittany Copeland MD LAB BLOOD ORDERABLES Neha l Result [facility] [place] [address] * (ABNORMAL) CBC with auto differential (08/22/2024 11:48 AM SENIOR CONSTRUCTION ESTIMATOR) WBC 7.8 3.8 - 9.9 K/cumm Comment:Testing performed by : [facility], [address] [place] [phone] Hgb 13.4 13.0 - 17.5 g/dL IBRAHIMA DAVIS Comment:Testing performed by : [facility], [address] [place], [place] [phone] Hct 40.0 38.9 - 50.3 % [facility] Comment:Testing performed by : [facility], [address] [place], [place] [phone] Plt 230 150 - 400 K/cumm [facility] Comment:Testing performed by : [facility], [address] [place], [place] [phone] MPV 8.2 6.8 - 10.4 fL [facility] Comment:Testing performed by : [facility], [address] [place], [place] [phone] RBC 4.12(L) 4.30 - 5.80 M/cumm [facility] Comment:Testing performed by : [facility], [address] [place], [place] [phone] MCV 97.2(H) 81.3 - 96.4 fL [facility] Comment:Testing performed by : [facility], [address] [place], [place] [phone] MCH 32.5 27.1 - 33.3 pg [facility] Comment:Testing performed by : [facility], [address] [place] [address] MCHC 33.4 32.3 - 35.7 g/dL [facility] Comment:Testing performed by : [facility], [address] [place] [address] RDW CV 15.6(H) 11.1 - 14.9 % [facility] Comment:Testing performed by : [facility], [address] [place], [place] [phone] NRBC abs 0.00 0.00 - 0.01 K/cumm [facility] Comment:Testing performed by : [facility], [address] [place], [place] [phone] Blood 08/22/2024 11:4 8 AM SENIOR CONSTRUCTION ESTIMATOR 08/22/2024 11:50 AM SENIOR CONSTRUCTION ESTIMATOR Moh'D M Remigio Copeland MD LAB BLOOD ORDERABLES Neha l Result Performing Organization Address [facility] Co de Phone Number IBRAHIMA [facility] [place] [address] * [id number], Tumor Marker (08/22/2024 11:48 AM SENIOR CONSTRUCTION ESTIMATOR) Pathologist [facility] alpha Fetoprotein 2.3 <=8.3 ng/mL Comment: Interpretive [...] et al. J. Ped Surg 1978;13:155-156 Josias S. et al. Clin Chem Lab Med 2018;57:783-797 Madhav Grace et al. Clin Chem 2014;8802-5215. Current interpretive data was last revised 2022. Blood 08/22/2024 11:4 8 AM SENIOR CONSTRUCTION ESTIMATOR 08/22/2024 12:08 PM SENIOR CONSTRUCTION ESTIMATOR Ryanne Copeland MD LAB BLOOD ORDERABLES Neha l Result Performing Organization Address [facility] Co de Phone Number IBRAHIMA [facility] Department [place] [address] * (ABNORMAL) Comprehensive metabolic panel (08/22/2024 11:48 AM SENIOR CONSTRUCTION ESTIMATOR) [facility] Sodium 141 135 - 145 mmol/L Potassium, pl 3.9 3.3 - 4.9 mmol/L [facility] Chloride 103 97 - 110 mmol/L [facility] CO2 33(H) 22 - 32 mmol/L [facility] Anion gap 5 2 - 15 mmol/L [facility] BUN 25 6 - 25 mg/dL [facility] Creatinine 1.88(H) 0.80 - 1.30 mg/dL [facility] Glucose 221(H) 70 - 199 mg/dL [facility] Comment: Interpretive Data Fasting glucose >/= [...] classification and Diagnosis of Diabetes Diabetes Care 2021; 46: S19-S40. Current interpretive data was last revised 2022. Calcium 9.8 8.5 - 10.3 mg/dL [facility] Bilirubin, total 0.5 0.1 - 1.2 mg/dL [facility] Protein, pl 7.0 6.5 - 8.5 g/dL [facility] Albumin 4.1 3.5 - 5.0 g/dL [facility] Alk phos 66 40 - 130 Units/L [facility] ALT 14 7 - 55 Units/L [facility] AST 26 10 - 50 Units/L [facility] Blood 08/22/2024 11:4 8 AM SENIOR CONSTRUCTION ESTIMATOR 08/22/2024 11:52 AM SENIOR CONSTRUCTION ESTIMATOR Moh'Brittany Copeland MD LAB BLOOD ORDERABLES Neha l Result [facility] [place] [address] * CT Chest Abdomen Pelvis W Contrast (08/17/2024 9:41 AM SENIOR CONSTRUCTION ESTIMATOR) Anatomical Region Laterality Modality Body N/A Computed Tomogra phy 08/17/2024 10:0 6 AM SENIOR CONSTRUCTION ESTIMATOR Impressions 08/17/2024 10:22 AM SENIOR CONSTRUCTION ESTIMATOR 1. Resolution of the previously noted pulmonary [...] Adalberto Santo M.D. Narrative 08/17/2024 10:22 AM SENIOR CONSTRUCTION ESTIMATOR EXAMINATION: Computed tomography of the chest, abdomen [...] it. Electronically signed by: Adalberto Santo M.D. [facility] Cop[facility] MD IMG CT PROCEDURES Final R esult * (ABNORMAL) POCT creatinine (08/17/2024 8:57 AM SENIOR CONSTRUCTION ESTIMATOR) Creatinine POC 2.0(H) 0.8 - 1.3 mg/dL Blood 08/17/2024 8:57 AM SENIOR CONSTRUCTION ESTIMATOR 08/17/2024 8:57 AM SENIOR CONSTRUCTION ESTIMATOR Self Referral LAB POCT ORDERABLES - DEVICE Fin al Result [facility] [place] [address] * US SHAHLA (08/02/2024 10:26 AM SENIOR CONSTRUCTION ESTIMATOR) Anatomical Region Laterality Modality Vascular N/A Ultrasound 08/02/2024 Narrative 08/04/2024 11:09 AM SENIOR CONSTRUCTION ESTIMATOR [employer] Job ID: [id number] [employer] Document ID: [id number] Dictated date/time: [id number] LOWER EXTREMITY ARTERIAL DOPPLER STUDY REASON FOR EXAM Peripheral vascular disease. COMMENTS ON THE RIGHT Brachial pressure 191. PT/DP pressure 177/178. SHAHLA 0.93. Digital pressure 180. Waveforms triphasic. COMMENTS ON THE LEFT PT/DP pressure 199/206. SHAHLA is 1. Digital pressure 208. Waveforms triphasic. OVERALL IMPRESSION Normal ABIs and waveforms bilateral lower extremities. Job ID/Internal Job ID: [id number] Mason Potter MD IMG US PROCEDURES Final Re sult * US Arterial Duplex Lower Extremity Right Limited (08/02/2024 10:24 AM SENIOR CONSTRUCTION ESTIMATOR) Anatomical Region Laterality Modality Vascular Right Ultrasound 08/02/2024 Narrative 08/04/2024 11:09 AM SENIOR CONSTRUCTION ESTIMATOR [employer] Job ID: [id number] [employer] Document ID: [id number] Dictated date/time: [id number] RIGHT LOWER EXTREMITY ARTERIAL DUPLEX REASON FOR EXAM SFA stent. COMMENTS ON THE RIGHT Right common femoral and profunda femoral arteries are patent, velocities of 125 and 104 cm/sec. Right superficial femoral and popliteal artery stents are patent, velocities of 124, 118 an 76 cm/sec. OVERALL IMPRESSION Patent right superficial femoral artery and popliteal artery stents. Job ID/Internal Job ID: [id number] us Mason Potter MD [facility] US PROCEDURES Final Re sult * (ABNORMAL) Hemoglobin A1c (11/16/2023 3:24 AM CDT) Hgb A1C 8.5(H) 4.0 - 5.6 % Estimated Average Glucose 197 mg/dL IBRA[facility]IM[facility] DAVIS Comment: The ADA recommends reporting an estimated [...] Farnsworth MD LAB BLOOD ORDERABLES Final Result [facility] [place] [address] from Last 3 Months or Most Recently Relevant to Health Maintenance Insurance [facility] AETNA MEDICARE [facility] AETNA MEDICARE GOLD [facility] MEDICARE GOLD Advance Directives For more information, please contact: [phone] Documents on File Type Date Recorded 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 ADVANCE DIRECTIVE 11/10/2016 12:00 AM POWER OF DBA DEVELOPER FINANCIAL/MEDICAL * Full Code (Latest Code Status on File) Date Activated Date Inactivated Comments 11/16/2023 1:57 AM 11/17/2023 8:00 PM Care Teams Tray Checker Relationship Specialty Start Date End Date José Miguel Mccrary MD [address] [place] [address] PCP - General Internal Medicine 12/31/20 Anjel Marshall MD [address] [place] [address] Tub Puller Cardiology 12/31/20 Mason Potter MD [address] [facility] [address] [address] Surgeon Vascular Surgery 01/01/21 Jamarcus Barreto MD [address] [facility] [address] [place] [address] Referring Physician Hematology 08/20/22 [place] [address] [address] [facility] [address] [place] [address] Referring Physician Surgery 08/20/22
--- OUTSIDE RECORDS SUMMARY | 2024-10-21 07:40 | XMS_ITS | Encounter Summary ---
Author Organization [facility] Facility Care Team Providers Care Starch Factory Laborer Name Role Phone José Miguel Mccrary MD Primary Care Provide r José Miguel Mccrary MD Primary Care Provide r Anjel Marshall MD Unavailable [phone] Mason Potter MD Unavailable [phone] Jamarcus Barreto MD Unavailable [phone] Shabbir Casey MD Unavailable [phone] Encounter Details Date Type Department Care Team (Latest Contact Info) Description 11/16/2016 Orders Only [facility] CLINCONV Provider, MD Daniel [address] [place] [address] Social History Tobacco Use Types Packs/Day Years Used Date Smoking Tobacco: Never Assessed Comments:Smoking History Pac ks/day: 1 Packs Alcohol Use Standard Drinks/Week Comments Yes 0 (1 standard drink = 0.6 oz pur e alcohol) Sex and Gender Information Value Date Recorded Sex Assigned at Not on file 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 us Historical Provider Final Res ult * PROCEDURE - RESULT (11/05/2016 12:00 AM CDT) Narrative 11/05/2016 12:00 AM CDT Ordered by an unspecified provider. Historical Provider Final Res ult documented in this encounter Visit Diagnoses Not on filedocumented in this encounter Care Teams Starch Factory Laborer Relationship Specialty Start Date End Date José Miguel Mccrary MD [address] [place] [address] PCP - General 09/29/13 12/30/20 José Miguel Mccrary MD [address] [facility] [place] [place] [address] PCP - General Internal Medicine 12/31/20 Anjel Marshall MD [address] [place] [address] Insurance Office Supervisor Cardiology 12/31/20 Mason Potter MD [address] [facility] [address] [place] [address] Surgeon Vascular Surgery 01/01/21 Jamarcus Barreto MD [address] [place] [address] Referring Physician Hematology 08/20/22 [place] [address] [facility] [address] [place] [id number] Referring Physician Surgery 08/20/22 documented as of this encounter
[2024-10-21 08:15] LABS: Alanine Aminotransferase 18 U/L (6-50); Albumin Level 4.2 g/dL (3.5-5.1); Alkaline Phosphatase 64 U/L (38-126); Anion Gap 7 mmol/L (4-12); Aspartate Amino Transferase 33 U/L (17-59); Blood Urea Nitrogen 28 mg/dL (9-20); Calcium 9.4 mg/dL (8.4-10.2); Carbon Dioxide 27 mmol/L (22-30); Chloride 105 mmol/L (98-107); Cholesterol 132 mg/dL (0-200); Estimated Glomerular Filt Rate 37; Glucose 108 mg/dL (65-110); HDL Direct 56 mg/dL; Potassium 3.4 mmol/L (3.4-5.0); Sodium 139 mmol/L (137-145); Triglycerides 111 mg/dL (<150)
[2024-10-21 08:26] LABS: LDL Cholesterol Direct 49 mg/dL
[2024-10-21 08:29] LABS: Creatinine Urine 85.7 mg/dL
[2024-10-21 08:49] LABS: Vitamin D 25 Hydroxy 38.2 ng/mL
[2024-10-21 09:16] LABS: Hemoglobin A1C 6.4 % (<5.7)
[2024-10-21 10:37] LABS: MALB Creatinine Ratio 1287.3 mg/g (0-30); Microalbumin Urine Random 1103.2 mg/L (0-16.7)
[2024-10-24 16:42] LABS: Phosphorus 3.9 mg/dL (2.5-4.5)
[2024-10-24 16:45] LABS: Parathyroid Intact 40.8 pg/mL (14.5-75.2)
== END 2024-10-21 07:38 | disposition home or self-care (01) ==
PROVIDERS: Internal Medicine Nephrology; PCP Emergency Medicine; Visit Provider Emergency Medicine
DX: E78.5 Hyperlipidemia, unspecified (principal); E55.9 Vitamin D deficiency, unspecified; N18.32 Chronic kidney disease, stage 3b; E11.22 Type 2 diabetes mellitus with diabetic chronic kidney disease; I12.9 Hypertensive chronic kidney disease with stage 1 through stage 4 chronic kidney disease, or unspecified chronic kidney disease; N25.81 Secondary hyperparathyroidism of renal origin
CPT/HCPCS: 36415; 80053; 80061; 82043; 82306; 83036; 83970; 84100

== ENCOUNTER 2025-02-26 14:12 | Outpatient (CLI) | payer MEDICARE, SELFPAY ==
--- OUTSIDE RECORDS SUMMARY | 2025-02-26 15:15 | XMS_ITS | Encounter Summary ---
Author Organization [facility] Health Address [address] [facility] [place] [address] Care Team Providers Care Fire Loss Prevention Engineer Name Role Phone José Miguel Mccrary MD Primary Care Provider [phone] Encounter Details Date Type Department Care Team (Late st Contact Info) Description 12/10/2022 Lab Requisition [facility] - DermPath Lab [address] [facility] [place] [phone] Kaity Burks MD [address] [place] [address] [place] [address] Neoplasm of uncertain behavior of skin Social History Tobacco Use Types Packs/Day Years Used Date Smoking Tobacco: Never Assessed Sex and Gender Information Value Date Recorded Sex Assigned at Not on file 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 SKIN, right helix: SQUAMOUS CELL CARCINOMA, ACANTHOLYTIC TYPE (C44.222) 3 12:01 PM CDT DERMATOPATHOLOGY LABORATORY at 1201 CDT Clinical History Squamous Cell Carcinoma in Situ vs. Actinic Keratosis 3 12:01 PM CDT DERMATOPATHOLOGY LABORATORY Gross Description Specimen A: Received is one formalin filled container labeled with the patient's name and designated right helix. The specimen consists of a shave biopsy measuring [id number]. Jar 0. 3 12:01 PM T DERMATOPATHOLOGY [...] characteristic determined by the Dermatopathology Laboratory at [facility], directed by Dr. Helene Aguirre. These tests need not be, and therefore are not, approved by the [place] Food and Drug Administration. The tests are used for clinical purposes. Billing Codes Specimen Charges Stain Charges 93603 1 3 12:01 PM CDT DERMATOPATHOLOGY LABORATORY Embedded Images 3 12:01 PM CDT DERMATOPATHOLOGY LABORATORY Pathology/Cytolog y TISSUE SPECIMEN FROM SKIN / Unknown 12/10/2022 12/14/2022 6:35 AM CDT us Kaity Burks MD LAB - PATHOLOGY/CYTOLOGY ORDERAB LES Final Result DERMATOPATHOLOGY LABORATORY [facility] - Department of Dermatology [address] [phone] documented in this encounter Visit Diagnoses Diagnosis Neoplasm of uncertain behavior of skin documented in this encounter Care Teams Fire Loss Prevention Engineer Relationship Specialty Start Date End Date José Miguel Mccrary MD [address] [address] PCP - General 07/20/19 documented as of this encounter
--- OUTSIDE RECORDS SUMMARY | 2025-02-26 15:15 | XMS_ITS ---
Author Organization [facility] Address [address] [place] [address] Care Team Providers Care Pharmacist Assistant Name Role Phone José Miguel Mccrary MD Primary Care Provide r Anjel Marshall MD Unavailable [phone] Mason Potter MD Unavailable [phone] Jamarcus Barreto MD Unavailable [phone] Shabbir Casey MD Unavailable Active Problems [...] for Assessment & Plan (05/18/2019 9:27 AM EDUCATION OFFICER): Stable glucose control with use medication. Plan: [...] time. Assessment & Plan (05/18/2019 9:27 AM EDUCATION OFFICER): Educated the patient on the importance of smoking cessation as it relates to health benefits. 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 Will plan for follow-up in the office in 6 months with repeat noninvasive testing involving bilateral lower extremity arterial duplex, iliac duplex, SHAHLA, bilateral carotid artery duplex. Assessment & Plan (08/10/2024 9:02 AM EDUCATION OFFICER): No symptoms of claudication or rest pain. Current duplex to the right lower extremity for new baseline status post angiogram with intervention shows a patent right SFA and popliteal stent. Continue Plavix and statin therapy. Follow up in 6 months for routine surveillance with lower extremity arterial duplex and ABIs. We will also refer to [employer] for pneumatic compression pumps to help with [...] cm. Assessment & Plan (05/26/2024 9:47 AM EDUCATION OFFICER): Follow up exercise study does reveal a [...] duplex. Assessment & Plan (06/17/2020 3:22 PM EDUCATION OFFICER): Impression: Stable nondisabling claudication both lower extremities. [...] months Assessment & Plan (05/18/2019 9:26 AM EDUCATION OFFICER): Patient continues to do well status post left femoral tibial bypass graft in 2017, and right SFA stenting. Plan: Follow-up in 6 months for re-evaluation with bilateral lower extremity arterial duplex Assessment & Plan (11/14/2018 3:58 PM CDT): Impression: Patient continues do well status post left femoral to posterior tib bypass and TRY OUT PERSON stenting of his right SFA. He denies [...] 05/15/2016 Assessment & Plan (06/29/2024 12:00 PM EDUCATION OFFICER): Status post balloon angioplasty to the right [...] duplex. Assessment & Plan (06/17/2020 3:23 PM EDUCATION OFFICER): Impression: Patient recovering status post bilateral carotid endarterectomy is. He has had no neurological deficits in the interim and his carotid duplex surveillance revealed stable occlusive disease with no progressive stenosis. Plan: Recommend ongoing risk factor modifications and follow-up in 6 months for re-evaluation and repeat carotid duplex surveillance. Assessment & Plan (05/18/2019 9:26 AM EDUCATION OFFICER): Patient doing well status post bilateral carotid [...] 1,844 mGy 0 mGy 1,844 mGy DLP 7,477 mGycm 7,477 mGycm 0 mGycm
--- OUTSIDE RECORDS SUMMARY | 2025-02-26 15:15 | XMS_ITS | Clinical Summary ---
Author Organization [facility] Address [address] [place] [address] Care Team Providers Care Licensed Weigher Name Role Phone José Miguel Mccrary MD Primary Care Provider Source Comments [facility],non-owned Affiliates and Associated Physician Practices is amultiple site organization consisting of ambulatory clinics and hospital sitesin [place], [place], [place] and [place]. This disclosure is being madepursuant to the Care Everywhere program and may not contain all information available regarding this patient. 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
--- OUTSIDE RECORDS SUMMARY | 2025-02-26 15:15 | XMS_ITS | Encounter Summary ---
Author Organization [facility] Facility Care Team Providers Care Orthodontic Laboratory Technician Name Role Phone José Miguel Mccrary MD Primary Care Provide r José Miguel Mccrary MD Primary Care Provide r Anjel Marshall MD Unavailable [phone] Mason Potter MD Unavailable [phone] Jamarcus Barreto MD Unavailable [phone] Shabbir Casey MD Unavailable [phone] Encounter Details Date Type Department Care Team (Latest Contact Info) Description 11/16/2016 Orders Only [facility] CLINCONV Provider, MD Daniel [address] [place] [address] Social History Tobacco Use Types Packs/Day Years Used Date Smoking Tobacco: Never Assessed Comments:Smoking History Pac ks/day: 1 Packs Alcohol Use Standard Drinks/Week Comments Yes 0 (1 standard drink = 0.6 oz pur e alcohol) Sex and Gender Information Value Date Recorded Sex Assigned at Not on file 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:22 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 Gender Identity Not on file Sexual Orientation [...] on filedocumented in this encounter Care Teams Orthodontic Laboratory Technician Relationship Specialty Start Date End Date José Miguel Mccrary MD [address] [place] [address] PCP - General 09/29/13 12/30/20 José Miguel Mccrary MD [address] [place] [address] PCP - General Internal Medicine 12/31/20 Anjel Marshall MD [address] [place] [address] Tree Feller Operator Cardiology 12/31/20 Mason Potter MD [address] [facility] [address] [facility] [address] [place] [address] Surgeon Vascular Surgery 01/01/21 Jamarcus Barreto MD [address] [place] [address] Referring Physician Hematology 08/20/22 [place] [address] [facility] [address] [place] [address] Referring Physician Surgery 08/20/22 documented as of this encounter
--- OUTSIDE RECORDS SUMMARY | 2025-02-26 15:15 | XMS_ITS | Clinical Summary ---
Author Organization [facility] at the [facility] Office Center Address [address] [place] [address] Care Team Providers Care [employer] Member Name Role Phone José Miguel Mccrary MD Primary Care Provide r Anjel Marshall MD Unavailable [phone] Mason Potter MD Unavailable [phone] Jamarcus Barreto MD Unavailable [phone] Shabbir Casey MD Unavailable [phone] Allergies Active Allergy Reactions Criticality Noted Date [...] for Assessment & Plan (05/18/2019 9:27 AM EARLY CHILDHOOD): Stable glucose control with use medication. Plan: [...] time. Assessment & Plan (05/18/2019 9:27 AM EARLY CHILDHOOD): Educated the patient on the importance of smoking cessation as it relates to health benefits. Plan: Further management as per primary care provider Atherosclerosis of [place] of both lower extremities with [...] duplex. Assessment & Plan (08/10/2024 9:02 AM EARLY CHILDHOOD): No symptoms of claudication or rest pain. Current duplex to the right lower extremity for new baseline status post angiogram with intervention shows a patent right SFA and popliteal stent. Continue Plavix and statin therapy. Follow up in 6 months for routine surveillance with lower extremity arterial duplex and ABIs. We will also refer to [employer] for pneumatic compression pumps to help with [...] cm. Assessment & Plan (05/26/2024 9:47 AM EARLY CHILDHOOD): Follow up exercise study does reveal a [...] duplex. Assessment & Plan (06/17/2020 3:22 PM EARLY CHILDHOOD): Impression: Stable nondisabling claudication both lower extremities. [...] months Assessment & Plan (05/18/2019 9:26 AM EARLY CHILDHOOD): Patient continues to do well status post left femoral tibial bypass graft in 2017, and right SFA stenting. Plan: Follow-up in 6 months for re-evaluation with bilateral lower extremity arterial duplex Assessment & Plan (11/14/2018 3:58 PM CDT): Impression: Patient continues do well status post left femoral to posterior tib bypass and MULTIFOCAL LENS INSPECTOR stenting of his right SFA. He [...] 05/15/2016 Assessment & Plan (06/29/2024 12:00 PM EARLY CHILDHOOD): Status post balloon angioplasty to the right [...] duplex. Assessment & Plan (06/17/2020 3:23 PM EARLY CHILDHOOD): Impression: Patient recovering status post bilateral carotid endarterectomy is. He has had no neurological deficits in the interim and his carotid duplex surveillance revealed stable occlusive disease with no progressive stenosis. Plan: Recommend ongoing risk factor modifications and follow-up in 6 months for re-evaluation and repeat carotid duplex surveillance. Assessment & Plan (05/18/2019 9:26 AM EARLY CHILDHOOD): Patient doing well status post bilateral carotid [...] Encounters Date Type Department Care Team Description 02/23/2025 11:00 AM CDT Office Visit [facility] ([facility]) - [facility] Urology Critical access hospital[facility] 11th [place] [address] [place] [address] Juan Banks NP Suprapubic pain (Primary Dx) 02/20/2025 10:30 AM CDT Office Visit [facility] Oncology [facility] Floor [address] [place] [address] Ryanne Copeland MD Hepatocellular carcinoma (HCC) (Primary Dx); Penile pain 02/20/2025 9:30 AM CDT Lab [facility] Oncology Lab [facility] [address] [place] [address] Hepatocellular carcinoma (HCC) 02/20/2025 8:45 AM CDT Clinical Support [facility] - Lab Collection [address] 5 [place] [address] Hepatocellular carcinoma (HCC) 02/20/2025 7:50 AM CDT - 02/20/2025 11:59 PM CDT Hospital Encounter [facility] - [place] [address] [place] [address] Hepatocellular carcinoma (HCC) Discharge Disposition: Discharge to home or self care 02/07/2025 8:45 AM CDT Office Visit [facility] Vascular and Vein Surgery [address] [facility] [address] [place] [address] Rula Antonio PA Atherosclerosis of [place] artery of both lower extremities with intermittent claudication (Primary Dx); Mixed hyperlipidemia; Essential hypertension; Aftercare following surgery of the circulatory system; Bilateral carotid artery stenosis 01/31/2025 9:45 AM CDT - 01/31/2025 11:59 PM CDT Hospital Encounter [facility] Office Building [address] [place] [id number] Aftercare following surgery of the circulatory system Discharge Disposition: Discharge to home or self care 01/31/2025 9:44 AM CDT - 01/31/2025 11:59 PM CDT Hospital Encounter [facility] Medical Office Building [address] [place] [address] Aftercare following surgery of the circulatory system Discharge Disposition: Discharge to home or self care 01/30/2025 Telephone [facility] On[facility] [address] [place] [address] Sangeetha Dan RN from Last 3 Months Immunizations Immunization Administration Dates Next Due Influenza LAIV (Nasal) 05/06/2020 Influenza, Quadrivalent, Hig h Dose, Preservative Free, Intrr 05/06/2020 Influenza, Quadrivalent, Split, Intramuscular Influenza, Trivalent, High D ose, Split, Preservative Free, Intramuscular 05/31/2019,05/18/2018 Pfizer SARS-CoV-2 Monovalent Vaccination (12+ Yrs) PURPLE 10/02/2020,09/05/2020 Pneumococcal Conjugate PCV 13 05/18/2018 Pneumococcal Polysaccharide PPV23 05/31/2019 Surgical History Surgery Date Site/Laterality Comments CARDIAC CATHETERIZATION 2018 SKIN CANCER EXCISION x 3 on face, last procedure 11/2020 SINUS SURGERY at age 56 TONSILLECTOMY age 56 w/sinus surgery CAROTID ENDARTERECTOMY 08/17/2016 Right VASCULAR SURGERY left leg procedures x 2, right leg x 1 w/stent COLONOSCOPY about 2016 CARDIAC VALVE REPLACEMENT aortic valve replacement 2019 EYE SURGERY cataracts removed bilat. early 2020 ILIAC ARTERY STENT 01/09/2021 Right RT TOMY STENT, LT EIA STENT CAROTID ENDARTERECTOMY 06/25/2016 Left ANGIOPLASTY 06/12/2024 Right Aortogram, selective LT angiogram. BA RT POP, BA RT SFA. Medical History Medical History Date Comments Hypertension Hypertension Peripheral vascular disease [place] pheral vascular disease Obesity Type 2 diabetes mellitus Poor historian pt unsure of med ical history, current physicians; states he has a lung and kidney Dr, doesn't know names Wears glasses reading glasses History of gout History of skin cancer x 3 episo ron to face Sleep apnea no CPAP Carotid artery stenosis bilatera l SEE SURGERY Depression no longer takes meds ROBINSON (hard of hearing) ROBINSON GERD (gastroesophageal reflux disease) MANAGED WITH MEDS [...] Date Smoking Tobacco: Every Day Cigarettes 2 70.6 Started: 1953 Passive Smoke Exposure: Current Smokeless [...] on file 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:22 AM EARLY CHILDHOOD Gender Identity Not on file Sexual Orientation Not on file Obstetrics History Last Filed Vital Signs Vital Sign Reading Time Taken Comments Blood Pressure 178/65 02/20/2025 9:58 AM CDT First bp was 180/89 Second bp was 181/85 Third bp was 181/76 Pulse 85 02/20/2025 9:58 AM CDT Temperature 36.3 C (97.4 F) 02/20/2025 9:58 AM CDT Respiratory Rate 18 02/20/2025 9:58 AM CDT Oxygen Saturation 97% 02/20/2025 9:5 8 AM CDT Inhaled Oxygen Concentration - - Weight 84.2 kg (185 lb 9.6 oz) 02/20/2025 9:58 AM CDT Height 176.4 cm (5' 9.45) 02/20/2025 9 :58 AM CDT Body Mass Index 27.06 02/20/2025 9:58 AM CDT Plan of Treatment Health Maintenance Due Date [...] 05/18/2024 11/16/2023, 05/0 03/2017, 06/16/2016 Influenza Vaccine (#1) 2025 , 05/06/2020, 05/31/2019, Additional history exists Fall Risk Assessment 06/22/2025 06/22/2024 eGFR 02/20/2026 02/20/2025, 11/09, 08/22/2024, Additional history exists Pneumococcal vaccine 65+ Completed 05/31/2019, 01/2018 Abdominal Aortic Aneurysm (A AA) Screen Completed 02/20/2025, 08/17/2024, 05/11/2024, Additional history exists Medical Devices Implanted Type Area Laminating Machine Feeder Device Identifier Shelf Expiration Date Model / Serial / Lot [employer] Zakiya [id number] Ml 6mm 80mm 130cm Drug Elute Delivery System Stent Vascular - [id number] Implanted:Qty: 1 on 01/01/2021 by Mason Potter MD at [facility] [employer] Zakiya 07/30/2022 [id number] / / [id number] Bard Peripheral V[employer] [id number] E-[id number] Safe Performaxx 8mm 6fr 60mm 80cm Delivery System - [id number] Implanted:Qty: 1 on 01/01/2021 by Mason Potter MD at [facility] [employer] [id number] 02/08/2023 [id number] / / [id number] [employer]ipheral [employer] [id number] Lifestream 8mm 26mm 80cm Balloon Expandable Low Profile Cover - [id number] Implanted:Qty: 1 on 01/09/2021 by Mason Potter MD at [facility] [employer] 03/11/2023 [id number] / / [id number] Torres Vascular 13263-06 Perclose 6fr Suture Mediate Knot Push Vascular Device Closure - [id number] Implanted:Qty: 1 on 01/09/2021 by Mason Potter MD at [facility] [employer] 10/09/2022 [id number] / / [id number] [employer]ipheral [employer] [id number] E-Luminexx Safe Performaxx 8mm 6fr 80mm 80cm Delivery System - [id number] Implanted:Qty: 1 on 01/09/2021 by Mason Potter MD at [facility] [employer] 04/29/2021 [id number] / / [id number] Torres Vascular System Closure Repair Femoral Artery Suture Mediated Perclose Prostyle 50082-23 - [id number] Implanted:Qty: 1 on 06/12/2024 by Mason Potter MD at [facility] [employer] 02/08/2026 [id number] / / [id number] Procedures Procedure Name Priority Date/Time Associated Diagnosis Comments EGFR Routine 02/20/2025 9:00 AM CDT Hepatocellular carcinoma (HCC) DIFFERENTIAL AUTO Routine 02/20/2025 9:0 0 AM CDT Hepatocellular carcinoma (HCC) CBC WITH AUTO DIFFERENTIAL Routine 02/20/2025 9:00 AM CDT Hepatocellular carcinoma (HCC) COMPREHENSIVE METABOLIC PANEL Routine 02/20/2025 9:00 AM CDT Hepatocellular carcinoma (HCC) [id number], TUMOR MARKER Routine 02/20/2025 9:00 AM CDT Hepatocellular carcinoma (HCC) CT CHEST ABDOMEN PELVIS W CONTRAST Schedule Routine, Read Routine (OP Routine) 02/20/2025 8:15 AM CDT Hepatocellular carcinoma (HCC) POCT CREATININE - DEVICE Routine 02/20/2025 8:02 AM CDT US SHAHLA Schedule Routine, Read Routine (OP Routine) 01/31/2025 3:20 PM CDT Aftercare following surgery of the circulatory system VL US ARTERIAL DUPLEX LOWER EXTREMITY BILATERAL Schedule Routine, Read Routine (OP Routine) 01/31/2025 3:20 PM CDT Aftercare following surgery of the circulatory system HEMOGLOBIN A1C STAT 11/16/2023 3:24 AM CDT from Last 3 Months or Most Recently Relevant to Health Maintenance Results * (ABNORMAL) eGFR (02/20/2025 9:00 AM CDT) Pathologist [facility] eGFR 37(L) >=60 mL/min/1. 73 m2 Comment: Interpretive Data [...] interpretive data was last reviewed 2021. Blood 02/20/2025 9:00 AM CDT 02/20/2025 9:06 AM CDT [facility]itt[facility] Copeland MD LAB BLOOD ORDERABLES Neha l Result [facility] [place] [address] * (ABNORMAL) Differential, auto (02/20/2025 9:00 AM CDT) Pathologist [facility] Neutrophil abs 5.67 1.50 - 6.50 K/cumm Comment:Testing performed by : [facility], [address] [place] [phone] Lymphocyte abs 0.65(L) 0.80 - 3.30 K/cumm [facility] Comment:Testing performed by : [facility], [address] [place] [phone] Monocyte abs 0.78 0.20 - 0.80 K/cumm [facility] Comment:Testing performed by : [facility], [address] [place] [phone] Eosinophil abs 0.14 0.00 - 0.50 K/cumm [facility] Comment:Testing performed by : [facility], [address] [place] [phone] Basophil abs 0.04 0.00 - 0.10 K/cumm [facility] Comment:Testing performed by : [facility], [address] [place] [phone] Neutrophil pct 77.9 % [facility] Comment: Interpretive Data Percent cell count reference ranges are not reported, since discordance with absolute values may lead to misinterpretation of CBC data. Current Interpretive Data was last revised on 2017. Testing performed by: [facility], [address] [place] [phone] Lymphocyte pct 9.0 % [facility] Comment: Interpretive Data Percent cell count reference ranges are not reported, since discordance with absolute values may lead to misinterpretation of CBC data. Current Interpretive Data was last revised on 2017. Testing performed by: [facility], [address] [place] [phone] Monocyte pct 10.7 % [facility] Comment: Interpretive Data Percent cell count reference ranges are not reported, since discordance with absolute values may lead to misinterpretation of CBC data. Current Interpretive Data was last revised on 2017. Testing performed by: [facility], [address] [place] [phone] Eosinophil pct 1.9 % [facility] Comment: Interpretive Data Percent cell count reference ranges are not reported, since discordance with absolute values may lead to misinterpretation of CBC data. Current Interpretive Data was last revised on 2017. Testing performed by: [facility], [address] [place] [phone] Basophil pct 0.6 % [facility] Comment: Interpretive Data Percent cell count reference ranges are not reported, since discordance with absolute values may lead to misinterpretation of CBC data. Current Interpretive Data was last revised on 2017. Testing performed by: [facility], [address] [place] [phone] Blood 02/20/2025 9:00 AM CDT 02/20/2025 9:03 AM CDT Moh'D M Th Dinorah DO LAB BLOOD ORDERABLES Neha l Result [facility] [place] [address] * (ABNORMAL) CBC with auto differential (02/20/2025 9:00 AM CDT) WBC 7.27 3.80 - 9.90 K/cumm Comment:Testing performed by : [facility], [address] [place] [address] Hgb 11.6(L) 13.0 - 17.5 g/dL [facility] Comment:Testing performed by : [facility], [address] [place] [address] Hct 34.7(L) 38.9 - 50.3 % [facility] Comment:Testing performed by : [facility], [address] [place] [address] Plt 193 150 - 400 K/cumm [facility] Comment:Testing performed by : [facility], [address] [place] [address] MPV 7.4 6.8 - 10.4 fL [facility] Comment:Testing performed by : [facility], [address] [place] [address] RBC 3.61(L) 4.30 - 5.80 M/cumm [facility] Comment:Testing performed by : [facility], [address] [place] [address] MCV 96.1 81.3 - 96.4 fL [facility] Comment:Testing performed by : [facility], [address] [place] [address] MCH 32.1 27.1 - 33.3 pg [facility] Comment:Testing performed by : [facility], [address] [place] [address] MCHC 33.4 32.3 - 35.7 g/dL [facility] Comment:Testing performed by : [facility], [address] [place] [address] RDW CV 16.2(H) 11.1 - 14.9 % [facility] Comment:Testing performed by : [facility], [address] [place] [address] NRBC abs 0.00 0.00 - 0.01 K/cumm [facility] Comment:Testing performed by : [facility], [address] [place] [address] Blood 02/20/2025 9:00 AM CDT 02/20/2025 9:03 AM CDT [facility]Brittany M Dinorah DO LAB BLOOD ORDERABLES Neha ruiz Result [facility] Department [place] [address] * [id number], Tumor Marker (02/20/2025 9:00 AM CDT) alpha Fetoprotein 2.0 <=8.3 ng/mL Comment: Interpretive Data The Jessica [...] >1 year 0.0 8.3 ng/ml References Alexis Wiley et al. J. Ped Surg 1978;13:155-156 Josias S. et al. Clin Chem Lab Med 2018;57:783-797 Madhav Grace et al. Clin Chem 2014;2846-3147. Current interpretive data was last revised 2022. Blood 02/20/2025 9:00 AM CDT 02/20/2025 9:52 AM CDT Ryanne Copeland MD LAB BLOOD ORDERABLES Neha l Result [facility] Department [place] [address] * (ABNORMAL) Comprehensive metabolic panel (02/20/2025 9:00 AM CDT) Sodium 139 135 - 145 mmol/L Potassium, pl 3.6 3.3 - 4.9 mmol/L [facility] Chloride 107 97 - 110 mmol/L [facility] CO2 25 22 - 32 mmol/L [facility] Anion gap 7 2 - 15 mmol/L [facility] BUN 30(H) 6 - 25 mg/dL [facility] Creatinine 1.86(H) 0.80 - 1.30 mg/dL [facility] Glucose 107 70 - 199 mg/dL [facility] Comment: Interpretive Data Fasting glucose >/= 126 [...] interpretive data was last revised 2022. Calcium 8.9 8.5 - 10.3 mg/dL [facility] Bilirubin, total 0.4 0.1 - 1.2 mg/dL [facility] Protein, pl 6.4(L) 6.5 - 8.5 g/dL [facility] Albumin 3.9 3.5 - 5.0 g/dL [facility] Alk phos 61 40 - 130 Units/L [facility] ALT 14 7 - 55 Units/L [facility] AST 27 10 - 50 Units/L [facility] Blood 02/20/2025 9:00 AM CDT 02/20/2025 9:06 AM CDT us Moh'D Alfredo Copeland MD LAB BLOOD ORDERABLES Neha l Result [facility] [place] [address] * CT Chest Abdomen Pelvis W Contrast (02/20/2025 8:15 AM CDT) Anatomical Region Laterality Modality Body N/A Computed Tomogra phy 02/20/2025 9:16 AM CDT Impressions 02/20/2025 10:40 AM CDT 1. No evidence of metastatic disease in the chest, abdomen, or pelvis. 2. Stable posttreatment changes in hepatic segments 5/6. 3. Significant improvement in the previously seen right lower lung aspiration changes. Dictated by: Johanne Carreon M.D. The radiology attending physician has personally reviewed this study, and had reviewed and/or edited this written report and agrees with it. Electronically signed by: Moises Gibson M.D. Narrative 02/20/2025 10:40 AM CDT EXAMINATION: Computed tomography of the chest, abdomen and pelvis with intravenous contrast HISTORY: 71-year-old male with history of hepatocellular carcinoma status post Y90 embolization. TECHNIQUE: Transaxial computed tomographic images of the chest, abdomen and pelvis were obtained with intravenous contrast according to the standard protocol after the uneventful administration of 69 mL Opti-Ray 350 intravenous contrast. COMPARISON: 11/21/2024 and 08/17/2024 FINDINGS: Chest: The central airways are patent. Background of moderate centrilobular emphysema. Significant improvement in the mucous plugging and tree-in-bud nodularity of the right middle and lower lobe compared to the 11/21/2024 CT. There is minimal residual atelectasis and scarring. Mild dependent atelectasis. No suspicious pulmonary nodule, pleural effusion, or pneumothorax. Changes of median sternotomy and aortic valve replacement. Heart size is within normal limits. Coronary artery calcifications. Thoracic aorta calcifications. No supraclavicular, mediastinal, hilar, axillary lymphadenopathy. No pericardial effusion. The thyroid is normal. The esophagus is of normal course and caliber. Abdomen/Pelvis: Stable hypoattenuating area in liver segment 5/6 with capsular retraction that is consistent with posttreatment changes. No new hepatic lesions. The gallbladder is normal. No biliary ductal dilation. The pancreas and spleen are normal. The portal, superior mesenteric, and splenic veins are patent. The adrenals and kidneys normal. Bilateral nonobstructing renal stones. No hydronephrosis. There is diffuse bladder wall thickening likely from chronic bladder outlet obstruction. Mild prostatomegaly with calcifications. The large and small bowel are of normal caliber. Colonic diverticulosis without diverticulitis. The appendix is normal. The stomach is normal. No intraperitoneal free fluid or air. Severe atherosclerotic calcifications of the abdominal aorta. Bilateral external iliac stents. Partially imaged distal common femoral artery bypass graft, which is patent. The periportal lymph nodes appear unchanged compared to prior 08/17/2024 CT. No abdominal or pelvic lymphadenopathy. Degenerative disc disease of the lumbar spine. No suspicious osseous lesions. Procedure Note Moises Gibson MD - 02/20/2025 EXAMINATION: Computed tomography of the chest, abdomen and pelvis with intravenous contrast HISTORY: 71-year-old male with history of hepatocellular carcinoma status post Y90 embolization. TECHNIQUE: Transaxial computed tomographic images of the chest, abdomen and pelvis were obtained with intravenous contrast according to the standard protocol after the uneventful administration of 69 mL Opti-Ray 350 intravenous contrast. COMPARISON: 11/21/2024 and 08/17/2024 FINDINGS: Chest: The central airways are patent. Background of moderate centrilobular emphysema. Significant improvement in the mucous plugging and tree-in-bud nodularity of the right middle and lower lobe compared to the 11/21/2024 CT. There is minimal residual atelectasis and scarring. Mild dependent atelectasis. No suspicious pulmonary nodule, pleural effusion, or pneumothorax. Changes of median sternotomy and aortic valve replacement. Heart size is within normal limits. Coronary artery calcifications. Thoracic aorta calcifications. No supraclavicular, mediastinal, hilar, axillary lymphadenopathy. No pericardial effusion. The thyroid is normal. The esophagus is of normal course and caliber. Abdomen/Pelvis: Stable hypoattenuating area in liver segment 5/6 with capsular retraction that is consistent with posttreatment changes. No new hepatic lesions. The gallbladder is normal. No biliary ductal dilation. The pancreas and spleen are normal. The portal, superior mesenteric, and splenic veins are patent. The adrenals and kidneys normal. Bilateral nonobstructing renal stones. No hydronephrosis. There is diffuse bladder wall thickening likely from chronic bladder outlet obstruction. Mild prostatomegaly with calcifications. The large and small bowel are of normal caliber. Colonic diverticulosis without diverticulitis. The appendix is normal. The stomach is normal. No intraperitoneal free fluid or air. Severe atherosclerotic calcifications of the abdominal aorta. Bilateral external iliac stents. Partially imaged distal common femoral artery bypass graft, which is patent. The periportal lymph nodes appear unchanged compared to prior 08/17/2024 CT. No abdominal or pelvic lymphadenopathy. Degenerative disc disease of the lumbar spine. No suspicious osseous lesions. IMPRESSION: 1. No evidence of metastatic disease in the chest, abdomen, or pelvis. 2. Stable posttreatment changes in hepatic segments 5/6. 3. Significant improvement in the previously seen right lower lung aspiration changes. Dictated by: Johanne Carreon M.D. The radiology attending physician has personally reviewed this study, and had reviewed and/or edited this written report and agrees with it. Electronically signed by: Moises Gibson M.D. [facility]ittany Copeland MD IMG CT PROCEDURES Final R esult * (ABNORMAL) POCT creatinine (02/20/2025 8:02 AM CDT) Creatinine POC 1.9(H) 0.8 - 1.3 mg/dL Blood 02/20/2025 8:02 AM CDT 02/20/2025 8:02 AM CDT us Self Referral LAB POCT ORDERABLES - DEVICE Fin al Result [facility] [place] [address] * US SHAHLA (01/31/2025 3:20 PM CDT) Anatomical Region Laterality Modality Vascular N/A Ultrasound 01/31/2025 10:1 7 AM CDT Narrative 02/01/2025 8:20 AM CDT Lower Extremity Arterial Doppler Report Patient Name: SEGUNDO BUCHANAN C : 1945 Study Date: 01/31/2025 10:17:00 AM Gender: M Car Rental Clerk: MILLA GAO RVT Ref Provider: MASON POTTER Quality: Adequate Order Provider: MASON POTTER PROCEDURES: Arterial Report: Ankle - Brachial Index Doppler exam. INDICATIONS: Z48.812 Encounter for surgical aftercare following surgery on the circulatory system. HISTORY: History of prior intervention on S/P LEFT FEM-PT BPG 11/16/16, RT STENT SFA, POP, TOMY, EIA 01/10/20. STENT LEFT EIA 12/29/20. COMPARISONS: The previous exam was completed on 05/08/24. MEASUREMENTS: Right Value Left Value Rt Brachial Pressure 179 mmHg Lt Brachial Pressure 179 mmHg Rt MULTIFOCAL LENS INSPECTOR Pressure 178 mmHg Lt MULTIFOCAL LENS INSPECTOR Pressure 178 mmHg Rt DPA Pressure 162 mmHg Lt DPA Pressure 193 mmHg Rt PT SHAHLA Resting 0.99 Lt PT SHAHLA Resting 0.99 Rt DP SHAHLA Resting 0.91 Lt DP SHAHLA Resting 1.08 FINDINGS: Right Posterior Tibial Artery Analysis: The posterior tibial waveform is biphasic. Right Dorsalis Pedis Artery Analysis: The dorsalis pedis waveform is biphasic. Left Posterior Tibial Artery Analysis: The posterior tibial waveform is triphasic. Left Dorsalis Pedis Artery Analysis: The dorsalis pedis waveform is triphasic. CONCLUSIONS: 1. Ankle-brachial index of 0.9-1.3 is within normal limits in the bilateral lower extremities. ATTESTATION: I have reviewed and interpreted the pertinent images and measurements of this study. I attest to the conclusions in the final report that is provided above. Electronically Signed By: Chele Potter MD 02/01/2025 8:18:25 AM CDT Procedure Note Chele Potter MD - 02/01/2025 Lower Extremity Arterial Doppler Report Patient Name: SEGUNDO BUCHANAN C : 1945 Study Date: 01/31/2025 10:17:00 AM Gender: M Car Rental Clerk: MILLA GAO RVT Ref Provider: MASON POTTER Quality: Adequate Order Provider: MASON POTTER PROCEDURES: Arterial Report: Ankle - Brachial Index Doppler exam. INDICATIONS: Z48.812 Encounter for surgical aftercare following surgery on thecirculatory system. HISTORY: History of prior intervention on S/P LEFT FEM-PT BPG 11/16/16, RT STENT SFA,POP, TOMY, EIA 01/10/20. STENT LEFT EIA 12/29/20. COMPARISONS: The previous exam was completed on 05/08/24. MEASUREMENTS: Right Value Left Value Rt Brachial Pressure 179 mmHg Lt Brachial Pressure 179 mmHg Rt MULTIFOCAL LENS INSPECTOR Pressure 178 mmHg Lt MULTIFOCAL LENS INSPECTOR Pressure 178 mmHg Rt DPA Pressure 162 mmHg Lt DPA Pressure 193 mmHg Rt PT SHAHLA Resting 0.99 Lt PT SHAHLA Resting 0.99 Rt DP SHAHLA Resting 0.91 Lt DP SHAHLA Resting 1.08 FINDINGS: Right Posterior Tibial Artery Analysis: The posterior tibial waveform is biphasic. Right Dorsalis Pedis Artery Analysis: The dorsalis pedis waveform is biphasic. Left Posterior Tibial Artery Analysis: The posterior tibial waveform is triphasic. Left Dorsalis Pedis Artery Analysis: The dorsalis pedis waveform is triphasic. CONCLUSIONS: 1. Ankle-brachial index of 0.9-1.3 is within normal limits in thebilateral lower extremities. ATTESTATION: I have reviewed and interpreted the pertinent images and measurements ofthis study. I attest to the conclusions in the final report that is provided above. Electronically Signed By: Chele Potter MD 02/01/2025 8:18:25 AM CDT us Mason Potter MD IMG US PROCEDURES Final Re sult * US Arterial Duplex Lower Extremity Bilateral (01/31/2025 3:20 PM CDT) Anatomical Region Laterality Modality Vascular Bilateral Ultrasound 01/31/2025 10:1 4 AM CDT Narrative 02/01/2025 8:20 AM CDT Lower Extremity Arterial Duplex Report Patient Name: SEGUNDO BUCHANAN C : 1945 (79y 8m) Gender: M Study Date: 01/31/2025 10:14:37 AM Ht(Inch): Wt(Lb): BSA: Car Rental Clerk: Milla Titus Provider: MASON POTTER Quality: Adequate Ref Provider: MASON POTTER PROCEDURES: Arterial Report: A non-invasive vascular imaging study of the bilateral lower extremity arteries was performed using B-mode ultrasound, color flow, and spectral Doppler. A non-invasive vascular imaging study of the left lower extremity arteries and bypass graft was performed using B-mode ultrasound, color flow, and spectral Doppler. A non-invasive vascular imaging study of the right lower extremity arteries and stent was performed using B-mode ultrasound, color flow, and spectral Doppler. INDICATIONS: Z48.812 Encounter for surgical aftercare following surgery on the circulatory system. HISTORY: The patient had a previous vascular surgery on LEFT FEM-PT BPG 11/16/16; BA/STENT RT POP, TOMY, EIA, 01/10/20. STENT R EIA 12/29/20. COMPARISONS: The previous exam was completed on 05/08/24. MEASUREMENTS: Right Value Left Value Rt Profunda Prx PSV 65.80 cm/sec Lt GROUND WATER TECHNICIAN Prx PSV 140.00 cm/sec Rt SFA Prx PSV 178.80 cm/sec Lt Profunda Prx PSV 82.10 cm/sec Rt SFA Mid PSV 210.20 cm/sec Rt SFA Dst PSV 100.30 cm/sec Rt Pop Prx PSV 124.70 cm/sec Rt Pop Dst PSV 76.00 cm/sec GRAFTS: Left Value Location FM-PT Lt BPG Inflow PSV 140.00 cm/sec Lt Anast Prx PSV 103.00 cm/sec Lt BPG Prx PSV 81.00 cm/sec Lt BPG Mid PSV 88.00 cm/sec Lt BPG Dst PSV 121.00 cm/sec Lt Anast Dst PSV 172/14 cm/sec Lt BPG Outflow PSV 126.00 cm/sec FINDINGS: Right: STENT NOT CEARLY VISUALIZED. SHADOWING AND PLAQUE PRESENT. Bypass Graft 1: The bypass graft is located in the LEFT PROX FEM TO PT. Patent lower extremity bypass graft with no evidence of stenosis. DIST BPG 6.9 MM AT VISIBLY PULSATILE SITE. CONCLUSION: 1. Patent left femoral artery to posterior tibial artery bypass. No evidence of stenosis. 2. Right superficial femoral artery with moderate 50-75% stenosis. Right lower extremity stent not visualized. ATTESTATION: I have reviewed and interpreted the pertinent images and measurements of this study. I attest to the conclusions in the final report that is provided above. Electronically Signed By: Chele Potter MD 02/01/2025 8:18:11 AM CDT Procedure Note Chele Potter MD - 02/01/2025 Lower Extremity Arterial Duplex Report Patient Name: SEGUNDO BUCHANAN C : 1945 (79y 8m) Gender: M Study Date: 01/31/2025 10:14:37 AM Ht(Inch): Wt(Lb): BSA: Car Rental Clerk: Milla Titus Provider: MASON POTTER Quality: Adequate Ref Provider: MASON POTTER PROCEDURES: Arterial Report: A non-invasive vascular imaging study of the bilaterallower extremity arteries was performed using B-mode ultrasound, color flow, and spectralDoppler. A non-invasive vascular imaging study of the left lower extremity arteriesand bypass graft was performed using B-mode ultrasound, color flow, and spectral Doppler. Anon-invasive vascular imaging study of the right lower extremity arteries and stent wasperformed using B-mode ultrasound, color flow, and spectral Doppler. INDICATIONS: Z48.812 Encounter for surgical aftercare following surgery on thecirculatory system. HISTORY: The patient had a previous vascular surgery on LEFT FEM-PT BPG 11/16/16;BA/STENT RT POP, TOMY, EIA, 01/10/20. STENT R EIA 12/29/20. COMPARISONS: The previous exam was completed on 05/08/24. MEASUREMENTS: Right Value Left Value Rt Profunda Prx PSV 65.80 cm/sec Lt GROUND WATER TECHNICIAN Prx PSV 140.00 cm/sec Rt SFA Prx PSV 178.80 cm/sec Lt Profunda Prx PSV 82.10 cm/sec Rt SFA Mid PSV 210.20 cm/sec Rt SFA Dst PSV 100.30 cm/sec Rt Pop Prx PSV 124.70 cm/sec Rt Pop Dst PSV 76.00 cm/sec GRAFTS: Left Value Location FM-PT Lt BPG Inflow PSV 140.00 cm/sec Lt Anast Prx PSV 103.00 cm/sec Lt BPG Prx PSV 81.00 cm/sec Lt BPG Mid PSV 88.00 cm/sec Lt BPG Dst PSV 121.00 cm/sec Lt Anast Dst PSV 172/14 cm/sec Lt BPG Outflow PSV 126.00 cm/sec FINDINGS: Right: STENT NOT CEARLY VISUALIZED. SHADOWING AND PLAQUE PRESENT. Bypass Graft 1: The bypass graft is located in the LEFT PROX FEM TO PT.Patent lower extremity bypass graft with no evidence of stenosis. DIST BPG 6.9 MM ATVISIBLY PULSATILE SITE. CONCLUSION: 1. Patent left femoral artery to posterior tibial artery bypass. Noevidence of stenosis. 2. Right superficial femoral artery with moderate 50-75% stenosis. Rightlower extremity stent not visualized. ATTESTATION: I have reviewed and interpreted the pertinent images and measurements ofthis study. I attest to the conclusions in the final report that is provided above. Electronically Signed By: Chele Potter MD 02/01/2025 8:18:11 AM CDT us Mason Potter MD IMG US PROCEDURES Final Re sult * (ABNORMAL) Hemoglobin A1c (11/16/2023 3:24 AM CDT) Hgb A1C 8.5(H) 4.0 - 5.6 % Estimated Average Glucose 197 mg/dL [facility] Comment: The ADA recommends reporting an estimated [...] BLOOD ORDERABLES Final Result Performing Organization Address City/State/[facility] Co de Phone Number [facility] Department [place] [address] from Last 3 Months or Most Recently Relevant to Health Maintenance Insurance [facility] AET MEDICARE AETNA [facility] AETNA MEDICARE GOLD AETNA MEDICARE GOLD Advance Directives For more information, please contact: [phone] Documents on File Type Date Recorded Patient Serology Teacher Expl anation ADVANCE DIRECTIVE 11/10/2016 12:00 AM POWER OF EDITING CLERK FINANCIAL/MEDICAL * Full Code (Latest Code Status on File) Date Activated Date Inactivated Comments 11/16/2023 1:57 AM 11/17/2023 8:00 PM Care Teams [employer] Member Relationship Specialty Start Date End Date José Miguel Mccrary MD [address] [place] [address] PCP - General Internal Medicine 12/31/20 Anjel Marshall MD [address] [place] [address] Gang Hemstitching Machine Operator Cardiology 12/31/20 Mason Potter MD [address] [facility] [address] [place] [address] Surgeon Vascular Surgery 01/01/21 Jamarcus Barreto MD [address] [place] [address] Referring Physician Hematology 08/20/22 [place] [address] [facility] [address] [place] [address] Referring Physician Surgery 08/20/22
--- OUTSIDE RECORDS SUMMARY | 2025-02-26 15:15 | XMS_ITS | Encounter Summary ---
Author Organization [facility] Care Team Providers Care It Sales Consultant Name Role Phone José Miguel Mccrary MD Primary Care Provide r José Miguel Mccrary MD Primary Care Provide r Anjel Marshall MD Unavailable [phone] Mason Potter MD Unavailable [phone] Jamarcus Barreto MD Unavailable [phone] Shabbir Casey MD Unavailable [phone] Encounter Details Date Type Department Care Team (Latest Contact Info) Description 04/27/2016 Orders Only [facility] CLINCONV ProviderDaniel MD [address] [place] [address] Social History Tobacco Use Types Packs/Day Years Used Date Smoking Tobacco: Never Assessed Comments:Smoking History Pac ks/day: 1 Packs Alcohol Use Standard Drinks/Week Comments Yes 0 (1 standard drink = 0.6 oz pur e alcohol) Sex and Gender Information Value Date Recorded Sex Assigned at Not on file 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:22 AM BODY SHOP ESTIMATOR Gender Identity Not on file Sexual [...] on filedocumented in this encounter Care Teams It Sales Consultant Relationship Specialty Start Date End Date José Miguel Mccrary MD [address] [place] [address] PCP - General 09/29/13 12/30/20 José Miguel Mccrary MD [address] [place] [address] PCP - General Internal Medicine 12/31/20 Anjel Marshall MD [address] [place] [address] Flight Engineer Performance Qualified Cardiology 12/31/20 Mason Potter MD [address] [facility] [address] [place] [address] Surgeon Vascular Surgery 01/01/21 Jamarcus Barreto MD [address] [place] [phone] Referring Physician Hematology 08/20/22 [place] [address] [address] [place] [phone] Referring Physician Surgery 08/20/22 documented as of this encounter
--- OUTSIDE RECORDS SUMMARY | 2025-02-26 15:15 | XMS_ITS | Encounter Summary ---
Author Organization [facility] Address [address] [place] [address] Care Team Providers Care Specifications Writer Name Role Phone José Miguel Mccrary MD Primary Care Provider [phone] Encounter Details Date Type Department Care Team (Late st Contact Info) Description 06/11/2023 Lab Requisition [facility] - DermPath Lab [address] [facility] [place] [phone] Kaity Burks MD [address] [place] [address] [place] [phone] Neoplasm of uncertain behavior of skin Social History Tobacco Use Types Packs/Day Years Used Date Smoking Tobacco: Never Assessed Sex and Gender Information Value Date Recorded Sex Assigned at Not on file Legal Sex Male 6:49 AM ANIMAL KILLER Gender Identity Not on file Sexual Orientation Not on file documented as of this encounter Plan of Treatment Not on file documented as of this encounter Procedures Procedure Name Priority Date/Time Associated Diagnosis Comments DERMATOPATHOLOGY Routine 06/11/2023 12:0 0 AM ANIMAL KILLER Neoplasm of uncertain behavior of skin documented in this encounter Results * DERMATOPATHOLOGY (06/11/2023 12:00 AM ANIMAL KILLER) Case Report Dermatopathology Report Case: [id number] Authorizing Provider: Kaity Burks MD Collected: 06/11/2023 12:00 AM Ordering Location: [facility] DermPath Lab Received: 06/14/2023 06:37 AM Pathologist: Alfredo Aguirre MD Specimen: Skin, right helix 3 4:45 PM [facility] DERMATOPATHOLOGY [facility]ORATORY Final Diagnosis Specimen A. SKIN, right helix: DERMAL SCAR - RESIDUAL TUMOR IS NOT IDENTIFIED (L90.5) 3 4:45 PM [facility] DERMATOPATHOLOGY LABORATORY at [address] ANIMAL KILLER Clinical History Squamous Cell Carcinoma s Scar, ? Residual SCC ? 3 4:45 PM [facility] DERMATOPATHOLOGY LABORATORY Gross Description Specimen A: Received is one formalin filled container labeled with the patient's name and designated right helix. The specimen consists of a shave biopsy measuring 9x8x2 mm. Jar 0. 3 4:45 PM [facility] DERMATOPATHOLOGY LABORATORY Microscopic Description Specimen A. SKIN, right helix: There are fibroblasts and collagen bundles oriented parallel to the skin surface. There are elongated blood vessels, some of which are oriented perpendicular to the skin surface. No residual tumor is identified and is confirmed with BerEp4. 3 4:45 PM [facility] DERMATOPATHOLOGY LABORATORY Disclaimer An external and internal positive and negative controls are appropriate for the histochemical, immunohistochemical and immunofluorescence stain(s) in this case (if any), except where stated explicitly. The performance characteristics of the stain(s) cited in this report were developed and its performance characteristic determined by the Dermatopathology Laboratory at [facility], directed by Dr. Helene Aguirre. These tests need not be, and therefore are not, approved by the [place] Food and Drug Administration. The tests are used for clinical purposes. Billing Codes Specimen Charges Stain Charges 17609 1 17298 1 3 4:45 PM [facility] DERMATOPATHOLOGY LABORATORY Embedded Images 3 4:45 PM [facility] DERMATOPATHOLOGY LABORATORY Pathology/Cytolog y TISSUE SPECIMEN FROM SKIN / Unknown 06/11/2023 06/14/2023 6:37 AM ANIMAL KILLER us Kaity Burks MD LAB - PATHOLOGY/CYTOLOGY ORDERAB LES Final Result DERMATOPATHOLOGY LABORATORY [facility] - Department of Dermatology [address], [address] [phone] documented in this encounter Visit Diagnoses Diagnosis Neoplasm of uncertain behavior of skin documented in this encounter Care Teams Specifications Writer Relationship Specialty Start Date End Date José Miguel Mccrary MD [facility] [address] PCP - General 07/20/19 documented as of this encounter
--- OUTSIDE RECORDS SUMMARY | 2025-02-26 15:15 | XMS_ITS | Encounter Summary ---
Author Organization [facility] Care Team Providers Care System Integration Engineer Name Role Phone José Miguel Mccrary MD Primary Care Provide r José Miguel Mccrary MD Primary Care Provide r Anjel Marshall MD Unavailable [phone] Mason Potter MD Unavailable [phone] Jamarcus Barreto MD Unavailable [phone] Shabbir Casey MD Unavailable [phone] Encounter Details Date Type Department Care Team (Latest Contact Info) Description 11/06/2016 Orders Only [facility] CLINCONV ProviderDaniel MD [address] [place] [address] Social History Tobacco Use Types Packs/Day Years Used Date Smoking Tobacco: Never Assessed Comments:Smoking History Pac ks/day: 1 Packs Alcohol Use Standard Drinks/Week Comments Yes 0 (1 standard drink = 0.6 oz pur e alcohol) Sex and Gender Information Value Date Recorded Sex Assigned at Not on file 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:22 AM ELEMENTARY PRINCIPAL Gender Identity Not on file Sexual Orientation [...] on filedocumented in this encounter Care Teams System Integration Engineer Relationship Specialty Start Date End Date José Miguel Mccrary MD [address] [place] [address] PCP - General 09/29/13 12/30/20 José Miguel Mccrary MD [address] [place] [address] PCP - General Internal Medicine 12/31/20 Anjel Marshall MD [address] [place] [address] [place] Cardiology 12/31/20 Mason Potter MD [address] [facility] [address] [place] [address] Surgeon Vascular Surgery 01/01/21 Jamarcus Barreto MD [address] [place] [phone] Referring Physician Hematology 08/20/22 [place] [address] [facility] [facility] [address] [place] [phone] Referring Physician Surgery 08/20/22 documented as of this encounter
--- OUTSIDE RECORDS SUMMARY | 2025-02-26 15:15 | XMS_ITS | Encounter Summary ---
Author Organization [facility] Care Team Providers Care Sample Color Maker Name Role Phone José Miguel Mccrary MD Primary Care Provide r José Miguel Mccrary MD Primary Care Provide r Anjel Marshall MD Unavailable [phone] Mason Potter MD Unavailable [phone] Jamarcus Barreto MD Unavailable [phone] Shabbir Casey MD Unavailable [phone] Encounter Details Date Type Department Care Team (Latest Contact Info) Description 08/05/2016 Orders Only [facility] CLINCONV ProviderDaniel MD [address] [place] [address] Social History Tobacco Use Types Packs/Day Years Used Date Smoking Tobacco: Never Assessed Comments:Smoking History Pac ks/day: 1 Packs Alcohol Use Standard Drinks/Week Comments Yes 0 (1 standard drink = 0.6 oz pur e alcohol) Sex and Gender Information Value Date Recorded Sex Assigned at Not on file 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:22 AM FACILITIES PAINTER Gender Identity Not on file Sexual Orientation Not on file documented as of this encounter Plan of Treatment Not on file documented as of this encounter Procedures Procedure Name Priority Date/Time Associated Diagnosis Comments PROCEDURE - RESULT 08/05/2016 12 :00 AM FACILITIES PAINTER documented in this encounter Results * PROCEDURE - RESULT (08/05/2016 12:00 AM FACILITIES PAINTER) Narrative 08/05/2016 12:00 AM FACILITIES PAINTER Ordered by an unspecified provider. Historical Provider Final Res ult documented in this encounter Visit Diagnoses Not on filedocumented in this encounter Care Teams Sample Color Maker Relationship Specialty Start Date End Date José Miguel Mccrary MD [address] [place] [address] PCP - General 09/29/13 12/30/20 José Miguel Mccrary MD [address] [place] [address] PCP - General Internal Medicine 12/31/20 Anjel Marshall MD [address] [place] [address] Classifier Operator Cardiology 12/31/20 Mason Potter MD [address] [address] [facility] [address] [place] [address] Surgeon Vascular Surgery 01/01/21 Jamarcus Barreto MD [address] [place] [address] Referring Physician Hematology 08/20/22 [place] [address] [facility] [address] [place] [phone] Referring Physician Surgery 08/20/22 documented as of this encounter
--- OUTSIDE RECORDS SUMMARY | 2025-02-26 15:15 | XMS_ITS | Encounter Summary ---
Author Organization [facility] Facility Care Team Providers Care Arc Welder Name Role Phone José Miguel Mccrary MD Primary Care Provide r José Miguel Mccrary MD Primary Care Provide r Anjel Marshall MD Unavailable [phone] Mason Potter MD Unavailable [phone] Jamarcus Barreto MD Unavailable [phone] Shabbir Casey MD Unavailable [phone] Encounter Details Date Type Department Care Team (Latest Contact Info) Description 06/25/2016 Orders Only [facility] CLINCONV ProviderDaniel MD [address] [place] [address] Social History Tobacco Use Types Packs/Day Years Used Date Smoking Tobacco: Never Assessed Comments:Smoking History Pac ks/day: 1 Packs Alcohol Use Standard Drinks/Week Comments Yes 0 (1 standard drink = 0.6 oz pur e alcohol) Sex and Gender Information Value Date Recorded Sex Assigned at Not on file 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:22 AM REFRIGERATION BRAZER/SOLDERER Gender Identity Not on file Sexual Orientation Not on file documented as of this encounter Plan of Treatment Not on file documented as of this encounter Procedures Procedure Name Priority Date/Time Associated Diagnosis Comments PROCEDURE - RESULT 06/09/2016 12 :00 AM REFRIGERATION BRAZER/SOLDERER documented in this encounter Results * PROCEDURE - RESULT (06/09/2016 12:00 AM REFRIGERATION BRAZER/SOLDERER) Narrative 06/09/2016 12:00 AM REFRIGERATION BRAZER/SOLDERER Ordered by an unspecified provider. Historical Provider Final Res ult documented in this encounter Visit Diagnoses Not on filedocumented in this encounter Care Teams Arc Welder Relationship Specialty Start Date End Date José Miguel Mccrary MD [address] [place] [address] PCP - General 09/29/13 12/30/20 José Miguel Mccrary MD [address] [place] [address] PCP - General Internal Medicine 12/31/20 Anjel Marshall MD [address] [place] [address] Specialist Physicians Cardiology 12/31/20 Mason Potter MD [address] [facility] [address] [facility] [address] [place] [address] Surgeon Vascular Surgery 01/01/21 Jamarcus Barreto MD [address] [place] [address] Referring Physician Hematology 08/20/22 [place] [address] [facility] [address] [place] [phone] Referring Physician Surgery 08/20/22 documented as of this encounter
--- OUTSIDE RECORDS SUMMARY | 2025-02-26 15:15 | XMS_ITS | Encounter Summary ---
Author Organization [facility] Facility Care Team Providers Care Building Appraiser Name Role Phone José Miguel Mccrary MD Primary Care Provide r José Miguel Mccrary MD Primary Care Provide r Anjel Marshall MD Unavailable [phone] Mason Potter MD Unavailable [phone] Jamarcus Barreto MD Unavailable [phone] Shabbir Casey MD Unavailable [phone] Encounter Details Date Type Department Care Team (Latest Contact Info) Description 08/17/2016 Orders Only [facility]G CLINCONV ProviderDaniel MD [address] [place] [address] Social History Tobacco Use Types Packs/Day Years Used Date Smoking Tobacco: Never Assessed Comments:Smoking History Pac ks/day: 1 Packs Alcohol Use Standard Drinks/Week Comments Yes 0 (1 standard drink = 0.6 oz pur e alcohol) Sex and Gender Information Value Date Recorded Sex Assigned at Not on file 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:22 AM GAME MODERATOR Gender Identity Not on file Sexual Orientation Not on file documented as of this encounter Plan of Treatment Not on file documented as of this encounter Procedures Procedure Name Priority Date/Time Associated Diagnosis Comments SCAN - PATHOLOGY 08/20/2016 12:0 0 AM GAME MODERATOR documented in this encounter Results * SCAN - PATHOLOGY (08/20/2016 12:00 AM GAME MODERATOR) Narrative 08/20/2016 12:00 AM GAME MODERATOR Ordered by an unspecified provider. Historical Provider Final Res ult documented in this encounter Visit Diagnoses Not on filedocumented in this encounter Care Teams Building Appraiser Relationship Specialty Start Date End Date José Miguel Mccrary MD [address] [place] [address] PCP - General 09/29/13 12/30/20 José Miguel Mccrary MD [address] [place] [address] PCP - General Internal Medicine 12/31/20 Anjel Marshall MD [address] [place] [address] Washtub Worker Cardiology 12/31/20 Mason Potter MD [address] [facility] [address] [facility] [address] [place] [address] Surgeon Vascular Surgery 01/01/21 Jamarcus Barreto MD [address] [place] [phone] Referring Physician Hematology 08/20/22 [place] [address] [facility] [address] [place] [address] Referring Physician Surgery 08/20/22 documented as of this encounter
--- OUTSIDE RECORDS SUMMARY | 2025-02-26 15:15 | XMS_ITS | Encounter Summary ---
Author Organization [facility] Facility Care Team Providers Care Market Research Senior Project Manager Name Role Phone José Miguel Mccrary MD Primary Care Provide r José Miguel Mccrary MD Primary Care Provide r Anjel Marshall MD Unavailable [phone] Mason Potter MD Unavailable [phone] Jamarcus Barreto MD Unavailable [phone] Shabbir Casey MD Unavailable [phone] Encounter Details Date Type Department Care Team (Latest Contact Info) Description 11/04/2016 Orders Only [facility] CLINCONV Provider, MD Daniel [address] [place] [address] Social History Tobacco Use Types Packs/Day Years Used Date Smoking Tobacco: Never Assessed Comments:Smoking History Pac ks/day: 1 Packs Alcohol Use Standard Drinks/Week Comments Yes 0 (1 standard drink = 0.6 oz pur e alcohol) Sex and Gender Information Value Date Recorded Sex Assigned at Not on file 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:22 AM COMMERCIAL RELIEF DRIVER Gender Identity Not on file Sexual [...] on filedocumented in this encounter Care Teams Market Research Senior Project Manager Relationship Specialty Start Date End Date José Miguel Mccrary MD [address] [place] [address] PCP - General 09/29/13 12/30/20 José Miguel Mccrary MD [address] [place] [address] PCP - General Internal Medicine 12/31/20 Anjel Marshall MD [address] [place] [address] Industrial Automation Engineer Cardiology 12/31/20 Mason Potter MD [address] [facility] [address] [facility] [address] [place] [address] Surgeon Vascular Surgery 01/01/21 Jamarcus Barreto MD [address] [place] [address] Referring Physician Hematology 08/20/22 [place] [address] [facility] [address] [place] [address] Referring Physician Surgery 08/20/22 documented as of this encounter
--- OUTSIDE RECORDS SUMMARY | 2025-02-26 15:16 | XMS_ITS | Encounter Summary ---
Author Organization [facility] Facility Care Team Providers Care Inventory Analyst Name Role Phone José Miguel Mccrary MD Primary Care Provide r José Miguel Mccrary MD Primary Care Provide r Anjel Marshall MD Unavailable [phone] Mason Potter MD Unavailable [phone] Jamarcus Barreto MD Unavailable [phone] Shabbir Casey MD Unavailable [phone] Encounter Details Date Type Department Care Team (Latest Contact Info) Description 05/18/2016 Orders Only [facility]G CLINCONV ProviderDaniel MD [address] [place] [address] Social History Tobacco Use Types Packs/Day Years Used Date Smoking Tobacco: Never Assessed Comments:Smoking History Pac ks/day: 1 Packs Alcohol Use Standard Drinks/Week Comments Yes 0 (1 standard drink = 0.6 oz pur e alcohol) Sex and Gender Information Value Date Recorded Sex Assigned at Not on file 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 Gender Identity Not on file Sexual Orientation [...] on filedocumented in this encounter Care Teams Inventory Analyst Relationship Specialty Start Date End Date José Miguel Mccrary MD [address] [place] [address] PCP - General 09/29/13 12/30/20 José Miguel Mccrary MD [address] [place] [address] PCP - General Internal Medicine 12/31/20 Anjel Marshall MD [address] [place] [address] Physician Neonatology Cardiology 12/31/20 Mason Potter MD [address] [facility] [address] [facility] [address] [place] [address] Surgeon Vascular Surgery 01/01/21 Jamarcus Barreto MD [address] [place] [phone] Referring Physician Hematology 08/20/22 [place] [address] [address] [facility] [address] [place] [phone] Referring Physician Surgery 08/20/22 documented as of this encounter
--- OUTSIDE RECORDS SUMMARY | 2025-02-26 15:16 | XMS_ITS | Encounter Summary ---
Author Organization [facility] Facility Care Team Providers Care Sewing Machine Maintenance Mechanic Name Role Phone José Miguel Mccrary MD Primary Care Provide r José Miguel Mccrary MD Primary Care Provide r Anjel Marshall MD Unavailable [phone] Mason Potter MD Unavailable [phone] Jamarcus Barreto MD Unavailable [phone] Shabbir Casey MD Unavailable [phone] Encounter Details Date Type Department Care Team (Latest Contact Info) Description 04/28/2016 Orders Only [facility] CLINCONV ProviderDaniel MD [address] [place] [address] Social History Tobacco Use Types Packs/Day Years Used Date Smoking Tobacco: Never Assessed Comments:Smoking History Pac ks/day: 1 Packs Alcohol Use Standard Drinks/Week Comments Yes 0 (1 standard drink = 0.6 oz pur e alcohol) Sex and Gender Information Value Date Recorded Sex Assigned at Not on file 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 Gender Identity Not on file Sexual Orientation [...] on filedocumented in this encounter Care Teams Sewing Machine Maintenance Mechanic Relationship Specialty Start Date End Date José Miguel Mccrary MD [address] [place] [address] PCP - General 09/29/13 12/30/20 José Miguel Mccrary MD [address] [place] [address] PCP - General Internal Medicine 12/31/20 Anjel Marshall MD [address] [place] [address] Nurse Transplant Cardiology 12/31/20 Mason Potter MD [address] [facility] [address] [facility] [address] [place] [address] Surgeon Vascular Surgery 01/01/21 Jamarcus Barreto MD [address] [place] [phone] Referring Physician Hematology 08/20/22 [place] [address] [address] [facility] [address] [place] [phone] Referring Physician Surgery 08/20/22 documented as of this encounter
--- OUTSIDE RECORDS SUMMARY | 2025-02-26 15:16 | XMS_ITS | Encounter Summary ---
Author Organization [facility] Facility Care Team Providers Care Cotton Tier Name Role Phone José Miguel Mccrary MD Primary Care Provide r José Miguel Mccrary MD Primary Care Provide r Anjel Marshall MD Unavailable [phone] Mason Potter MD Unavailable [phone] Jamarcus Barreto MD Unavailable [phone] Shabbir Casey MD Unavailable [phone] Encounter Details Date Type Department Care Team (Latest Contact Info) Description 04/29/2016 Orders Only [facility] CLINCONV ProviderDaniel MD [address] [place] [address] Social History Tobacco Use Types Packs/Day Years Used Date Smoking Tobacco: Never Assessed Comments:Smoking History Pac ks/day: 1 Packs Alcohol Use Standard Drinks/Week Comments Yes 0 (1 standard drink = 0.6 oz pur e alcohol) Sex and Gender Information Value Date Recorded Sex Assigned at Not on file 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 Gender Identity Not on file Sexual Orientation [...] on filedocumented in this encounter Care Teams Cotton Tier Relationship Specialty Start Date End Date José Miguel Mccrary MD [address] [place] [address] PCP - General 09/29/13 12/30/20 José Miguel Mccrary MD [address] [place] [address] PCP - General Internal Medicine 12/31/20 Anjel Marshall MD [address] [place] [address] Adjunct Instructor Chemistry Cardiology 12/31/20 Mason Potter MD [address] [facility] [address] [facility] [address] [place] [address] Surgeon Vascular Surgery 01/01/21 Jamarcus Barreto MD [address] [place] [phone] Referring Physician Hematology 08/20/22 [place] [address] [address] [facility] [address] [place] [phone] Referring Physician Surgery 08/20/22 documented as of this encounter
--- OUTSIDE RECORDS SUMMARY | 2025-02-26 15:16 | XMS_ITS | Clinical Summary ---
Author Organization [facility] Address [address] [place] [address] Phone Care Team Providers Care Unit Operator Name Role Phone José Miguel Mccrary MD Primary Care Provider [phone] Allergies Active Allergy Reactions Criticality Noted Date Comments Fenofibrate 11/07/2018 Other reaction(s): Myalgias Aches and pains all over Penicillins Other (see comments) 05/07/2016 it doesn't work for me Medications aspirin EC 81 MG EC tablet 81 mg daily. Active furosemide (LASIX) 40 MG tablet 40 mg daily. 04/02/20 16 Active ketoconazole (NIZORAL) 2 % cream by Intratympanic route daily. Active metFORMIN (GLUCOPHAGE) 1000 MG tablet 1,000 mg 2 times daily. Active Multiple Vitamin (MULTI VITAMIN DAILY) tablet daily. Active pantoprazole (PROTONIX) 40 MG EC tablet 40 mg daily. 08/03/19 17 Active triamcinolone (KENALOG) 0.1 % cream by Intratympanic route 2 times daily. Active fenofibrate (TRICOR) 145 MG tablet Take 145 mg by mouth 1 (one) time each day 2 12/25/19 19 Active potassium chloride (MICRO-K) 10 MEQ CR capsule TAKE 1 CAPSULE BY MOUTH ONCE DAILY WITH FOOD 2 12/03/19 19 Active atorvastatin (LIPITOR) 80 MG tablet Take 80 mg by mouth every night 1 03/06/20 19 Active lisinopril (PRINIVIL,ZESTRI L) 5 MG tablet Take 5 mg by mouth 1 (one) time each day 06/13/20 19 Active metoprolol tartrate (LOPRESSOR) 50 MG tablet Take 50 mg by mouth 2 (two) times a day with meals 06/13/20 19 Active oxyCODONE-acetam inophen (PERCOCET) 5-325 MG per tablet Take 1 tablet by mouth every 6 (six) hours if needed for pain 11/24/19 20 Active silver sulfADIAZINE (SSD) 1 % cream APPLY TOPICALLY TO AFFECTED AREA DAILY NEEDED 08/03/19 20 Active clopidogrel (PLAVIX) 75 MG tablet Take 75 mg by mouth 1 (one) time each day 01/02/20 21 Active glimepiride (AMARYL) 4 MG tablet Take 4 mg by mouth 1 (one) time each day 02/27/20 21 Active ezetimibe (ZETIA) 10 MG tablet Take 10 mg by mouth 1 (one) time each day 07/16/19 22 Active Active Problems Problem Noted Date Diagnosed Date Abdominal aortic aneurysm without rupture 2020 Overview (08/20/2021): Last Assessment & Plan: Impression: Patient reports he has had a history of abdominal aortic aneurysm repair 5 or 6 years ago at an outside facility. He has not been seen since the procedure. Plan: Patient to follow-up in 6 months for re-evaluation with CTA of aorta with runoff. 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 Plan: Further management as PCP. Tobacco use 12/09/2016 Atherosclerosis of [place] arteries of the extrem ities 09/18/2016 Overview (07/03/2019): Last Assessment & Plan: Impression: Patient continues do well status post left femoral to posterior tib bypass and BANKRUPTCY PROCESSOR stenting of his right SFA. He denies any worsening claudication. No surgical intervention currently needed. Plan: Highly recommended smoking cessation. Patient follow-up in 6 months for re-evaluation and repeat lower extremity arterial duplex surveillance. Last Assessment & Plan: Patient continues to do well status post left femoral tibial bypass graft in 2016, and right SFA stenting. Plan: Follow-up in 6 months for re-evaluation with bilateral lower extremity arterial duplex Intermittent claudication of bilateral lower limbs co-occurrent and due to atherosclerosis 09/18/2016 Overview (03/05/2021): Last Assessment & Plan: Patient has undergone staged bilateral lower extremity endovascular interventions. His claudication symptoms have resolved completely. He is pleased with the result and has no complaints. Continue anti-platelet therapy and follow-up in 3 months for duplex. Laryngopharyngeal reflux 08/03/2016 Benign essential hypertension 05/15/2016 Edema 05/15/2016 Peripheral vascular disease 05/15/2016 Occlusion and stenosis of bilateral carotid radha jg 04/30/2016 Overview (07/03/2019): Last Assessment & Plan: Impression: Patient continues do well status post bilateral carotid endarterectomies. He remains asymptomatic. Plan: Highly recommended smoking cessation. Patient follow-up in 6 months for re-evaluation and repeat carotid duplex surveillance. Last Assessment & Plan: Patient doing well status post bilateral carotid artery endarterectomy in the past. Continue continues to be asymptomatic. Plan: Follow-up in 1 year for re-evaluation with bilateral carotid artery duplex Atherosclerosis of artery 04/07/2016 Immunizations Immunization Administration Dates Next Due Fluzone High-Dose 05/06/2020 Influenza LAIV (Nasal) 05/06/2020 Influenza Split High Dose Preservative Free IM 1 07/31/2018,05/18/2018 Influenza, Injectable, Quadrivalent 04/11/2019 Influenza, Quadrivalent 05/06/2020 Pfizer Sars-cov-2 Vaccination 10/02/2020, 021 Pneumococcal Conjugate 13-Valent 05/18/2018 Pneumococcal Polysaccharide 05/31/2019 Family History Medical History Relation Comments Implantation of cardiac pacemaker Mother Relation Status Comments Mother Social History Tobacco Use Types Packs/Day Years Used Date Smoking Tobacco: Every Day Cigarettes Smokeless Tobacco: Never Tobacco Cessation:Ready to Q uit: No; Counseling Given: Yes Alcohol Use Standard Drinks/Week Comments Yes 0 (1 standard drink = 0.6 oz pur e alcohol) Sex and Gender Information Value Date Recorded Sex Assigned at Not on file 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2:21 PM MDT Gender Identity Not on file Sexual Orientation Not on file Last Filed Vital Signs Vital Sign Reading Time Taken Comments Blood Pressure 134/78 08/20/2021 9:19 AM COMPUTING SYSTEMS MECHANIC Pulse - - Temperature 35.6 C (96.1 F) 08/20/2021 9:19 AM COMPUTING SYSTEMS MECHANIC Respiratory Rate 18 08/20/2021 9:19 AM COMPUTING SYSTEMS MECHANIC Oxygen Saturation - - Inhaled Oxygen Concentration - - Weight 102 kg (225 lb) 08/20/2021 9:19 AM COMPUTING SYSTEMS MECHANIC Height 180.3 cm (5' 11) 08/20/2021 9:19 AM COMPUTING SYSTEMS MECHANIC Body Mass Index 31.38 08/20/2021 9:19 AM COMPUTING SYSTEMS MECHANIC Plan of Treatment Health Maintenance Due Date Last Done Comments COVID-19 Vaccine ( season) 2024, 09/05/2020 Influenza Vaccine (#1) 2025 05/06/2020 Pneumococcal PPSV23/PCV13 65 + Years / Low and Medium Risk Completed 05/31/2019, 05/18/2018 Insurance COVENTRY Care Teams Unit Operator Relationship Specialty Start Date End Date José Miguel Mccrary MD [address] [place] [address] PCP - General Internal Medicine 11/24/18
--- OUTSIDE RECORDS SUMMARY | 2025-02-26 15:16 | XMS_ITS | Encounter Summary ---
Author Organization [facility] Facility Care Team Providers Care Sanding Machine Operator Name Role Phone José Miguel Mccrary MD Primary Care Provide r José Miguel Mccrary MD Primary Care Provide r Anjel Marshall MD Unavailable [phone] Mason Potter MD Unavailable [phone] Jamarcus Barreto MD Unavailable [phone] Shabbir Casey MD Unavailable [phone] Encounter Details Date Type Department Care Team (Latest Contact Info) Description 05/15/2016 Orders Only [facility] CLINCONV ProviderDaniel MD [address] [place] [address] Social History Tobacco Use Types Packs/Day Years Used Date Smoking Tobacco: Never Assessed Comments:Smoking History Pac ks/day: 1 Packs Alcohol Use Standard Drinks/Week Comments Yes 0 (1 standard drink = 0.6 oz pur e alcohol) Sex and Gender Information Value Date Recorded Sex Assigned at Not on file 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 Historical Provider Final Res ult documented in this encounter Visit Diagnoses Not on filedocumented in this encounter Care Teams Sanding Machine Operator Relationship Specialty Start Date End Date José Miguel Mccrary MD [address] [place] [address] PCP - General 09/29/13 12/30/20 José Miguel Mccrary MD [address] [place] [address] PCP - General Internal Medicine 12/31/20 Anjel Marshall MD [address] [place] [address] Project Development Engineer Cardiology 12/31/20 Mason Potter MD [address] [facility] [address] [facility] [address] [place] [address] Surgeon Vascular Surgery 01/01/21 Jamarcus Barreto MD [address] [place] [address] Referring Physician Hematology 08/20/22 [place] [address] [facility] [address] [place] [phone] Referring Physician Surgery 08/20/22 documented as of this encounter
--- OUTSIDE RECORDS SUMMARY | 2025-02-26 15:16 | XMS_ITS | Clinical Summary ---
Author Organization [facility] [id number] [facility] Address [address] [place] [address] Care Team Providers Care Certified Adaptive Physical Educator Name Role Phone José Miguel Mccrary MD Primary Care Provider [phone] Allergies Active Allergy Reactions Criticality Noted Date [...] 30 mg 30 Tablet 06/19/2022 3:09 PM SPECIFICATION WRITER 2 Active oxyCODONE (ROXICODONE) 5 mg tabletIndications:HC [...] Comments Blood Pressure 135/55 08/05/2022 1:30 PM SPECIFICATION WRITER Pulse 71 08/05/2022 1:30 PM SPECIFICATION WRITER Temperature 36.6 C (97.9 F) 08/05/2022 7:05 AM SPECIFICATION WRITER Respiratory Rate 20 08/05/2022 10:44 AM SPECIFICATION WRITER Oxygen Saturation 98% 08/05/2022 1:30 PM SPECIFICATION WRITER Inhaled Oxygen Concentration - - Weight 90.7 kg (200 lb) 08/05/2022 7:05 AM SPECIFICATION WRITER Height 180.3 cm (5' 11) 08/05/2022 7:05 AM SPECIFICATION WRITER Body Mass Index 27.89 08/05/2022 7:05 AM SPECIFICATION WRITER Plan of Treatment Health Maintenance Due Date Last Done Comments DIABETES ANNUAL FOOT EXAM 1964 DIABETES ANNUAL RETINAL EXAM 1964 DIABETES MICROALBUMIN ANNUAL SCREEN 1964 LDL CHOLESTEROL ANNUAL 1964 DTAP/TDAP/TD VACCINES (1 - Tdap) 1965 ZOSTER VACCINE (1 of 2) 1996 RSV VACCINE (60+ or ) (1 - 1-dose 75+ series) 2021 COVID-19 Vaccine ( - 2023-2 5 season) 2024 10/02/2020, 09/05/2020 DIABETES HBA1C Q 6 MONTHS 05/18/2024 11/16/2023 INFLUENZA VACCINE (#1) 2025 , 05/06/2020, 05/06/2020, Additional history exists PNEUMOCOCCAL VACCINE 50+ YEARS Completed 05/31/2019 , 05/18/2018 Medical Devices Implanted Type Area Stem Roller Or Crusher Operator Device Identifier Shelf Expiration Date Model / Serial / Lot Hemostat Surg Snow 2x4in [id number] Implanted:Qty : 1 on 06/18/2022 by Shabbir Casey MD at [facility] N/A: Abdomen [employer] 02/09/[id number] / / [id number] Insurance AETNA O MCR AETNA O [facility] RX AETNA Medicare Part D Advance Directives For more information, please contact: [phone] * Full Code (Latest Code Status on File) Date Activated Date Inactivated Comments 06/18/2022 11:01 AM 06/19/2022 5:49 PM Care Teams Certified Adaptive Physical Educator Relationship Specialty Start Date End Date José Miguel Mccrary MD [address] [place] [phone] PCP - General Internal Medicine 01/05/22
--- OUTSIDE RECORDS SUMMARY | 2025-02-26 15:16 | XMS_ITS | Continuity of Care Document ---
Author Organization [facility] Address [address] [address] Insurance Providers Payer Plan Claims Address Claims Phone Policy Number Group Number Relation Employer Guarantor Name Guarantor Guarantor Address Guarantor Phone [employer] [address], [place] [address] tel:[phone] Self Robin Buchanan 1945 [address] [place] [address] [employer] MEDIC ARE ADV [address], [place] [address] tel:[phone] Self Robin Buchanan 1945 [address] [place] [address] [employer] [address], [place] [address] [id number] Self Robin Buchanan 1945 [address] [place] [address] Problems Condition ICD9 code ICD10 code SNOMED code Start Date End Date S tatus Type 2 diabetes mellitus without complications E11.9 [facility] Essential (primary) hypertension I10 Working Nonrheumatic aortic (valve) stenosis I35.0 Working Liver cell carcinoma C22.0 [facility] Atherosclerosis of [place] arteries of extremities with intermittent claudication, bilateral [...]
[2025-02-26 15:25] LABS: Albumin Level 4.0 g/dL (3.5-5.1); Anion Gap 8 mmol/L (4-12); Blood Urea Nitrogen 27 mg/dL (9-20); Calcium 9.1 mg/dL (8.4-10.2); Carbon Dioxide 23 mmol/L (22-30); Chloride 107 mmol/L (98-107); Estimated Glomerular Filt Rate 39; Glucose 137 mg/dL (65-110); Potassium 3.4 mmol/L (3.4-5.0); Sodium 138 mmol/L (137-145)
[2025-02-26 16:09] LABS: Total Protein Urine Random 294 mg/dL; Ur Ttl Prot Creatinine Ratio 3.33 mg/mg (0-0.20)
== END 2025-02-26 14:13 | disposition home or self-care (01) ==
LOC: ANHLAB 14:13
PROVIDERS: PCP Emergency Medicine; Visit Provider Internal Medicine Nephrology
DX: E11.22 Type 2 diabetes mellitus with diabetic chronic kidney disease (principal); I12.9 Hypertensive chronic kidney disease with stage 1 through stage 4 chronic kidney disease, or unspecified chronic kidney disease; N18.32 Chronic kidney disease, stage 3b; N25.81 Secondary hyperparathyroidism of renal origin; E55.9 Vitamin D deficiency, unspecified
CPT/HCPCS: 36415; 80069; 82306; 82570; 84156

== ENCOUNTER 2025-04-18 09:06 | Outpatient (CLI) | payer MEDICARE, SELFPAY ==
[2025-04-18 10:37] LABS: Hemoglobin A1C 6.2 % (<5.7)
[2025-04-18 10:49] LABS: Alanine Aminotransferase 18 U/L (6-50); Albumin Level 4.1 g/dL (3.5-5.1); Alkaline Phosphatase 66 U/L (38-126); Anion Gap 6 mmol/L (4-12); Aspartate Amino Transferase 35 U/L (17-59); Bilirubin,Total 0.5 mg/dL (0.2-1.3); Blood Urea Nitrogen 26 mg/dL (9-20); Calcium 9.3 mg/dL (8.4-10.2); Carbon Dioxide 27 mmol/L (22-30); Chloride 104 mmol/L (98-107); Cholesterol 124 mg/dL (0-200); Estimated Glomerular Filt Rate 39; Glucose 44 mg/dL (65-110); HDL Direct 63 mg/dL; Potassium 3.0 mmol/L (3.4-5.0); Sodium 137 mmol/L (137-145); Total Protein 7.2 g/dL (6.3-8.2); Triglycerides 77 mg/dL (<150)
[2025-04-18 11:21] LABS: Parathyroid Intact 41.4 pg/mL (14.5-75.2)
[2025-04-18 11:34] LABS: Total Protein Urine Random 168 mg/dL; Ur Ttl Prot Creatinine Ratio 3.54 mg/mg (0-0.20)
[2025-04-18 13:43] LABS: MALB Creatinine Ratio 1498.8 mg/g (0-30)
== END 2025-04-18 09:07 | disposition home or self-care (01) ==
PROVIDERS: PCP Emergency Medicine; Referring Provider Internal Medicine Nephrology; Visit Provider Emergency Medicine
DX: E55.9 Vitamin D deficiency, unspecified (principal); E78.5 Hyperlipidemia, unspecified; I12.9 Hypertensive chronic kidney disease with stage 1 through stage 4 chronic kidney disease, or unspecified chronic kidney disease; N18.32 Chronic kidney disease, stage 3b; E11.22 Type 2 diabetes mellitus with diabetic chronic kidney disease; N25.81 Secondary hyperparathyroidism of renal origin
CPT/HCPCS: 36415; 80053; 80061; 82043; 82306; 82570; 83036; 83970; 84100; 84156

== ENCOUNTER 2025-06-21 11:10 | Outpatient (CLI) | payer MEDICARE, SELFPAY ==
[2025-06-21 12:03] LABS: Albumin Level 3.8 g/dL (3.5-5.1); Anion Gap 2 mmol/L (4-12); Blood Urea Nitrogen 28 mg/dL (9-20); Calcium 8.5 mg/dL (8.4-10.2); Carbon Dioxide 28 mmol/L (22-30); Chloride 102 mmol/L (98-107); Estimated Glomerular Filt Rate 39; Glucose 201 mg/dL (65-110); Potassium 3.4 mmol/L (3.4-5.0); Sodium 132 mmol/L (137-145)
== END 2025-06-21 11:11 | disposition home or self-care (01) ==
LOC: ANHLAB 11:11
PROVIDERS: PCP Emergency Medicine; Visit Provider Internal Medicine Nephrology
DX: N18.32 Chronic kidney disease, stage 3b (principal)
CPT/HCPCS: 36415; 80069